=== PATIENT | male | born 1950 | race Caucasian/White ===

== ENCOUNTER → 2020-03-12 14:53 | Outpatient (BNVA) | payer OTHER, MEDICARE, SELFPAY | PROVIDERS: PCP Internal Medicine; Visit Provider Hospitalist ==

== ENCOUNTER → 2020-09-09 15:52 | Outpatient (BNVA) | payer MEDICARE, SELFPAY | PROVIDERS: PCP Internal Medicine; Visit Provider Hospitalist | DX: G47.33 Obstructive sleep apnea (adult) (pediatric) (principal); J41.0 Simple chronic bronchitis; R07.9 Chest pain, unspecified; Z99.89 Dependence on other enabling machines and devices | CPT/HCPCS: 99212 ==

== ENCOUNTER 2021-03-08 14:58 | Outpatient (REF) | payer MEDICARE, SELFPAY ==
--- NOTE | ~2021-03-08 | XR_ITS ---
EXAMINATION: XR CHEST CLINICAL INFORMATION: Chest pain COMPARISON: Chest radiograph from 02/24/2019 TECHNIQUE: 2 views of the chest were obtained. FINDINGS: No focal consolidation. No pneumothorax. Trachea is midline. Cardiomediastinal silhouette is not enlarged. Aorta demonstrates atherosclerotic calcifications. No large pleural effusion. Stable elevation the right hemidiaphragm. Degenerative changes of the thoracolumbar spine. Soft tissues are unremarkable. XR/XR chest 2V IMPRESSION: No acute cardiopulmonary process.
== END 2021-03-08 14:59 | disposition home or self-care (01) ==
LOC: HO.XRAY 14:58
PROVIDERS: PCP Internal Medicine; Visit Provider Hospitalist
DX: R07.9 Chest pain, unspecified (principal); J41.0 Simple chronic bronchitis; Z99.89 Dependence on other enabling machines and devices
CPT/HCPCS: 71046

== ENCOUNTER → 2021-07-08 15:03 | Outpatient (BNVA) | payer MEDICARE, SELFPAY | PROVIDERS: PCP Internal Medicine; Visit Provider Hospitalist | DX: J41.0 Simple chronic bronchitis (principal); G47.33 Obstructive sleep apnea (adult) (pediatric); R09.89 Other specified symptoms and signs involving the circulatory and respiratory systems; Z99.89 Dependence on other enabling machines and devices | CPT/HCPCS: 99212 ==

== ENCOUNTER 2022-04-11 09:04 | Day surgery (SDC) | payer MEDICARE, SELFPAY ==
--- NOTE | 2022-04-10 13:15 | P.CONAN_ITS ---
Documented by User: Natali Santana NP 04/10/22 13:16 HPI - Anesthesia Eval Consult details Narrative: 72yo M for Colonoscopy PMFSH Active Problems Active Problems: All Active Problems (Updated 04/10/22 @ 12:51 by Jennifer Weir RN) Chest crackles (Acute) COPD (chronic obstructive pulmonary disease) (Acute) Asthma (Acute) ISMA on CPAP (Acute) Chest pain (Acute) Past Medical History Medical History (Updated 04/10/22 @ 12:51 by Jennifer Weir RN) Anxiety Asthma Basal cell carcinoma Chest crackles Chest pain COPD (chronic obstructive pulmonary disease) Eczema External hemorrhoid GERD (gastroesophageal reflux disease) HTN (hypertension) Hypercholesteremia Neuropathy ISMA on CPAP Seizure Unsteady gait Vertigo Surgical History Surgical History (Updated 04/10/22 @ 12:51 by Jennifer Weir RN) H/O lymph node excision History of carpal tunnel release History of cataract surgery Social History Social History (Updated 03/08/21 @ 15:23 by JIMMY Cortez) Patient Tobacco Use Status: Former Tobacco user Tobacco use type: Cigarette Years Smoked: 30+ years Are you DNR?: No Advance Directives: No Advance Directives Information Provided: Yes Nutrition Risks: No Nutritional Risk Meds Allergies Allergy/AdvReac Type Severity Reaction Status Date / Time Seasonal Allergies Allergy Unknown Verified 04/10/22 12:46 Home Medications Medication Instructions Recorded Confirmed Last Taken Type albuterol sulfate 90 mcg/actuation 2 puff inhalation Q4-6H PRN 03/12/20 03/12/20 04/10/22 History aerosol inhaler Wheezing budesonide-formoterol HFA 160 2 puff inhalation BID 03/12/20 03/12/20 04/10/22 History mcg-4.5 mcg/actuation aerosol inhaler (Symbicort) fexofenadine 180 mg tablet 180 mg PO DAILY 03/12/20 03/12/20 04/10/22 History (Zoya Allergy) fluticasone propionate 50 1 spray intranasal BID 03/12/20 03/12/20 04/10/22 History mcg/actuation nasal spray,suspension lorazepam 0.5 mg tablet 0.5 mg PO DAILY PRN Anxiety 03/12/20 03/12/20 02/07/22 History multivitamin (Daily Multi-Vitamin 1 tab PO DAILY 03/12/20 03/12/20 04/10/22 History tablet) omeprazole 20 mg capsule,delayed 20 mg PO BID 03/12/20 03/12/20 04/10/22 History release phenytoin sodium extended 200 mg 200 mg PO BID 03/12/20 03/12/20 04/11/22 History capsule pyridoxine (vitamin B6) 50 mg 50 mg PO DAILY 03/12/20 03/12/20 04/10/22 History tablet simvastatin 40 mg tablet 40 mg PO DAILY 03/12/20 03/12/20 04/10/22 History tamsulosin 0.4 mg capsule (Flomax) 0.4 mg PO DAILY 03/12/20 03/12/20 04/10/22 History vitamin B complex 1 cap PO DAILY 03/12/20 03/12/20 04/10/22 History zonisamide 50 mg capsule 50 mg PO BID 03/12/20 03/12/20 04/11/22 History gabapentin 600 mg tablet 1,200 mg PO BID 03/08/21 04/10/22 History metoprolol succinate 25 mg 1 tab PO DAILY 04/11/22 04/11/22 04/11/22 History tablet,extended release 24 hr Exam Exam Date and Time: April 10, 2022 131 Assessment and Plan Assessment Anesthesia Assessment: Chart Reviewed Documented by User: Joan Jiménez MD 04/11/22 10:07 [facility] Past Medical History Medical History (Updated 04/10/22 @ 12:51 by Jennifer Weir RN) Anxiety Asthma Basal cell carcinoma Chest crackles Chest pain COPD (chronic obstructive pulmonary disease) Eczema External hemorrhoid GERD (gastroesophageal reflux disease) HTN (hypertension) Hypercholesteremia Neuropathy ISMA on CPAP Seizure Unsteady gait Vertigo Family History Family history of problems with anesthesia: No Surgical History Surgical History (Updated 04/10/22 @ 12:51 by Jennifer Weir RN) H/O lymph node excision History of carpal tunnel release History of cataract surgery History of Problems with Anesthesia: No Social History Social History (Updated 03/08/21 @ 15:23 by JIMMY Cortez) Patient Tobacco Use Status: Former Tobacco user Tobacco use type: Cigarette Years Smoked: 30+ years Are you DNR?: No Advance Directives: No Advance Directives Information Provided: Yes Nutrition Risks: No Nutritional Risk Meds Allergies Allergy/AdvReac Type Severity Reaction Status Date / Time Seasonal Allergies Allergy Unknown Verified 04/10/22 12:46 Home Medications Medication Instructions Recorded Confirmed Last Taken Type albuterol sulfate 90 mcg/actuation 2 puff inhalation Q4-6H PRN 03/12/20 03/12/20 04/10/22 History aerosol inhaler Wheezing budesonide-formoterol HFA 160 2 puff inhalation BID 03/12/20 03/12/20 04/10/22 History mcg-4.5 mcg/actuation aerosol inhaler (Symbicort) fexofenadine 180 mg tablet 180 mg PO DAILY 03/12/20 03/12/20 04/10/22 History (Zoya Allergy) fluticasone propionate 50 1 spray intranasal BID 03/12/20 03/12/20 04/10/22 History mcg/actuation nasal spray,suspension lorazepam 0.5 mg tablet 0.5 mg PO DAILY PRN Anxiety 03/12/20 03/12/20 02/07/22 History multivitamin (Daily Multi-Vitamin 1 tab PO DAILY 03/12/20 03/12/20 04/10/22 History tablet) omeprazole 20 mg capsule,delayed 20 mg PO BID 03/12/20 03/12/20 04/10/22 History release phenytoin sodium extended 200 mg 200 mg PO BID 03/12/20 03/12/20 04/11/22 Hist ory capsule pyridoxine (vitamin B6) 50 mg 50 mg PO DAILY 03/12/20 03/12/20 04/10/22 History tablet simvastatin 40 mg tablet 40 mg PO DAILY 03/12/20 03/12/20 04/10/22 History tamsulosin 0.4 mg capsule (Flomax) 0.4 mg PO DAILY 03/12/20 03/12/20 04/10/22 History vitamin B complex 1 cap PO DAILY 03/12/20 03/12/20 04/10/22 History zonisamide 50 mg capsule 50 mg PO BID 03/12/20 03/12/20 04/11/22 History gabapentin 600 mg tablet 1,200 mg PO BID 03/08/21 04/10/22 History metoprolol succinate 25 mg 1 tab PO DAILY 04/11/22 04/11/22 04/11/22 History tablet,extended release 24 hr Exam Airway Mallampati Class: II TM Dist: >3cm Neck ROM: Full Denture: Upper and Lower Heart: rrr Lungs: cta Assessment and Plan Assessment Anesthesia Assessment: Anesthesia Plan Discussed Final Anesthetic Review Family History of Problems with Anesthesia: No History of Problems with Anesthesia: No NPO: Yes ASA Class: III Final Preanesthetic Review: No Changes in Pt Med Stat, Meds/Allgs Chart Reviewed, Consent Obtained/Reviewed and Anes Risks/Benef Reviewed Patient Risk: Intermediate Procedure Risk: Low Anesthetic Plan Anesthetic Plan: MAC: Disposition: Standard PACU
[2022-04-11 06:23] VITALS: BMI 28.1
[2022-04-11 09:07] VITALS: BP 130/78; PULSE 76; RESP 18; TEMP 36.6; O2SAT 98
[2022-04-11] MEDS: Lactated Ringers 1,000 ML 100 ML IVCONT (09:53)
--- NOTE | 2022-04-11 10:31 | MHC.SHP ---
Pre-Procedural Eval Section A Date of Service: 04/11/22 Section B Chief Complaint: screening Details of Present Illness: see H&P no changes Relevant Family History (Specify if Yes): No Relevant Social History: None Present Medications: see Short Stay Collaborative assessment Medical History: No relevant PMH History of Previous Operations: No relevant previous surgery Allergies: Allergies Allergy/AdvReac Type Severity Reaction Status Date / Time Seasonal Allergies Allergy Unknown Verified 04/10/22 12:46 Review of Systems Sugical H&P ROS: Negative: Constitution, Cardiovascular, Respiratory, Neurological, Psychiatric, Hem-Onc, Allergic/Immunologic, Gastrointestinal, Genitourinary, Musculoskeletal, Integumentary, Endocrine and Eyes/Ears/Nose/Throat Exam Surgical H&P Exam: Normal: HEENT, Normal: Heart, Normal: Lungs, Normal: Extremities, Normal: Abdomen, Normal: Skin and Normal: Neurological Plan Diagnosis/Plan: Unchanged I have reviewed the history and physical and performed a pertinent physical examination on my patient. No changes have occurred unless specified. Time Spent With Patient Time: Total time managing care of this patient today ____ minutes.
--- NOTE | 2022-04-11 11:04 | PM.OP ---
Brief Operative Note Date of Service: 04/11/22 Pre-op diagnosis: screening Post-op diagnosis: same Surgeon: Lopez Fletcher Anesthesia: MAC Was an Rescue Boat Operator used for this Procedure?: No Estimated blood loss (mL): 2 Pathology: other Condition: stable Disposition: PACU
[2022-04-11 11:10] VITALS: BP 103/61; PULSE 57; RESP 18; TEMP 36.8; O2SAT 94
[2022-04-11 11:25] VITALS: BP 122/61; PULSE 51; RESP 18; TEMP 36.8; O2SAT 98
[2022-04-11 11:40] VITALS: BP 142/70; PULSE 48; RESP 18; TEMP 36.8; O2SAT 98
--- NOTE | 2022-04-11 11:40 | OP_ITS ---
SURGEON: Lopez Fletcher MD INDICATIONS: Colon cancer screening and prior history of adenomatous colon polyps. PREOPERATIVE DIAGNOSIS: POSTOPERATIVE DIAGNOSIS: PROCEDURE PERFORMED: Colonoscopy to the terminal ileum with biopsy and snare polypectomy. ESTIMATED BLOOD LOSS: COMPLICATIONS: ANESTHESIA: Monitored anesthesia care. ASSISTANTS: SPECIMENS: DESCRIPTION OF PROCEDURE: The procedure was performed on 04/11/2022. A history and physical were performed. The risks and benefits of the procedure were explained to the patient. Informed consent was obtained. The patient was placed in the left lateral decubitus position. A digital rectal exam was performed and was found to be normal. The Olympus pediatric video colonoscope was introduced into the rectum and advanced to the cecum without difficulty. The cecum was identified by transillumination, palpation, and identification of ileocecal valve examination was performed. The scope was removed. He tolerated the procedure well and was returned to the recovery area in stable condition. FINDINGS: The terminal ileum was normal. The visualized colonic mucosa was normal. There was some liquid stool limiting the sensitivity examination for detection of small polyps in the right colon and transverse colon. This was washed and suctioned. There were multiple colonic polyps removed with a combination of snare polypectomy and biopsy forceps. All were less than 10 mm. A polyp in the right colon was removed with the cold snare but not recovered due to technical reasons. Other polyps at 70 cm, 65 cm, 50 cm, and 45 cm were all removed, recovered. There was mild sigmoid diverticulosis. Retroflexed examination showed small internal hemorrhoids. IMPRESSION: Colon polyps. RECOMMENDATION: Follow up the biopsy results. MD JEFF Clark/JOHNATHAN / [id number] MTDD
== END 2022-04-11 12:30 | disposition home or self-care (01) ==
PROVIDERS: PCP Family Medicine; Visit Provider Internal Medicine Gastroenterology
PROC: 0DJD8ZZ Inspection of Lower Intestinal Tract, Via Natural or Artificial Opening Endoscopic (ICD-10-PCS; CPT 45378; principal; 2022-04-11 10:30)
DX: Z12.11 Encounter for screening for malignant neoplasm of colon (principal); Z86.010 Personal history of colon polyps; D12.4 Benign neoplasm of descending colon; D12.5 Benign neoplasm of sigmoid colon; K57.30 Diverticulosis of large intestine without perforation or abscess without bleeding; K64.8 Other hemorrhoids; K64.4 Residual hemorrhoidal skin tags; K21.9 Gastro-esophageal reflux disease without esophagitis; I10 Essential (primary) hypertension; E78.00 Pure hypercholesterolemia, unspecified; J45.909 Unspecified asthma, uncomplicated; G47.33 Obstructive sleep apnea (adult) (pediatric); G62.9 Polyneuropathy, unspecified; R56.9 Unspecified convulsions; R26.81 Unsteadiness on feet; Z79.51 Long term (current) use of inhaled steroids; Z79.899 Other long term (current) drug therapy
CPT/HCPCS: 45385; 45380; 88305; J3010

== ENCOUNTER → 2022-08-08 13:46 | Outpatient (BNVA) | payer MEDICARE, SELFPAY | PROVIDERS: PCP Family Medicine; Visit Provider Hospitalist | DX: G47.33 Obstructive sleep apnea (adult) (pediatric) (principal); J41.0 Simple chronic bronchitis; R09.89 Other specified symptoms and signs involving the circulatory and respiratory systems; Z99.89 Dependence on other enabling machines and devices; Z23 Encounter for immunization | CPT/HCPCS: 90471; 90677; 99212 ==

== ENCOUNTER → 2022-12-14 14:41 | Outpatient (REF) | payer MEDICARE, SELFPAY ==
--- NOTE | 2022-12-14 14:43 | CA_ITS ---
Transthoracic Echocardiogram Patient (Last, First, Middle): Jamie Gaston, Gender: Male Date of : 1950 Age: 72 Procedure Date: 12/14/2022 Procedure Type: Transthoracic Echocardiogram Location: OP Height: 167.64 cm Weight: 78.93 kg BSA: 1.89 m2 Heart Rate: 50 bpm BP: 152 / 70 mmHg Stamping Die Try Out Worker: SELENA/SHEMAR Referring MD: Fabiana Tripathi MD Tilting Head Band Sawyer: Royer Negro MD Symptoms: I31.39 PERICARDIAL EFFUSION NON INFLAMMATORY Study Quality: Adequate ECG Rhythm: Sinus bradycardia Conclusions: - 1. Normal LV ejection fraction 60 65% with normal diastolic filling pattern 2. Normal cardiac valvular Doppler 3. Mildly dilated ascending aorta 3.8 cm 4. Small circumferential pericardial effusion without clear evidence of tamponade Findings Left Ventricle Normal left ventricular size, thickness, and systolic function. The visually estimated ejection fraction is between 60-65%. Spectral Doppler is indicative of a normal filling pattern. Right Ventricle Normal right ventricular cavity size and systolic function. Atria The left atrium is normal in size. There is lipomatous hypertrophy of the interatrial septum. There is no evidence of interatrial shunt. The right atrium is normal in size. Aortic Valve The aortic valve structure and function is likely normal. There is no aortic valve stenosis. There is no aortic valve regurgitation. Mitral Valve Normal mitral valve structure and function. There is trace mitral valve regurgitation. There is no mitral valve stenosis. Pulmonic Valve The pulmonic valve is likely normal. Tricuspid Valve Normal tricuspid valve structure. Tricuspid regurgitation envelope is inadequate for calculation of right ventricular systolic pressure. Normal right atrial pressure. Great Vessels The pulmonary artery was not well visualized. There is mild dilatation of the ascending aorta measuring 3.80 cm. Venous The inferior vena cava is normal in size and collapses greater than 50% with inspiration. Pericardium/Pleural There is a small circumferential pericardial effusion. There are no definitive echocardiographic findings of tamponade physiology. Prior Study Comparison No prior study available for comparison. Measurements 2D Linear Measurements IVSd: 0.97 0.6-0.9/0.6-1.0 cm LVIDd: 5.46 3.9-5.3/4.2-5.9 cm LVIDd Index: 2.89 2.4-3.2/2.2-3.1 cm/m2 LVIDs: 3.18 2.0-3.6 cm LVPWd: 0.77 0.7-1.1 cm LA Diam: 4.80 2.7-3.8/3.0-4.0 cm LAIDs Index: 2.54 1.5-2.3 cm/m2 LV Mass: 217.76 67-162/88-224 g LV Mass Index: 115.22 43-95/49-115 g/m2 LVOT Diam: 2.10 3.0+(-)1.3 cm 2D Systolic Function EF 4C: 66.70 >55% EF 2C: 56.00 >55% EF BiP: 63.10 >55% Mitral Valve MV Pk E: 1.18 MV PK A: 0.81 MV Decel Time: 197.00 E/A: 1.50 E'Lateral: 5.44 E'Medial: 5.55 E/E' Med: 21.30 E/E' Lat: 21.70 PHT: 58.00 MVA PHT: 3.79 Decel [place]: 5.98 Aortic Valve AoV Pk Gagandeep: 1.27 AoV Mn Gagandeep: 0.93 AoV VTI: 0.31 AoV Pk Grad: 6.00 Aov Mn Grad: 4.00 RAQUEL Cont.VTI: 2.82 AI Pk Gagandeep: 4.73 AI [place]: 1.98 LVOT LVOT Pk Gagandeep: 1.05 LVOT Mn Gagandeep: 0.69 LVOT VTI: 0.25 LVOT Pk Grad: 4.00 LVOT Mn Grad: 2.00 LVOT Diam: 2.10 LVOT Area: 3.46 Diastolic Function MV Pk E: 1.18 MV Pk A: 0.81 E/A: 1.50 E'Medial: 5.55 E/E' Med: 21.30 E' Laterial: 5.44 E/E' Lat: 21.70 Right Ventricle TAPSE (mm): 23.90 TVS' Gagandeep: 13.90 Tricuspid Valve RA Press: 3.00 Great Vessels Aorta Sinus of Valsalva: 3.40 2.0-3.5 cm Ao Asc: 3.80 2.1-3.4 cm Pulmonary Veins Pulm Vein S/D 1.30 Pulmonary Valve PV Pk Gagandeep: 1.09 Peak PV Grad: 5.00 Updated in Other Vendor System with Status of Final Royer Negro MD electronically signed on 12/14/2022 4:19:10 PM with status of Final
== END ==
LOC: HO.CARD 14:41
PROVIDERS: PCP Family Medicine; Visit Provider Family Medicine
DX: I31.9 Disease of pericardium, unspecified (principal)
CPT/HCPCS: 93306

== ENCOUNTER → 2022-12-14 14:43 | Outpatient (BNV) | payer MEDICARE, SELFPAY | PROVIDERS: PCP Family Medicine; Visit Provider Internal Medicine Cardiovascular Disease | DX: I31.39 Other pericardial effusion (noninflammatory) (principal) | CPT/HCPCS: 93306 ==

== ENCOUNTER 2023-06-07 13:54 | Outpatient (AMB) | payer MEDICARE, SELFPAY ==
[2023-06-07 14:01] VITALS: PULSE 58; O2SAT 98; BMI 27.9
--- NOTE | 2023-06-07 14:01 | A.OFFVIS_ITS ---
Vital Signs 06/07/23 14:01 Height 5 ft 6 in Weight 173 lb BMI 27.9 Pulse 58 Pulse Source Pulse Oximeter Pulse Oximetry (%) 98 Oxygen Delivery Method Room Air Intake Visit Reasons: isma Rac Specialist Required: No Allergies Seasonal Allergies Allergy (Verified 06/07/23 14:03) Unknown HPI Comments Details: The patient is a 73-year-old? gentleman with a known history of COPD in addition obstructive sleep apnea. He? has been tolerating his CPAP. The CPAP therapy has been affecting beneficial.? However the mask can does follow often does have some leakage issues. His AHI? upon download in the machine demonstrated that was elevated at 7.5. The average? pressure was around 12.5 cm of mercury. I did adjust the machine up to 8 cm to? 16 cm. A ramp will be at 6 cm. Patient also complains of back pain. Sometimes is? right-sided chest pain along with the period he did have a complete cardiac? evaluation last year. At this point will request a chest x-ray. He continues use? respiratory therapy. He is also complaining of difficulty sleeping. He was given? Ativan to see if that will help him relax. However, the patient will avoid? taking the Ativan if possible to try to minimize dependence. 07/08/2021 the patient is here for a pulmonary follow-up visit. Overall the patient has been doing well. He continues use the CPAP. Although recently did undergo skin cancer surgery and he could not use his mask because of the surgical site. Therefore, he was sleeping elevated and did very well in a did not have any significant snoring or daytime drowsiness. However, once he lays down flat or on his side he does have significant sleep apnea. He is wondering about other devices such as the hypoglossal nerve stimulator. I advised against this because of his invasive nature. Also is not as effective as the goal standard. The patient is agreeable to continue CPAP at this time. The surgical site appears to have healed and therefore he will go ahead and restart using his CPAP from a respiratory status is doing well he has not required any rescue inhalers. 08/08/2022 the patient is here for pulmonary follow-up visit. Overall the patient is doing well. He is having some difficulties tolerating the CPAP pressures. She feels like her to high sometimes. He does have some air leakage. His AHI is slightly elevated at 4.9 events per hour. It appears that he has high AHI is when he has more air leakage. I did tweak the pressure is somewhat decreasing the maximum pressure from 18-16 in increasing the minimum pressure from 10-11 cm. The patient also also has a ramp. He also continues uses respiratory therapy with good effect. Still has some crackles on examination but minimal. Will have a chest x-ray prior to the next visit sometime in the spring. 06/07/2023 the patient is here for a pulmonary follow-up visit. Overall he is doing very well. He is using Wixela regularly. Has not had to use his rescue inhaler. Denies any recent sickness. His last chest x-ray was back in 2021 demonstrating no acute disease although he does have an elevated right hemidiaphragm. In addition to that he had an echocardiogram because of some chest discomfort. Found to have a small trivial pericardial effusion and a slightly dilated ascending aorta. He will continue to be monitor for that. From a sleep apnea standpoint he has been using the CPAP every night. He does use it every night more than 4 hours a night. He does use it fullface mask, F 30 that fits him well. Get supplies from his [employer] company, [employer]. Will go ahead and resend a script so he can continue getting supplies this time. In addition he is noticed some lower extremity edema. Left is typically more than the right side. Will try some compression stockings to see if this is helpful decreasing some of his symptoms. [facility] Medical History (Updated 06/07/23 @ 14:16 by Ayush Draper MD) Leg swelling Basal cell carcinoma Unsteady gait External hemorrhoid Vertigo Eczema Anxiety Neuropathy Seizure GERD (gastroesophageal reflux disease) HTN (hypertension) Hypercholesteremia Chest crackles COPD (chronic obstructive pulmonary disease) Asthma ISMA on CPAP Chest pain Surgical History (Updated 04/10/22 @ 12:51 by Jennifer Weir RN) History of cataract surgery H/O lymph node excision History of carpal tunnel release Social History (Updated 03/08/21 @ 15:23 by JIMMY Cortez) Patient Tobacco Use Status: Former Tobacco user Tobacco use type: Cigarette Years Smoked: 30+ years Review of Systems Const Denies night sweats Eyes Reports dry eyes ENT Denies change in voice, Denies lip swelling, Denies mouth pain, Reports nasal congestion, Reports nasal discharge and Denies tongue swelling Card Denies chest pain Resp Reports cough GI Denies abdominal pain Musc Denies no additional complaints Neuro Denies Neuro-related abnormal movements Psych Denies no additional complaints Timothy/Lymph Denies easy bleeding and Denies lymphadenopathy Aller/Immun Denies lip swelling and Denies tongue swelling Physical Exam Vital Signs: Last Vital Signs Pulse 58 06/07/23 14:01 Pulse Ox 98 06/07/23 14:01 Oxygen Delivery Method Room Air 06/07/23 14:01 BMI result Body Mass Index 27.9 Const General: alert Eyes Pupils: Equal, round and reactive pupils present Neck Neck: Yes normal visual inspection, Yes full ROM and Yes no lymphadenopathy Chest Chest palpation & inspection: normal inspection of the chest Resp Auscultation: diminished lung sounds Cardio Rate: regular rate Rhythm: regular rhythm Heart sounds: S1 normal heart sound present and S2 normal heart sound present GI Palpation (GI): Soft to palpation and nontender Auscultation: normal bowel sounds Neuro Cranial nerves: Yes Equal, round and reactive pupils present Assessment & Plan Assessment & Plan (1) COPD (chronic obstructive pulmonary disease): Code(s): J44.9 - Chronic obstructive pulmonary disease, unspecified Category: Medical Qualifiers: COPD type: chronic bronchitis Chronic bronchitis type: simple Qualified Code(s): J41.0 - Simple chronic bronchitis (2) ISMA on CPAP: Code(s): G47.33 - Obstructive sleep apnea (adult) (pediatric); Z99.89 - Dependence on other enabling machines and devices Category: Medical (3) Chest crackles: Comment: secondary to right sided elevated diaphram Code(s): R09.89 - Other specified symptoms and signs involving the circulatory and respiratory systems Category: Medical (4) Leg swelling: Code(s): M79.89 - Other specified soft tissue disorders Category: Medical Plan Continue APAP ,mask, F 30, Adjusted APAP 11-1 Ramp 6 Continue respiratory therapy including short-acting beta agonist, Wixela continue allergy therapy as needed compression stockings follow-up in 12 months Medications: New compress.stocking,knee,reg,lrg 15-20cm 2 ea 0RF M79.89 - Other specified soft tissue disorders Coding Level of Care Code Est Pt Level 4 (63614) Diagnoses Simple chronic bronchitis J41.0 COPD type: chronic bronchitis Chronic bronchitis type: simple ISMA on CPAP G47.33; Z99.89 Chest crackles R09.89 Leg swelling M79.89 Time Spent (min) 16
== END 2023-06-07 14:21 | disposition home or self-care (01) ==
PROVIDERS: PCP Family Medicine; Visit Provider Hospitalist
DX: J41.0 Simple chronic bronchitis (principal); G47.33 Obstructive sleep apnea (adult) (pediatric); Z99.89 Dependence on other enabling machines and devices; R09.89 Other specified symptoms and signs involving the circulatory and respiratory systems; M79.89 Other specified soft tissue disorders
CPT/HCPCS: 99214

== ENCOUNTER → 2023-06-07 13:54 | Outpatient (BNVA) | payer MEDICARE, SELFPAY | PROVIDERS: PCP Family Medicine; Visit Provider Hospitalist | DX: J41.0 Simple chronic bronchitis (principal); G47.33 Obstructive sleep apnea (adult) (pediatric); R09.89 Other specified symptoms and signs involving the circulatory and respiratory systems; M79.89 Other specified soft tissue disorders; Z99.89 Dependence on other enabling machines and devices | CPT/HCPCS: 99212 ==

== ENCOUNTER 2024-09-10 10:30 | Outpatient (AMB) | payer MEDICARE, SELFPAY ==
--- OUTSIDE RECORDS SUMMARY | 2024-07-17 11:00 | XMS_ITS ---
Author Name [facility] [place] Organization [facility] [place] Address [address] [place] [id number] Care Team Providers Care Rivet Hole Machine Operator Name Role Phone SUSIE KOWALSKI Primary Care Provider Unavail able Insurance Providers: All historical and current Section Date Range: From patient's date of to the date document was created. This section includes the names of all active insurance providers for the patient. Insurance Provider Type of Coverage Plan Name Start of Policy Coverage End of Policy Coverage Group Number Member ID Insurance Provider's Telephone Number Policy Harvey's Name Patient's Relationship to Policy Harvey [facility] [employer] [place] Feb 13, 2012 [id number] [phone] KATIE SHOOK [facility] [employer] N ACQUI STI HDHP Feb 13, 2012 [id number] [phone] KATIE SHOOK [facility] ([facility]) MEDICARE ADVANTAGE [facility] ([facility]) Feb 12, 2021 [id number] RADHA SHOOK PATIENT MEDICARE (WNR) MEDICARE (M) PART B Nov 12, 2004 PART B [id number] RADHA SHOOK PATIENT MEDICARE (WN) MEDICARE (M) PART A Apr 12, 2004 PART A [id number] RADHA SHOOK PATIENT [facility] (WNR) MEDICARE ADVANTAGE [facility] (R) Mar 15, 2020 [id number] RADHA SHOOK PATIENT Selected Encounter This section includes the information on record at [place] for the Encounter. Date/Time Encounter Type Encounter Description Reason Provider Source Jul 17, 2024 03:00 PM [facility] AUDIOLOGY ICD-10-CM Z46.1 Encounter for fitting and adjustment of hearing aid CHAVO FLORES Encounter Template Text not used by [place] Assessments - Encounter Diagnoses This section includes the primary and secondary diagnoses documented for the Encounter. Date/Time Primary/Secondary Diagnosis Diagnosis Name Provider Source Jul 17, 2024 03:38 PM PRIMARY Encounter for fitting and adjustment of hearing aid ROCIO FLORES [facility] Jul 17, 2024 03:38 PM SECONDARY Sensorineural hearing loss, bilateral ROCIO FLORES [facility] Plan of Treatment: Future Appointments (+ 6 months) and Future Tests (+/- 45 days) The Plan of Treatment section includes future care activities for the patient from all [place] treatmentfacilities. This section includes future appointments and future orders which are active, pending or scheduled. Future Appointments This section includes appointments that were scheduled to occur 6 months from the date of the Encounter, up to a maximum of 20 appointments. The data comes from all [place] treatment facilities. Appointment Date/Time Appointment Type Appointme nt Facility Name Sep 02, 2024 03:00 PM [facility] Social History: Smoking Status (Most current) and Tobacco Use (All prior to encounter date) This section includes the most current, and the historical, smoking and tobacco- related health factors from the [place] facility where the Encounter took place. Current Smoking Status This section includes the most current smoking, or tobacco-related health factor, from the [place] facility where the Encounter took place. Date/Time Current Smoking Status Comment Facil aydeey Sep 04, 2023 03:00 PM AR-TOBACCO QUIT 15 YRS OR MORE [facility] Tobacco Use History This section includes a history of the smoking, or tobacco-related health factors, that were collected on or before the date of the Encounter. The data comes from the AR facility where the Encounter took place. Date/Time Smoking Status/Tobacco Use Comment F acility Sep 04, 2023 03:00 PM VA-TOBACCO QUIT 15 YRS OR MORE [facility] [place] [facility] Sep 05, 2022 02:00 PM VA-TOBACCO FORMER USER [facility] [place] [facility] Sep 05, 2022 02:00 PM VA-TOBACCO QUIT 15 YRS OR MORE [facility] [place] [facility] Sep 05, 2021 02:00 PM VA-TOBACCO FORMER USER [facility] [place] [facility] Sep 05, 2021 02:00 PM VA-TOBACCO QUIT 15 YRS OR MORE [facility] [place] [facility] Aug 31, 2020 01:30 PM VA-TOBACCO FORMER USER [facility] [place] [facility] Aug 31, 2020 01:30 PM VA-TOBACCO QUIT 15 YRS OR MORE [facility] [place] [facility] Aug 25, 2019 10:21 AM VA-TOBACCO FORMER USER [facility] [place] [facility] Aug 25, 2019 10:21 AM VA-TOBACCO QUIT 15 YRS OR MORE [facility] [place] [facility] Aug 27, 2017 03:22 PM VA-TOBACCO NEVER USED [facility] [place] [facility] Aug 27, 2017 02:57 PM QUIT TOBACCO USE > 7 YEARS AGO [facility] [place] [facility] June 30, 2016 01:39 PM QUIT TOBACCO USE > 7 YEARS AGO [facility] [place] [facility] Sep 09, 2013 03:03 PM LIFETIME NON-TOBACCO USER [facility] [place] [facility] Encounter Notes: All associated encounter notes This section contains the clinical notes associated to the Encounter. Date/Time Encounter Note(s) Provider Source Jul 17, 2024 07:45 AM AUDIOLOGY E & M NOTE: LOCAL TITLE: AUDIOLOGY CLINIC STANDARD TITLE: AUDIOLOGY E & M NOTE DATE OF NOTE: JUL 17, 2024@07:45 ENTRY DATE: JUL 17, 2024@07:45:52 AUTHOR: CHAVO FLORES COSIGNER: URGENCY: STATUS: COMPLETED Dx CODE: Z46.1- Encounter for Fitting/Programming Hearing Aid(s); H90.3- Sensorineural Hearing Loss, Bilateral APPOINTMENT TYPE: Hearing Aid Fitting SUBJECTIVE (S): The patient was seen for hearing aid fitting and issuance. He had previously been evaluated and found to exhibit significant hearing loss for which amplification was recommended. He is a previous user of hearing aids, and was fit with Natalie Nakul Edge AI RICs. These devices were sent out for repair due to excessive battery drain and will be mailed directly to from [facility]. How does the patient best learn? Verbal instruction, demonstration Does the patient have any cultural and sabianism beliefs, emotional barriers, physical or cognitive limitations, and communication barriers which may impact his ability to learn? No Desire and motivation to learn? Good OBJECTIVE (O): Physical fit of earmolds/receivers and hearing aids was good. Patient verified comfort. Verification of an appropriate acoustic response was obtained using Real Ear measurements (speech mapping) and NAL- NL2 targets. The patient reported good subjective benefit as well. Feedback dairy bar manager was run. Hearing aids were found to be meeting targets adequately and MPO was not exceeding estimated UCL. Settings stored in ROMAN. ASSESSMENT (A): The following devices were issued: Make: Natalie Model: Tanesha AI ELLI Right Serial Number: [id number] Left Serial Number: [id number] Battery size: 312 Warranty ends: 07/25/27 Trial Period ends: 12/22/24 Wax prevent: Extended bung remover tube Object Oriented Developer size/power: size 3 P Earmold Information: AP canal lock Program(s): Automatic Button(s): Short press= unlinked VC via rocker switch Long press= Accessory start/stop Fitting Formula: NAL-NL2 Counseling was completed throughout todays appointment using a standardized curriculum that includes but is not limited to; realistic expectations with amplification in adverse listening environments, acclimatization to own voice and environmental sounds (following real-ear measurements), the importance of consistent use of amplification, proper insertion/removal, care and maintenance (including wax guards/domes if applicable), signal and alerts of devices, and charging/batteries. The was provided the opportunity to practice in office and reports confidence/understanding in all items reviewed. Time Spent= 20 minutes The patient was informed of and signed/agreed to [place] policy on hearing aid issuance: Yes Users are responsible for the maintenance and security of their devices. Determination of need to replace a hearing aid is made by the AR summer sessions director. Hearing aids will not be replaced in cases of neglect, abuse, or excessive loss. Items issued are for personal use only. Prognosis for successful hearing aid use is good. PLAN (P): 1. Follow-up for programming/adjustments as needed. 2. The International Outcome Inventory-Hearing Aids (IOI-TELLES) will be mailed to the in four weeks. He was asked to complete and mail back to clinic after completion. Patient Education Education provided on the following topics: Hearing aid use, care, maintenance Education provided to: P Response to Education: KIRIT DONG, PI Atkinson Patient P Family F Significant Other SO Verbalizes Understanding VU Returns Demonstration RD Performs Independently PI Lacks Comprehension LC Refused Education RE Not Applicable NA /anthony/ CHAVO FLORES STAFF GREEN END MAN Signed: 07/17/2024 15:38 CHAVO FLORES [facility]
[2024-09-10 10:32] VITALS: BP 120/58; PULSE 68; O2SAT 96; BMI 27.6
--- NOTE | 2024-09-10 10:32 | MHC.OFFVIS ---
Vital Signs 09/10/24 10:32 Height 5 ft 6 in Weight 170 lb 13.732 oz BMI 27.6 BP 120/58 L Blood Pressure Location Lt brachial Position Sitting Pulse 68 Pulse Source Pulse Oximeter Pulse Oximetry (%) 96 Oxygen Delivery Method Room Air Intake Visit Reasons: Obstructive sleep apnea Log Yard Derrick Operator Required: No Allergies Seasonal Allergies Allergy (Verified 09/10/24 10:37) Unknown HPI Comments Details: The patient is a 74 year-old? gentleman with a known history of COPD in addition obstructive sleep apnea. He? has been tolerating his CPAP. The CPAP therapy has been affecting beneficial.? However the mask can does follow often does have some leakage issues. His AHI? upon download in the machine demonstrated that was elevated at 7.5. The average? pressure was around 12.5 cm of mercury. I did adjust the machine up to 8 cm to? 16 cm. A ramp will be at 6 cm. Patient also complains of back pain. Sometimes is? right-sided chest pain along with the period he did have a complete cardiac? evaluation last year. At this point will request a chest x-ray. He continues use? respiratory therapy. He is also complaining of difficulty sleeping. He was given? Ativan to see if that will help him relax. However, the patient will avoid? taking the Ativan if possible to try to minimize dependence. 07/08/2021 the patient is here for a pulmonary follow-up visit. Overall the patient has been doing well. He continues use the CPAP. Although recently did undergo skin cancer surgery and he could not use his mask because of the surgical site. Therefore, he was sleeping elevated and did very well in a did not have any significant snoring or daytime drowsiness. However, once he lays down flat or on his side he does have significant sleep apnea. He is wondering about other devices such as the hypoglossal nerve stimulator. I advised against this because of his invasive nature. Also is not as effective as the goal standard. The patient is agreeable to continue CPAP at this time. The surgical site appears to have healed and therefore he will go ahead and restart using his CPAP from a respiratory status is doing well he has not required any rescue inhalers. 08/08/2022 the patient is here for pulmonary follow-up visit. Overall the patient is doing well. He is having some difficulties tolerating the CPAP pressures. She feels like her to high sometimes. He does have some air leakage. His AHI is slightly elevated at 4.9 events per hour. It appears that he has high AHI is when he has more air leakage. I did tweak the pressure is somewhat decreasing the maximum pressure from 18-16 in increasing the minimum pressure from 10-11 cm. The patient also also has a ramp. He also continues uses respiratory therapy with good effect. Still has some crackles on examination but minimal. Will have a chest x-ray prior to the next visit sometime in the spring. 06/07/2023 the patient is here for a pulmonary follow-up visit. Overall he is doing very well. He is using Wixela regularly. Has not had to use his rescue inhaler. Denies any recent sickness. His last chest x-ray was back in 2021 demonstrating no acute disease although he does have an elevated right hemidiaphragm. In addition to that he had an echocardiogram because of some chest discomfort. Found to have a small trivial pericardial effusion and a slightly dilated ascending aorta. He will continue to be monitor for that. From a sleep apnea standpoint he has been using the CPAP every night. He does use it every night more than 4 hours a night. He does use it fullface mask, F 30 that fits him well. Get supplies from his [employer] company, [employer]. Will go ahead and resend a script so he can continue getting supplies this time. In addition he is noticed some lower extremity edema. Left is typically more than the right side. Will try some compression stockings to see if this is helpful decreasing some of his symptoms. 09/10/2024 the patient is here for a pulmonary follow-up visit. Overall he is doing okay although he developed a worsening cough. Worse when he lays flat. Sometimes productive of sometimes he swallows it. It does affect his sleeping is also fighting when he uses the CPAP. Positive sick contacts. Appears to be more of a postnasal drip and sinusitis. His lungs are clear. In the meantime he is using the CPAP. The CPAP therapy continues to be affecting beneficial. He does use it for more than 4 hours. He is using the F30 mask. Seems to fit okay but then it loosens and leaks. His average leakage is 2076 L/min. Therefore I did provide him with a trial of a large F20 AirTouch foam mask that I do believe that will fit better for him. He is going to try it if it works well he will let me know so I can order. Will have the same pressures 11-16 [facility] Medical History (Updated 06/07/23 @ 14:16 by Ayush Draper MD) Leg swelling Basal cell carcinoma Unsteady gait External hemorrhoid Vertigo Eczema Anxiety Neuropathy Seizure GERD (gastroesophageal reflux disease) HTN (hypertension) Hypercholesteremia Chest crackles COPD (chronic obstructive pulmonary disease) Asthma ISMA on CPAP Chest pain Surgical History (Updated 04/10/22 @ 12:51 by Jennifer Weir RN) History of cataract surgery H/O lymph node excision History of carpal tunnel release Social History Patient Tobacco Use Status: Former Tobacco user Tobacco use type: Cigarette Years Smoked: 30+ years Review of Systems Const Denies night sweats Eyes Reports dry eyes ENT Denies change in voice, Denies lip swelling, Denies mouth pain, Reports nasal congestion, Reports nasal discharge, Reports post nasal drip and Denies tongue swelling Card Denies chest pain Resp Reports cough GI Denies abdominal pain Musc Denies no additional complaints Neuro Denies Neuro-related abnormal movements Psych Denies no additional complaints Timothy/Lymph Denies easy bleeding and Denies lymphadenopathy Aller/Immun Denies lip swelling and Denies tongue swelling Physical Exam Vital Signs: Last Vital Signs Pulse 68 09/10/24 10:32 BP 120/58 L 09/10/24 10:32 Pulse Ox 96 09/10/24 10:32 Oxygen Delivery Method Room Air 09/10/24 10:32 BMI result Body Mass Index 27.6 Const General: alert HEENT Throat: Yes postnasal drainage Eyes Pupils: Equal, round and reactive pupils present Neck Neck: Yes normal visual inspection, Yes full ROM and Yes no lymphadenopathy Chest Chest palpation & inspection: normal inspection of the chest Resp Auscultation: diminished lung sounds Cardio Rate: regular rate Rhythm: regular rhythm Heart sounds: S1 normal heart sound present and S2 normal heart sound present GI Palpation (GI): Soft to palpation and nontender Auscultation: normal bowel sounds Neuro Cranial nerves: Yes Equal, round and reactive pupils present Assessment & Plan Assessment & Plan (1) COPD (chronic obstructive pulmonary disease): Code(s): J44.9 - Chronic obstructive pulmonary disease, unspecified Category: Medical Qualifiers: COPD type: chronic bronchitis Chronic bronchitis type: simple Qualified Code(s): J41.0 - Simple chronic bronchitis (2) ISMA on CPAP: Code(s): G47.33 - Obstructive sleep apnea (adult) (pediatric); Z99.89 - Dependence on other enabling machines and devices Category: Medical (3) Leg swelling: Code(s): M79.89 - Other specified soft tissue disorders Category: Medical Plan Continue APAP ,mask, APAP 11-16 Ramp 6, trial F20 Foam large Continue respiratory therapy including short-acting beta agonist, Wixela continue allergy therapy as needed compression stockings OTC mucinex nasal spray start doxycycline follow-up in 12 months Medications: New doxycycline monohydrate 100 mg PO BID 20 tabs 0RF 10 days Coding Level of Care Code Est Pt Level 4 (50692) Complex EM visit Add On G2211 Diagnoses Simple chronic bronchitis J41.0 COPD type: chronic bronchitis Chronic bronchitis type: simple ISMA on CPAP G47.33; Z99.89 Leg swelling M79.89 Time Spent (min) 18
--- OUTSIDE RECORDS SUMMARY | 2024-09-10 11:26 | XMS_ITS | Patient Health Record ---
Author Organization [facility] Address [address] [place] [id number] Care Team Providers Care Varnisher Apprentice Name Role Phone CECI ESQUIVEL MD Primary Care Provider Lopez Junior Jr Unavailable Allergies Allergen (clinical drug ingredient) Drug/Non Drug Allergy documented on EMR Reaction Allergy Type Onset Date Status seasonal (uncoded) Unknown Allergy A ctive dampness (uncoded) Unknown Allergy A ctive Reason For Referral No Information Medications Medication SIG (Take, Route, Frequency, Duration) Notes Start Date End Date Status Imodium Advanced Act beltran Saline Nasal [place] 0.65 % 2 sprays in ea ch nostril as needed Nasally seasonal allergies Active Nikki (Zingiber officinalis) Active Albuterol as directed Inhalation Active LORazepam 0.5 MG as directed Orally a s needed Active Gabapentin 600mg 2 tablet Orally TWIC E A DAY Active Zonisamide 25 MG 1 capsule Orally Twi ce a day Active Daily Combo Multi Vitamins Active Flonase Active Phenytoin 100 mg 200 MG CAPS Orally 2 IN AM 2 IN PM Active Omeprazole 20mg BID Acti ve Zoya Allergy Acti ve Simvastatin 40 MG 1 tablet in the even ing Orally Once a day Active Tamsulosin HCl 0.4 MG 2 capsules Orally Once a day Active Wixela Inhub 250-50 MCG/ACT 1 puff Inhalation Twice a day Active Vitamin B Complex - Orally Active Clobetasol Propionate 0.05 % 1 application Externally as needed Active Vitamin B-6 50 MG 2 tablets Orally Onc e a day Active MiraLax (colon prep) 17 GM/SCOOP mixed with Gatorade or Crystal Light Orally begin at 5:00 p.m. the day before the procedure for 1 day 03/09/2022 Active CeraVe Acne Foaming Cream Active Fiber 625mg Active Immunizations Vaccine Route Administration Date Status Comme nts Influenza Unknown 11/08/2018 Administered Influenza Unknown 11/14/2021 Administered Problems Problem Type SNOMED Code ICD Code Onset Dates Problem Status W/U Status Risk Notes Problem 742043730 Colon cancer screening (Z12.11) Active confirmed Problem History of polyp of colon (situation) (947603038) Personal history of colonic polyps (Z86.010) Active confirmed Problem 87142299 Hemorrhoids, unspecified hemorrhoid type (K64.9) Active confirmed Problem 849902207 Long-term curren t use of high risk medication other than anticoagulant (Z79.899) Active confirmed Problem 60776137 Diarrhea, unspecified type (R19.7) Active confirmed Plan Of Treatment Future Test Test Name Order Date COLONOSCOPY 02/02/2016 COLONOSCOPY 03/09/2022 Insurance Providers Payer Name Payer Address Payer Phone Subscriber Number Group Number Insured Name Patient Relationship to Insured Coverage Start Date Coverage End Date [facility] [address] [place] [phone] [id number] RADHA SHOOK Self - patient is the insured Medical (General) History Medical History History ICD Code colonosocpy 05/05/16, tubular adenomas x3 , three-year followup. hypercholesterolemia hypertension gastroesophageal reflux disease (GERD) seizures neuropathy anxiety asthma eczema seasonal allergies vertigo External hemorrhoids with other complica tion 455.5 ISMA/CPAP and unsteady gait Surgical History Surgery Date(Month/Year) carpal tunnel release lymph node removed under arm-benign cataract-lens implants-right eye basil cell left side of cheek left ear b ehind , arm 2021 multiple basil cell 2009
== END 2024-09-10 11:07 | disposition home or self-care (01) ==
LOC: HO.HPS 10:31
PROVIDERS: PCP Family Medicine; Visit Provider Hospitalist
DX: J41.0 Simple chronic bronchitis (principal); G47.33 Obstructive sleep apnea (adult) (pediatric); Z99.89 Dependence on other enabling machines and devices; M79.89 Other specified soft tissue disorders
CPT/HCPCS: 99214; G2211

== ENCOUNTER → 2024-09-10 10:30 | Outpatient (BNVA) | payer MEDICARE, SELFPAY | PROVIDERS: PCP Family Medicine; Visit Provider Hospitalist | DX: G47.33 Obstructive sleep apnea (adult) (pediatric) (principal); J41.0 Simple chronic bronchitis; Z99.89 Dependence on other enabling machines and devices; M79.89 Other specified soft tissue disorders | CPT/HCPCS: 99212 ==

== ENCOUNTER 2024-11-05 14:05 | Outpatient (AMB) | payer MEDICARE, SELFPAY ==
--- NOTE | 2024-11-05 14:07 | HO.SPINEOV ---
Vital Signs 11/05/24 14:13 Height 5 ft 6 in Weight 170 lb BMI 27.4 Intake Visit Reasons: L1 Compression Fx. Intake Note: Mr. Gaston is here today c/o Low back pain. Pumper Hand Required: No Allergies Seasonal Allergies Allergy (Verified 11/05/24 14:13) Unknown Physical Exam Vital Signs: BMI result Body Mass Index 27.4 Assessment & Plan Assessment & Plan (1) Left leg pain: Code(s): M79.605 - Pain in left leg Category: Medical Plan Jamie is a pleasant 74 year old male who comes in today for evaluation of left leg pain. He is self-referred to our clinic today. He reports that he sustained a L1 compression fracture several months ago, which was treated via kyphoplasty at an outside facility. He had a recent MRI completed which showed some compression of the bilateral L4 nerves. Therefore he wished to come in today for evaluation. When describing his left leg pain he states that it is very low-grade in nature, and further states that he is primarily concerned with a ?heaviness? that he feels in his left leg. At rest, he has no pain, and states that he primarily experiences a low-grade pain with increased activity. He denies any shooting pains down his lower extremities. He denies any numbness/tingling associated with the pain. No burning associated with the pain. No saddle anesthesia. No bowel/bladder incontinence. He did recently complete a course of physical therapy back in May. He has not attempted cortisone injections in an effort to treat this. He has been taking Tylenol and gabapentin at home to try and mitigate some of his symptoms. PMH: No incoming medical records as the patient was self-referred. He attempted to provide history with the assistance of his . They state that he has a history of high blood pressure, seizures, high cholesterol, eczema, GERD, neuropathy. 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 Social hx: The patient does not smoke, reports no substance use. Medications: See SCHEDit list. Allergies: Doxycycline Physical exam: The patient has about 4/5 strength with left-sided iliopsoas testing. The rest of his upper and lower extremity strength is 5/5. He ambulates slightly hunched over with the assistance of a cane. He is able to rise from a seated position with the assistance of a chair, and climbs up onto the examination table with some difficulty but is able to do so independently. His reflexes are 2+ intact diffusely. He has no significant sensational deficits reported on examination to light touch. (-) bilateral straight leg raise. (-) Javed's. (-) clonus. Imaging review: MRI of the lumbar spine completed at [facility] on 09/27/2024 shows evidence of L1 compression fracture with kyphoplasty performed. 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 Impression: Jamie is a pleasant 74-year-old male who comes in today for evaluation of primarily left lower extremity leg pain. He does have notable nerve compression at L4-5, however in the absence of significant central canal stenosis I do not believe that the low-grade pain that he experiences while ambulating can be correlated to the nerve compression seen at L4-5. We did discuss the possibility of having him sent for injections at L4-5 to see if he obtains any meaningful relief his leg pain as a result of this, however he declined as he feels his pain is not bad enough to warrant injections. He attempted asked several questions regarding his kyphoplasty, all of which I was largely unable to answers we did not perform this procedure for him. I encouraged him to follow up with his practitioner that completed the kyphoplasty. Thank you for allowing us to care for your patient. The total time spent with this visit with this patient was 45 minutes reviewing history, physical exam, MRI imaging review, and implementation of treatment plan or further diagnostic testing Aime Ferguson MD,PhD [facility] Coding Level of Care Code New Pt Level 4 (90823) Diagnoses Left leg pain M79.605
[2024-11-05 14:13] VITALS: BMI 27.4
--- OUTSIDE RECORDS SUMMARY | 2024-11-05 16:39 | XMS_ITS | Encounter Summary ---
Author Organization [facility] Address [address] [place] [address] [place] [address] Phone Care Team Providers Care Program Management Intern Name Role Phone Ayush Draper MD Unavailable [phone] Beto Maravilla MD Unavailable [phone] Jamie Rai DO Unavailable [phone] Guzman Nicolas MD Unavailable [phone] Carlos A Enamorado MD Unavailable Kvng Joya MD, PhD Unavailable [phone] Hector Albrecht MD Unavailable [phone] Fabiana Tripathi MD Primary Care Provider + Fabiana Tripathi MD Primary Care Provider + Reason for Referral * - Closed Specialty Diagnoses / Procedures Referred By Sara desai Referred To Contact Diagnoses Palpitations Procedures MCT (Mobile Cardiac Telemetry) Fabiana Tripathi MD [facility] [place], [address] [place] [address] Phone: tel: fax: mailto:[email or web address] Referral ID Status Reason Start Date Expiration Date Visits Re quested Visits Authorized [id number] Closed 10/11/2021 10/11/2022 1 1 Encounter Details Date Type Department Care Team (Late st Contact Info) Description 10/11/2021 Ancillary Orders [facility] Medicine [address] [place] [address] Fabiana Tripathi MD [address] [facility], [address] [place] [address] angel [email or web address] Palpitations Social History Tobacco Use Types Packs/Day Years Used Date Smoking Tobacco: Former Cigarettes 0.3 3 1 965 - 8347 Smokeless Tobacco: Never Alcohol Use Standard Drinks/Week Comments Never 0 (1 standard drink = 0.6 oz pur e alcohol) Child or Family Care Answer Date Record ed Do you have problems with on e of the following making it difficult for you to work, study, or receive health care? No 07/27/2020 Food Answer Date Recorded Worried food would run out Not on file 07/27 Within the past 6 months the food we bought just didn't last and we didn't have enough money to get more. Never True 07/13 Residential Stability Answer Date Recor ded Family situation today data Not on file 07/13 How many times have you move d in the past 12 months? Zero (I did not move) 07/27/2020 Not on file 07/27/2020 Paying Utility Bills Answer Date Record ed Do you have trouble paying your heating or elect ricity bill? No 07/27/2020 Transportation Answer Date Recorded Has the lack of transportati on kept you from medical appointments or from getting medications? No 07/27/2020 Unemployment Answer Date Recorded Are you currently unemployed or working on a part-time or temporary basis, and looking for work? No 07/27/2020 Sex and Gender Information Value Date Recorded Sex Assigned at Male 04/06/2021 6:27 PM EST Legal Sex Male 10:04 PM EDT Gender Identity Male 04/06/2021 6:27 PM EST Sexual Orientation Straight 10/26/2022 6: 52 PM EDT documented as of this encounter Plan of Treatment Upcoming Encounters Date Type Department Care Team (Late st Contact Info) Description 07/02/2024 Procedure Pass [facility], [facility] [address] [place] [address] 01/21/2025 1:15 PM EST Office Visit [address] [address] Fabiana Tripathi MD [address] [facility], [address] [place] [address] angel [email or web address] 02/02/2025 2:30 PM EST Appointment [facility] [address] [place] [address] Fabiana Tripathi MD [address] [facility], [facility] [address] [place] [address] angel 04/16/2025 2:30 PM EST Office Visit [facility] Neurology [address] [place] [address] Daniel Bustillo MD 22 [facility], 2nd [place] [address] [email or web address] Scheduled Orders Name Type Priority Associated Diagnoses Orde r Schedule MCT (Mobile Cardiac Telemetry) Cardiac Monitors Routine Palpitations Expected: 09/09/2021, Expires: 02/09/2022 documented as of this encounter Visit Diagnoses Diagnosis Palpitations documented in this encounter Additional Health Concerns Infection Onset Date Last Indicated Resolved Time CoV-Presumed 01/01/2022 01/01/2022 01/22/2022 1:21 AM EST CoV-Risk 06/15/2023 06/15/2023 06/26/2023 1:22 AM EDT CDiff-Risk 09/24/2024 09/24/2024 09/24/2024 8:48 PM EDT Assessment Noted Time PHQ-2 Depression Total Score: 0 08/08/19 10:24 AM EDT documented as of this encounter Care Teams Program Management Intern Relationship Specialty Start Date End Date Fabiana Tripathi MD [address] [place] [address], [address] [place] [address] [email or web address] PCP - General Family Medicine 07/27/21 08/07/22 Fabiana Tripathi MD [address] [place] [address], [address] [place] [address] angel PCP - General Family Medicine 08/08/22 Ayush Draper MD [address] [place] [address] [place] [address] Registered Nurse Pulmonary Disease 01/26/20 Beto Maravilla MD [address] [address] Psychiatry 01/26/20 Jamie Rai DO [address] [address] [email or web address] Cardiology 01/26/20 Guzman Nicolas MD [address] [place] [address] Ophthalmology 01/26/20 Carlos A Enamorado MD [address] [place] [address], [address] [address] [email or web address] Urology 01/26/20 Kvng Joya MD, PhD [address] [place] [address], [address] [address] Dermatology 01/26/20 Hector Albrecht MD [address] [place] [address], [address] [address] (work) [email or web address] Otolaryngology 01/26/20 documented as of this encounter Additional Source Comments The information contained in this document represents components of the legal health record. It is not the complete legal health record.[facility]
--- OUTSIDE RECORDS SUMMARY | 2024-11-05 16:39 | XMS_ITS | Encounter Summary ---
Author Organization [facility] Address [address] [facility] [address] [place] [address] Phone Care Team Providers Care Loss Prevention Guard Name Role Phone Lucian Zendejas MD Primary Care Provider [phone] Lucian Zendejas MD Unavailable [phone] Ayush Draper MD Unavailable [phone] Beto Maravilla MD Unavailable [phone] Jaime Rai DO Unavailable [phone] Guzman Nicolas MD Unavailable Carlos A Enamorado MD Unavailable Kvng Joya MD, PhD Unavailable [phone] Hector Albrecht MD Unavailable [phone] Fabiana Tripathi MD Primary Care Provider + Fabiana Tripathi MD Primary Care Provider + Encounter Details Date Type Department Care Team (Latest Contact Info) Description 04/12/2019 Transcribe Orders [facility] Laboratory [address] [place], [place] [id number] Beto Maravilla MD [address] [place] [address] 7 [place] [address] Dizziness and giddiness (Primary Dx); Special sensory attacks Social History Tobacco Use Types Packs/Day Years Used Date Smoking Tobacco: Former Cigarettes Q uit: 1969 Smokeless Tobacco: Never Sex and Gender Information Value Date Recorded Sex Assigned at Male 04/06/2021 6:27 PM EST Legal Sex Male 10:04 PM EDT Gender Identity Male 04/06/2021 6:27 PM EST Sexual Orientation Straight 10/26/2022 6: 52 PM EDT documented as of this encounter Plan of Treatment Upcoming Encounters Date Type Department Care Team (Late st Contact Info) Description 07/02/2024 Procedure Pass [address] [address] 01/21/2025 1:15 PM EST Office Visit [address] [address] Fabiana Tripathi MD [address] [place] [address] [place] 02/02/2025 2:30 PM EST Appointment [address] [address] Fabiana Tripathi MD [address] [place] [address] [place] 04/16/2025 2:30 PM EST Office Visit [facility] Neurology [address] [place] [address] Daniel Bustillo MD [address] [place] [address], [address] [place] [address] documented as of this encounter Results * Dilantin level (04/12/2019 10:10 AM EST) DILANTIN 16.8 10 - 20 ug/mL [facility] Blood 04/12/2019 10:1 0 AM EST 04/12/2019 10:12 AM EST Beto Maravilla MD LAB BLOOD ORDERABLE S Final Result [facility] [address] [place] [address] documented in this encounter Visit Diagnoses Diagnosis Dizziness and giddiness- Primary Special sensory attacks Other convulsions documented in this encounter Additional Health Concerns Infection Onset Date Last Indicated Resolved Time CoV-Exposed Comment:Recent close contact 02/05/2020 02/05/2020 02/19/2020 1:23 AM EST CoV-Exposed Comment:Recent close contact documented in the COVID-19 PCR/PRO order 12/31/2020 01/05/2021 01/15/2021 1:[address] CoV-Presumed 01/01/2022 01/01/2022 01/22/2022 1:21 AM EST CoV-Risk 06/15/2023 06/15/2023 06/26/2023 1:22 AM EDT CDiff-Risk 09/24/2024 09/24/2024 09/24/2024 8:48 PM EDT Assessment Noted Time PHQ-2 Depression Total Score: 1 11/13/19 19 2:14 PM EDT documented as of this encounter Care Teams Loss Prevention Guard Relationship Specialty Start Date End Date Lucian Zendejas MD [address] [place] [address] [email or web address] PCP - General Internal Medicine 01/02/17 07/26/21 Fabiana Tripathi MD [address] [place] [address], [address] [address] [place] PCP - General Family Medicine 07/27/21 08/07/22 Fabiana Tripathi MD [address] [place] [address], [address] [place] [address] angel PCP - General Family Medicine 08/08/22 Lucian Zendejas MD [address] [address] [email or web address] Insurance Assigned Provider 06/15/18 10/23/20 Ayush Draper MD [address] [place] [address] [place] [address] Registered Nurse Pulmonary Disease 01/26/20 Beto Maravilla MD 46 [facility] 7 [place] [address] Psychiatry 01/26/20 Jamie Rai DO 46 [facility] 7 [place] [address] [email or web address] Cardiology 01/26/20 Guzman Nicolas MD [address] [place] [address] Ophthalmology 01/26/20 Carlos A Enamorado MD [address] [place] [address], [address] [address] [email or web address] Urology 01/26/20 Kvng Joya MD, PhD [address] [place] [address], [address] [address] Dermatology 01/26/20 Hector Albrecht MD [address] [place] [address], [address] [address] [email or web address] Otolaryngology 01/26/20 documented as of this encounter Additional Source Comments The information contained in this document represents components of the legal health record. It is not the complete legal health record.[facility]
--- OUTSIDE RECORDS SUMMARY | 2024-11-05 16:39 | XMS_ITS | Encounter Summary ---
Author Organization [facility] Address [address] [place] [address] [place] [address] Phone Care Team Providers Care Stock Worker Name Role Phone Lucian Zendejas MD Primary Care Provider + [phone] Lucian Zendejas MD Unavailable [phone] Ayush Draper MD Unavailable Beto Maravilla MD Unavailable [phone] Jamie Rai DO Unavailable [phone] Guzman Nicolas MD Unavailable Carlos A Enamorado MD Unavailable Kvng Joya MD, PhD Unavailable Hector Albrecht MD Unavailable [phone] Fabiana Tripathi MD Primary Care Provider + aFbiana Tripathi MD Primary Care Provider + Reason for Referral * Physical Therapy (Routine) - Closed Specialty Diagnoses / Procedures Referred By Sara desai Referred To Contact Physical Therapy Diagnoses Dizzy Nel Concepcion PA-C Phone: tel: fax: mailto:[email or web address] [address] [address] Phone: tel: Referral ID Status Reason Start Date Expiration Date Visits Re quested Visits Authorized [id number] Closed 12/03/2018 07/13/2019 37 37 Encounter Details Date Type Department Care Team (Latest Contact Info) Description 12/03/2018 Transcribe Orders [facility] Services [address] [place] [address] Nel Concepcion PA-C [address] [place] [address] [email or web address] Kwasi (Primary Dx) Social History Tobacco Use Types Packs/Day Years [...] st Contact Info) Description 07/02/2024 Procedure Pass [address] [address] 01/21/2025 1:15 PM EST Office Visit [facility] [address] [address] Fabiana Tripathi MD [address] [place] [address] [place] 02/02/2025 2:30 PM EST Appointment [address] [address] Fabiana Tripathi MD [address] [place] [address] [place] 04/16/2025 2:30 PM EST Office Visit [facility] Neurology [address] [place] [address] Daniel Bustillo MD 22 [facility], 2nd [place] [address] [email or web address] Scheduled Referrals Name Type Priority Associated Diagnoses Order Schedule Ambulatory referral to [facility] Physical Therapy Outpatient Referral Routine Dizzy Ordered: 12/03/2018 documented as of this encounter Visit Diagnoses Diagnosis Dizzy- Primary Dizziness and giddiness documented in this encounter Additional Health Concerns [...] Time PHQ-2 Depression Total Score: 1 11/13/19 2:14 PM EDT documented as of this encounter Care Teams Stock Worker Relationship Specialty Start Date End Date Lucian Zendejas MD [address] [place] [address] [email or web address] PCP - General Internal Medicine 01/02/17 07/26/21 Fabiana Tripathi MD [address] [place] [address], [address] [address] angel [email or web address] PCP - General Family Medicine 07/27/21 08/07/22 Fabiana Tripathi MD [address] [place] [address] 7 [place] [address] angel [email or web address] PCP - General Family Medicine 08/08/22 Lucian Zendejas MD [address] [place] [address] [email or web address] Insurance Assigned Provider 06/15/18 10/23/20 Ayush Draper MD [address] [place] [address] [place] [address] Registered Nurse Pulmonary Disease 01/26/20 Beto Maravilla MD [address] [address] Psychiatry 01/26/20 Jamie Rai DO [address] [address] [email or web address] Cardiology 01/26/20 Guzman Nicolas MD [address] [place] [address] Ophthalmology 01/26/20 Carlos A Enamorado MD [address] [place] [address], [address] [address] [email or web address] 01/26/20 Kvng Joya MD, PhD [address] [place] [address], [address] [address] Dermatology 01/26/20 Hector Albrecht MD [address] [place] [address], [address] [address] [email or web address] Otolaryngology 01/26/20 documented as of this encounter Additional Source Comments The information contained in this document represents components of the legal health record. It is not the complete legal health record.[facility]
--- OUTSIDE RECORDS SUMMARY | 2024-11-05 16:39 | XMS_ITS | Clinical Summary ---
Author Organization [facility] Address [address] [place] [address] Care Team Providers Care Market Editor Name Role Phone Unknown, Provider MD Primary Care Provider Unava ilable Social History Tobacco Use Types Packs/Day Years Used Date Smoking Tobacco: Never Assessed Sex and Gender Information Value Date Recorded Sex Assigned at Not on file Legal Sex Male 18:55 EST Gender Identity Not on file Sexual Orientation Not on file Plan of Treatment Health Maintenance Due Date Last Done Comments Hepatitis C Screen 1950 Fall Risk Screening 2014 COVID-19 Vaccine ( season) 2023 RSV Immunization ( o r 60+ Years) (1 - 1-dose 75+ series) 01/07/2024 Care Teams Market Editor Relationship Specialty Start Date End Date Unknown, Provider, PCP - General 05/23/11
--- OUTSIDE RECORDS SUMMARY | 2024-11-05 16:40 | XMS_ITS | Encounter Summary ---
Author Organization [facility] Address [address] [facility] [address] [place] [address] Phone Care Team Providers Care Manager Personnel Selection Name Role Phone Lucian Zendejas MD Primary Care Provider [phone] Ayush Draper MD Unavailable Beto Maravilla MD Unavailable [phone] Jamie Rai DO Unavailable [phone] Guzman Nicolas MD Unavailable [phone] Carlos A Enamorado MD Unavailable Kvng Joya MD, PhD Unavailable [phone] Hector Albrecht MD Unavailable [phone] Fabiana Tripathi MD Primary Care Provider + Fabiana Tripathi MD Primary Care Provider + Encounter Details Date Type Department Care Team (Late st Contact Info) Description 04/06/2021 Procedure Pass [facility], Ct Scan - [address] [phone] Social History Tobacco Use Types Packs/Day Years Used Date Smoking Tobacco: Former Cigarettes 0.3 3 1 965 - 1968 Smokeless Tobacco: Never Alcohol Use Standard Drinks/Week [...] PM EDT documented as of this encounter Functional Status * Calculated C-SSRS Risk Score (Lifetime/Recent) Answer Date of Assessment Author No Risk Indicated 04/06/2021 6:26 PM Susannah Martinez, RN * [place] Suicide Severity Rating Scale (Screener/Recent Self-Report) Question Answer Date of Assessment Author 1. Wish to be (Past 1 Month) No 022 6:26 PM Susannah Martinez, RN 2. Non-Specific Active Suici samantha Thoughts (Past 1 Month) No 04/06/2021 6:26 PM Susannah Martinez , RN 6. Suicidal Behavior (Lifetime) No 6:26 PM Susannah Martinez, RN documented as of this encounter Plan of Treatment Upcoming Encounters Date Type Department Care Team (Late st Contact Info) Description 07/02/2024 Procedure Pass [facility], Ct Scan - [address] [address] 01/21/2025 1:15 PM EST Office Visit [facility] Medicine [address] [place] [address] Fabiana Tripathi MD [address] [facility], [address] [place] [address] [email or web address] 02/02/2025 2:30 PM EST Appointment [facility], Ct Scan - [address] [address] Fabiana Tripathi MD [address] [facility], [address] [place] [address] [email or web address] 04/16/2025 2:30 PM EST Office Visit [facility] Neurology [address] [place] [address] Daniel Bustillo MD [address] [place] [address], [address] [place] [address] [email or web address] documented as of this encounter Visit Diagnoses Not on filedocumented in this encounter Additional Health Concerns Infection Onset Date Last Indicated Resolved Time CoV-Presumed 01/01/2022 01/01/2022 01/22/2022 1:21 AM EST CoV-Risk 06/15/2023 06/15/2023 06/26/2023 1:22 AM EDT CDiff-Risk 09/24/2024 09/24/2024 09/24/2024 8:48 PM EDT Assessment Noted Time PHQ-2 Depression Total Score: 0 02/25/19 3:30 PM EST documented as of this encounter Care Teams Manager Personnel Selection Relationship Specialty Start Date End Date Lucian Zendejas MD [address] [place] [address] [email or web address] PCP - General Internal Medicine 01/02/17 Fabiana Tripathi MD [address] [place] [address], [address] [place] [address] [email or web address] PCP - General Family Medicine 07/27/21 08/07/22 Fabiana Tripathi MD [address] [place] [address], [address] [place] [address] [email or web address] PCP - General Family Medicine 08/08/22 Ayush Draper MD [address] [place] [address] [place] [address] Registered Nurse Pulmonary Disease 01/26/20 Beto Maravilla MD [address] [address] Psychiatry 01/26/20 Jamie Rai DO [address] [place] [address] [email or web address] Cardiology 01/26/20 Guzman Nicolas MD [address] [place] [address] Ophthalmology 01/26/20 Carlos A Enamorado MD [address] [place] [address], [address] [place] [address] Urology 01/26/20 Kvng Joya MD, PhD [address] [place] [address], [address] [address] Dermatology 01/26/20 Hector Albrecht MD [address] [place] [address], [address] [address] [email or web address] Otolaryngology 01/26/20 documented as of this encounter Additional Source Comments The information contained in this document represents components of the legal health record. It is not the complete legal health record.[facility]
--- OUTSIDE RECORDS SUMMARY | 2024-11-05 16:40 | XMS_ITS | Encounter Summary ---
Author Organization [facility] Address [address] [place] [address] [place] [address] Phone Care Team Providers Care Radiographic Technologist Name Role Phone Lucian Zendejas MD Primary Care Provider [phone] Lucian Zendejas MD Unavailable [phone] Ayush Draper MD Unavailable Beto Maravilla MD Unavailable [phone] Jamie Rai DO Unavailable [phone] Guzman Nicolas MD Unavailable [phone] Carlos A Enamorado MD Unavailable [facility] gutier[facility] MD, PhD Unavailable Hector Albrecht MD Unavailable [phone] Fabiana Tripathi MD Primary Care Provider + Fabiana Tripathi MD Primary Care Provider + Encounter Details Date Type Department Care Team (Latest Contact Info) Description 01/15/2018 Transcribe Orders [address] [address] Carlos A Enamorado MD [address] [facility], [address] [place], [place] [id number] [email or web address] Enlarged prostate with urinary obstruction (Primary Dx) Social History Tobacco Use Types [...] st Contact Info) Description 07/02/2024 Procedure Pass [address] [address] 01/21/2025 1:15 PM EST Office Visit [address] [address] Fabiana Tripathi MD [address] [place] [address] angel 02/02/2025 2:30 PM EST Appointment [address] [address] Fabiana Tripathi MD [address] [place] [address] angel 04/16/2025 2:30 PM EST Office Visit [facility] Neurology [address] [place] [address] Daniel Bustillo MD [address] [place] [address], [address] [place] [address] documented as of this encounter Results * PSA (screening) (01/15/2018 11:55 AM EST) PSA 2.19 0 - 4.00 ng/mL Blood 01/15/2018 11:5 5 AM EST 01/15/2018 11:59 AM EST Carlos A Enamorado MD LAB BLOOD ORDERABLES Final Resul t 30 [place] [address] documented in this encounter Visit Diagnoses Diagnosis Enlarged prostate with urinary obstruction- Primary 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 (LUTS) documented in this encounter Additional Health Concerns [...] Noted Time PHQ-2 Depression Total Score: 0 08/25/19 18 4:35 PM EDT documented as of this encounter Care Teams Radiographic Technologist Relationship Specialty Start Date End Date Lucian Zendejas MD [address] [place] [address] [email or web address] PCP - General Internal Medicine 01/02/17 07/26/21 Fabiana Tripathi MD [address] [place] [address], [address] [place] [address] angel PCP - General Family Medicine 07/27/21 08/07/22 Fabiana Tripathi MD [address] [place] [address], [address] [place] [address] angel [email or web address] PCP - General Family Medicine 08/08/22 Lucian Zendejas MD [address] [place] [address] [email or web address] Insurance Assigned Provider 06/15/18 10/23/20 Ayush Draper MD [address] [place] [address] [place] [address] Registered Nurse Pulmonary Disease 01/26/20 Beto Maravilla MD [address] [address] Psychiatry 01/26/20 Jamie Rai DO [address] [address] [email or web address] Cardiology 01/26/20 Guzman Nicolas MD [address] [place] [address] Ophthalmology 01/26/20 Carlos A Enamorado MD [address] [place] [address], [address] [address] [email or web address] Urology 01/26/20 Kvng Joya MD, PhD [address] [place] [address], [address] [place] [address] Dermatology 01/26/20 Hector Albrecht MD [address] [place] [address], [address] [address] [email or web address] Otolaryngology 01/26/20 documented as of this encounter Additional Source Comments The information contained in this document represents components of the legal health record. It is not the complete legal health record.[facility]
--- OUTSIDE RECORDS SUMMARY | 2024-11-05 16:40 | XMS_ITS | Encounter Summary ---
Author Organization [facility] Address [address] [facility] [address] [place] [address] Phone Care Team Providers Care Patient Support Representative Name Role Phone Lucian Zendejas MD Primary Care Provider [phone]- [phone] Ayush Draper MD Unavailable Beto Maravilla MD Unavailable [phone] Jamie Rai DO Unavailable [phone] Guzman Nicolas MD Unavailable Carlos A Enamorado MD Unavailable Kvng Joya MD, PhD Unavailable Hector Albrecht MD Unavailable [phone] Fabiana Tripathi MD Primary Care Provider + Fabiana Tripathi MD Primary Care Provider + Encounter Details Date Type Department Care Team (Late st Contact Info) Description 04/06/2021 Procedure Pass [facility], Ct Scan - [address] [phone] Social History Tobacco Use Types Packs/Day Years [...] 04/06/2021 6:26 PM Susannah Martinez, RN * [place] Suicide Severity Rating Scale (Screener/Recent Self-Report) Question [...] st Contact Info) Description 07/02/2024 Procedure Pass [facility], Ct Scan - [address] [address] 01/21/2025 1:15 PM EST Office Visit [facility] Medicine [address] [place] [address] Fabiana Tripathi MD [address] [facility], [address] [place] [address] [email or web address] 02/02/2025 2:30 PM EST Appointment [facility], Ct Scan - [address] [address] Fabiana Tripathi MD [address] [facility], [address] [place] [address] [email or web address] 04/16/2025 2:30 PM EST Office Visit [facility] Neurology [address] [place] [address] Daniel Bustillo MD [address] [place] [address], [address] [place] [address] [email or web address] documented as of this encounter Visit Diagnoses Not on filedocumented in this encounter Additional Health Concerns Infection Onset Date Last Indicated Resolved Time CoV-Presumed 01/01/2022 01/01/2022 01/22/2022 1:21 AM EST CoV-Risk 06/15/2023 06/15/2023 06/26/2023 1:22 AM EDT CDiff-Risk 09/24/2024 09/24/2024 09/24/2024 8:48 PM EDT Assessment Noted Time PHQ-2 Depression Total Score: 0 02/25/19 3:30 PM EST documented as of this encounter Care Teams Patient Support Representative Relationship Specialty Start Date End Date Lucian Zendejas MD [address] [place] [address] [email or web address] PCP - General Internal Medicine 01/02/17 Fabiana Tripathi MD [address] [place] [address], [address] [place] [address] [email or web address] PCP - General Family Medicine 07/27/21 08/07/22 Fabiana Tripathi MD [address] [place] [address], [address] [place] [address] [email or web address] PCP - General Family Medicine 08/08/22 Ayush Draper MD [address] [place] [address] [place] [address] Registered Nurse Pulmonary Disease 01/26/20 Beto Maravilla MD [address] [address] Psychiatry 01/26/20 Jamie Rai DO [address] [place] [address] [email or web address] Cardiology 01/26/20 Guzman Nicolas MD [address] [place] [address] Ophthalmology 01/26/20 Carlos A Enamorado MD [address] [place] [address], [address] [place] [address] [email or web address] Urology 01/26/20 Kvng Joya MD, PhD [address] [place] [address], [address] [address] Dermatology 01/26/20 Hector Albrecht MD [address] [place] [address], [address] [address] [email or web address] Otolaryngology 01/26/20 documented as of this encounter Additional Source Comments The information contained in this document represents components of the legal health record. It is not the complete legal health record.[facility]
--- OUTSIDE RECORDS SUMMARY | 2024-11-05 16:40 | XMS_ITS | Encounter Summary ---
Author Organization [facility] Address [address] [facility] [address] [place] [address] Phone Care Team Providers Care Data Collection Associate Name Role Phone Lucian Zendejas MD Primary Care Provider [phone] Ayush Draper MD Unavailable Beto Maravilla MD Unavailable [phone] Jamie Rai DO Unavailable [phone] Guzman Nicolas MD Unavailable Carlos A Enamorado MD Unavailable Kvng Joya MD, PhD Unavailable Hector Albrecht MD Unavailable [phone] Fabiana Tripathi MD Primary Care Provider + Fabiana Tripathi MD Primary Care Provider + Encounter Details Date Type Department Care Team (Late st Contact Info) Description 04/06/2021 Procedure Pass [facility], Ct Scan - [address] [phone] Social History Tobacco Use Types Packs/Day Years [...] 04/06/2021 6:26 PM Susannah Martinez, RN * [place] Suicide Severity Rating Scale (Screener/Recent Self-Report) Question [...] st Contact Info) Description 07/02/2024 Procedure Pass [facility], Ct Scan - [address] [address] 01/21/2025 1:15 PM EST Office Visit [facility] Medicine [address] [place] [address] Fabiana Tripathi MD [address] [facility], [address] [place] [address] [email or web address] 02/02/2025 2:30 PM EST Appointment [facility], Ct Scan - [address] [address] Fabiana Tripathi MD [address] [facility], [address] [place] [address] [email or web address] 04/16/2025 2:30 PM EST Office Visit [facility] Neurology [address] [place] [address] Daniel Bustillo MD [address] [place] [address], [address] [place] [address] [email or web address] documented as of this encounter Visit Diagnoses Not on filedocumented in this encounter Additional Health Concerns Infection Onset Date Last Indicated Resolved Time CoV-Presumed 01/01/2022 01/01/2022 01/22/2022 1:21 AM EST CoV-Risk 06/15/2023 06/15/2023 06/26/2023 1:22 AM EDT CDiff-Risk 09/24/2024 09/24/2024 09/24/2024 8:48 PM EDT Assessment Noted Time PHQ-2 Depression Total Score: 0 02/25/19 3:30 PM EST documented as of this encounter Care Teams Data Collection Associate Relationship Specialty Start Date End Date Lucian Zendejas MD [address] [place] [address] [email or web address] PCP - General Internal Medicine 01/02/17 Fabiana Tripathi MD [address] [place] [address], [address] [place] [address] [email or web address] PCP - General Family Medicine 07/27/21 08/07/22 Fabiana Tripathi MD [address] [place] [address], [address] [place] [address] [email or web address] PCP - General Family Medicine 08/08/22 Ayush Draper MD [address] [place] [address] [place] [address] Registered Nurse Pulmonary Disease 01/26/20 Beto Maravilla MD [address] [address] Psychiatry 01/26/20 Jamie Rai DO [address] [place] [address] [email or web address] Cardiology 01/26/20 Guzman Nicolas MD [address] [place] [address] Ophthalmology 01/26/20 Carlos A Enamorado MD [address] [place] [address], [address] [place] [address] Urology 01/26/20 Kvng Joya MD, PhD [address] [place] [address], [address] [address] Dermatology 01/26/20 Hector Albrecht MD [address] [place] [address], [address] [address] [email or web address] Otolaryngology 01/26/20 documented as of this encounter Additional Source Comments The information contained in this document represents components of the legal health record. It is not the complete legal health record.[facility]
--- OUTSIDE RECORDS SUMMARY | 2024-11-05 16:40 | XMS_ITS | Encounter Summary ---
Author Organization [facility] Address [address] [facility] [address] [place] [address] Phone Care Team Providers Care Director Quality Assurance Name Role Phone Ayush Draper MD Unavailable Beto Maravilla MD Unavailable [phone] Jamie Rai DO Unavailable [phone] Guzman Nicolas MD Unavailable [phone] Carlos A Enamorado MD Unavailable Kvng Joya MD, PhD Unavailable Hector Albrecht MD Unavailable +[phone] Fabiana Tripathi MD Primary Care Provider + Encounter Details Date Type Department Care Team (Late st Contact Info) Description 09/27/2024 Procedure Pass [facility], Ct Scan - [address] [address] Social History Tobacco Use Types Packs/Day Years [...] study, or receive health care? No 07/27/2020 Education Answer Date Recorded Are you interested in more education? Not on renaldo e 06/08/2022 Are you concerned about learning? Not on file 06/08/2022 No 06/08/2022 No 06/08/2022 Food Answer Date Recorded Within the past 6 months we worried whether our food would run out before we got money to buy more. Never True 09/27/2024 Within the past 6 months the food we bought just didn't last and we didn't have enough money to get more. Never True Residential Stability Answer Date Recor ded What is your housing situation today? I have ana sing 09/27/2024 How many times have you move d in the past 12 months? Zero (I did not move) 09/27/2024 Paying for Meds Answer Date Recorded Do you have trouble paying for medicines? No 09/27/2024 Paying Utility Bills Answer Date Record ed Do you have trouble paying your heating or elect ricity bill? No 09/27/2024 Transportation Answer Date Recorded Has the lack of transportati on kept you from medical appointments or from getting medications? No 09/27/2024 Unemployment Answer Date Recorded Are you currently unemployed or working on a part-time or temporary basis, and looking for work? No 07/27/2020 Digital Access Answer Date Recorded No 09/27/2024 Yes 09/27/2024 Do you have reliable internet access at home? Ye s 09/27/2024 Do you have a device (e.g., phone, tablet, computer) with a working camera? Yes 09/27/2024 Intimate Partner Violence Answer Date R ecorded Are you denied basic needs s uch as food, clothing, or medical care? No 09/27/2024 In the past 12 months have y ou been in a relationship with a person who hurts, threatens, or tries to control you? No 09/27/2024 Are you denied basic needs s uch as food, clothing, or medical care? No 09/27/2024 In the past 12 months have y ou been in a relationship with a person who hurts, threatens, or tries to control you? No 09/27/2024 Sex and Gender Information Value Date Recorded Sex Assigned at Male 04/06/2021 6:27 PM EST Legal Sex Male 10:04 PM EDT Gender Identity Male 04/06/2021 6:27 PM EST Sexual Orientation Straight 10/26/2022 6: 52 PM EDT documented as of this encounter Functional Status * Calculated C-SSRS Risk Score (Lifetime/Recent) Answer Date of Assessment Author No Risk Indicated 09/27/2024 4:29 AM EDT Jennifer Gutierres RN * [place] Suicide Severity Rating Scale (Screener/Recent Self-Report) Question Answer Date of Assessment Author 1. Wish to be (Past 1 Month) No 09/27/2024 4:29 AM EDT Devora Rooney RN 2. Non-Specific Active Suicidal Thoughts (Past 1 Month) No 09/27/2024 4:29 AM EDT Devora Rooney RN 6. Suicidal Behavior (Lifetime) No 09/27/2024 4:29 AM EDT Devora Rooney RN documented as of this encounter Plan of Treatment Upcoming Encounters Date Type Department Care Team (Late st Contact Info) Description 07/02/2024 Procedure Pass [address] [address] 01/21/2025 1:15 PM EST Office Visit [address] [address] Fabiana Tripathi MD [address] [place] [address] angel 02/02/2025 2:30 PM EST Appointment [address] [address] Fabiana Tripathi MD [address] [place] [address] 7 [place] [address] angel 04/16/2025 2:30 PM EST Office Visit [facility] Neurology [address] [place] [address] Daniel Bustillo MD [address] [place] [address], [address] [place] [address] [email or web address] documented as of this encounter Visit Diagnoses Not on filedocumented in this encounter Additional Health Concerns Assessment Noted Time PHQ-2 Depression Total Score: 0 01/21/20 24 3:11 PM EST documented as of this encounter Care Teams Director Quality Assurance Relationship Specialty Start Date End Date Fabiana Tripathi MD [address] [place] [address], [address] [place] [address] [email or web address] PCP - General Family Medicine 08/08/22 Ayush Draper MD [address] [place] [address] [place] [address] Registered Nurse Pulmonary Disease 01/26/20 Beto Maravilla MD [address] [address] Psychiatry 01/26/20 Jamie Rai DO [address] [address] [email or web address] Cardiology 01/26/20 Guzman Nicolas MD [address] [place] [address] Ophthalmology 01/26/20 Carlos A Enamorado MD [address] [place] [address], [address] [address] [email or web address] Urology 01/26/20 Kvng Joya MD, PhD [address] [place] [address], [address] [address] Dermatology 01/26/20 Hector Albrecht MD [address] [place] [address], [address] [address] [email or web address] Otolaryngology 01/26/20 documented as of this encounter Additional Source Comments The information contained in this document represents components of the legal health record. It is not the complete legal health record.[facility]
--- OUTSIDE RECORDS SUMMARY | 2024-11-05 16:40 | XMS_ITS | Encounter Summary ---
Author Organization [facility] Address [address] [facility] [address] [place] [address] Phone Care Team Providers Care Aerospace Project Engineer Name Role Phone Ayush Draper MD Unavailable Beto Maravilla MD Unavailable [phone] Jamie Rai DO Unavailable [phone] Guzman Nicolas MD Unavailable [phone] Carlos A Enamorado MD Unavailable Kvng Joya MD, PhD Unavailable Hector Albrecht MD Unavailable [phone] Fabiana Tripathi MD Primary Care Provider + Encounter Details Date Type Department Care Team (Late st Contact Info) Description 03/06/2024 Procedure Pass [facility], [address] [address] Social History Tobacco Use Types Packs/Day Years [...] 06/08/2022 No 06/08/2022 Food Answer Date Recorded Worried food would [...] 07/27/2020 Digital Access Answer Date Recorded No 07/10/2022 No 07/10/2022 Reliable internet access at home? Not on file 07/10/2022 Device with a working camera? Not on file Intimate Partner Violence Answer Date R ecorded Are you denied basic needs s uch as food, clothing, or medical care? No 02/17/2024 In the past 12 months have y ou been in a relationship with a person who hurts, threatens, or tries to control you? No 02/17/2024 Are you denied basic needs s uch as food, clothing, or medical care? No 02/17/2024 In the past 12 months have y ou been in a relationship with a person who hurts, threatens, or tries to control you? No 02/17/2024 Sex and Gender Information Value Date Recorded Sex Assigned at Male 04/06/2021 6:27 PM EST Legal Sex Male 10:04 PM EDT Gender Identity Male 04/06/2021 6:27 PM EST Sexual Orientation Straight 10/26/2022 6: 52 PM EDT documented as of this encounter Plan of Treatment Upcoming Encounters Date Type Department Care Team (Late st Contact Info) Description 07/02/2024 Procedure Pass [facility], [facility] [address] [place] [address] 01/21/2025 1:15 PM EST Office Visit [address] [address] Fabiana Tripathi MD [address] [facility], [facility] 7 [place] [address] angel 02/02/2025 2:30 PM EST Appointment [facility] [address] [place] [address] Fabiana Tripathi MD [address] [place] [address] 7 [place] [address] angel 04/16/2025 2:30 PM EST Office Visit [facility] Neurology [address] [place] [address] Daniel Bustillo MD [address] [facility], 2nd [place] [address] [email or web address] documented as of this encounter Visit Diagnoses Not on filedocumented in this encounter Additional Health Concerns Infection Onset Date Last Indicated Resolved Time CDiff-Risk 09/24/2024 09/24/2024 09/24/2024 8:48 PM EDT Assessment Noted Time PHQ-2 Depression Total Score: 0 01/21/20 24 3:11 PM EST documented as of this encounter Care Teams Aerospace Project Engineer Relationship Specialty Start Date End Date Fabiana Tripathi MD [address] [facility], [facility] 7 [place] [address] angel PCP - General Family Medicine 08/08/22 Ayush Draper MD [address] [place] [address] [place] [address] Registered Nurse Pulmonary Disease 01/26/20 Beto Maravilla MD [address] [address] Psychiatry 01/26/20 Jamie Rai DO [address] [address] [email or web address] Cardiology 01/26/20 Guzman Nicolas MD [address] [place] [address] Ophthalmology 01/26/20 Carlos A Enamorado MD [address] [place] [address], [address] [address] [email or web address] Urology 01/26/20 Kvng Joya MD, PhD [address] [place] [address], [address] [address] Dermatology 01/26/20 Hector Albrecht MD [address] [place] [address], [address] [address] [email or web address] Otolaryngology 01/26/20 documented as of this encounter Additional Source Comments The information contained in this document represents components of the legal health record. It is not the complete legal health record.[facility]
--- OUTSIDE RECORDS SUMMARY | 2024-11-05 16:40 | XMS_ITS | Encounter Summary ---
Author Organization [facility] Address [address] [facility] [address] [place] [address] Phone Care Team Providers Care County Library Director Name Role Phone Ayush Draper MD Unavailable [phone] Beto Mraavilla MD Unavailable [phone] Jamie Rai DO Unavailable [phone] Guzman Nicolas MD Unavailable [phone] Carlos A Enamorado MD Unavailable Kvng Joya MD, PhD Unavailable [phone] Hector Albrecht MD Unavailable [phone] Fabiana Tripathi MD Primary Care Provider + Encounter Details Date Type Department Care Team (Late st Contact Info) Description 03/06/2024 Procedure Pass [facility], [address] [address] Social History Tobacco Use Types Packs/Day Years [...] st Contact Info) Description 07/02/2024 Procedure Pass [facility], [facility] 30 [place] [address] 01/21/2025 1:15 PM EST Office Visit [address] [address] Fabiana Tripathi MD 234 [facility], [facility] 7 [place] [address] angel 02/02/2025 2:30 PM EST Appointment [facility] 30 [place] [address] Fabiana Tripathi MD [address] [place] [address] 7 [place] [address] angel 04/16/2025 2:30 PM EST Office Visit [facility] Neurology [address] [place] [address] Daniel Bustillo MD 22 [facility], 2nd [place] [address] [email or web address] documented as of this encounter Visit Diagnoses Not on filedocumented in this encounter Additional Health Concerns Infection Onset Date Last Indicated Resolved Time CDiff-Risk 09/24/2024 09/24/2024 09/24/2024 8:48 PM EDT Assessment Noted Time PHQ-2 Depression Total Score: 0 01/21/20 24 3:11 PM EST documented as of this encounter Care Teams County Library Director Relationship Specialty Start Date End Date Fabiana Tripathi MD 234 [facility], [facility] 7 [place] [address] angel PCP - General Family Medicine 08/08/22 Ayush Draper MD [address] [place] [address] [place] [address] Registered Nurse Pulmonary Disease 01/26/20 Beto Maravilla MD [address] [address] Psychiatry 01/26/20 Jamie Rai DO [address] [address] [email or web address] Cardiology 01/26/20 Guzman Nicolas MD [address] [place] [address] Ophthalmology 01/26/20 Carlos A Enamorado MD [address] [place] [address], [address] [address] [email or web address] Urology 01/26/20 Kvng Joya MD, PhD [address] [place] [address], [address] [address] Dermatology 01/26/20 Hector Albrecht MD [address] [place] [address], [address] [address] [email or web address] Otolaryngology 01/26/20 documented as of this encounter Additional Source Comments The information contained in this document represents components of the legal health record. It is not the complete legal health record.[facility]
--- OUTSIDE RECORDS SUMMARY | 2024-11-05 16:40 | XMS_ITS | Encounter Summary ---
Author Organization [facility] Address [address] [facility] [address] [place] [address] Phone Care Team Providers Care Rn Cardiovascular Icu Name Role Phone Ayush Draper MD Unavailable Beto Maravilla MD Unavailable [phone] Jamie Rai DO Unavailable [phone] Guzman Nicolas MD Unavailable [phone] Carlos A Enamorado MD Unavailable Kvng Joya MD, PhD Unavailable Hector Albrecht MD Unavailable [phone] Fabiana Tripathi MD Primary Care Provider + Encounter Details Date Type Department Care Team (Late st Contact Info) Description 03/11/2024 Transcribe Orders Virtual Department 30 [place] [address] Denia Paige PA 6 [place] [address] [email or web address] Social History Tobacco Use Types Packs/Day Years [...] st Contact Info) Description 07/02/2024 Procedure Pass [address] [address] 01/21/2025 1:15 PM EST Office Visit [facility] Medicine [address] [place] [address] Fabiana Tripathi MD [address] [place] [address] 7 [place] [address] angel 02/02/2025 2:30 PM EST Appointment [address] [address] Fabiana Tripathi MD [address] [place] [address] angel 04/16/2025 2:30 PM EST Office Visit [facility] Neurology [address] [place] [address] Daniel Bustillo MD [address] [place] [address], [address] [place] [address] documented as of this encounter Visit Diagnoses Not on filedocumented in this encounter Additional Health Concerns Infection Onset Date Last Indicated Resolved Time CDiff-Risk 09/24/2024 09/24/2024 09/24/2024 8:48 PM EDT Assessment Noted Time PHQ-2 Depression Total Score: 0 01/21/20 24 3:11 PM EST documented as of this encounter Care Teams Rn Cardiovascular Icu Relationship Specialty Start Date End Date Fabiana Tripathi MD [address] [place] [address] 7 [place] [address] angel PCP - General Family Medicine 08/08/22 Ayush Draper MD [address] [place] [address] [place] [address] Registered Nurse Pulmonary Disease 01/26/20 Beto Maravilla MD [address] [address] Psychiatry 01/26/20 Jamie Rai DO [address] [address] [email or web address] Cardiology 01/26/20 Guzman Nicolas MD [address] [place] [address] Ophthalmology 01/26/20 Carlos A Enamorado MD [address] [place] [address] [email or web address] Urology 01/26/20 Kvng Joya MD, PhD [address] [place] [address] Dermatology 01/26/20 Hector Alrbecht MD [address] [place] [address] [email or web address] Otolaryngology 01/26/20 documented as of this encounter Additional Source Comments The information contained in this document represents components of the legal health record. It is not the complete legal health record.[facility]
--- OUTSIDE RECORDS SUMMARY | 2024-11-05 16:40 | XMS_ITS | Encounter Summary ---
Author Organization [facility] Address [address] [place] [address] [place] [address] Phone Care Team Providers Care Puncher And Fastener Name Role Phone Ayush Draper MD Unavailable Beto Maravilla MD Unavailable [phone] Jamie Rai DO Unavailable [phone] Guzman Nicolas MD Unavailable [phone] Carlos A Enamorado MD Unavailable Kvng Joya MD, PhD Unavailable Hector Albrecht MD Unavailable [phone] Fabiana Tripathi MD Primary Care Provider + Reason for Referral * MRI/CAT Scan - Closed Specialty Diagnoses / Procedures Referred By Sara desai Referred To Contact Radiology Diagnoses Closed wedge fracture of thoracic vertebra, unspecified thoracic vertebral level, initial encounter Procedures MRI Thoracic Spine CHG MRI, DORSAL SPINE Denia Paige PA [address] [place] [address] Phone: tel: fax: mailto:[email or web address] Referral ID Status Reason Start Date Expiration Date Visits Re quested Visits Authorized [id number] Closed 03/10/2024 05/09/2024 1 1 * MRI/CAT Scan - Closed Specialty Diagnoses / Procedures Referred By Contac t Referred To Contact Radiology Diagnoses Closed wedge fracture of lumbar vertebra, unspecified lumbar vertebral level, initial encounter Procedures MRI Lumbar Spine CHG MRI, LUMBAR SPINE Denia Paige PA [address] [place] [address] Phone: tel: fax: [email or web address] Referral ID Status Reason Start Date Expiration Date Visits Re quested Visits Authorized [id number] Closed 03/10/2024 05/09/2024 1 1 Encounter Details Date Type Department Care Team (Latest Contact Info) Description 03/06/2024 Transcribe Orders Virtual Department [address] [place] [address] Denia Paige PA [address] [place] [phone] [email or web address] Closed wedge fracture of lumbar vertebra, unspecified lumbar vertebral level, initial encounter (Primary Dx); Closed wedge fracture of thoracic vertebra, unspecified thoracic vertebral level, initial encounter Social History Tobacco Use Types Packs/Day Years Used Date Smoking Tobacco: Former Cigarettes 0.3 3 1 965 - 1967 Smokeless Tobacco: Never Alcohol Use Standard Drinks/Week [...] st Contact Info) Description 07/02/2024 Procedure Pass [facility], Ct Scan - [facility] [address] [place] [address] 01/21/2025 1:15 PM EST Office Visit [facility] [address] [place] [address] Fabiana Tripathi MD [address] [facility], [address] [place] [address] [email or web address] 02/02/2025 2:30 PM EST Appointment [facility], Ct Scan - [facility] [address] [place] [address] Fabiana Tripathi MD [address] [place] [address], [address] [place] [address] [email or web address] 04/16/2025 2:30 PM EST Office Visit [facility] Neurology [address] [place] [address] Daniel Bustillo MD 22 [facility], 2nd [place] [address] [email or web address] documented as of this encounter Results * MRI LUMBAR SPINE (NEURO) WITHOUT CONTRAST (03/24/2024 10:26 PM EST) Anatomical Region Laterality Modality L-spine Magnetic Resonan ce 03/25/2024 2:06 PM EST Impressions 03/25/2024 2:17 PM EST 1. Acute to subacute compression fracture at L1, with 25-50% loss of anterior vertebral body height and mild retropulsion. 2. Moderate multilevel lumbar spondylosis, notable for moderate bilateral foraminal narrowing at L4-5 and L5-S1. Narrative 03/25/2024 2:17 PM EST MRI THORACIC SPINE (NEURO) WITHOUT CONTRAST, MRI LUMBAR SPINE (NEURO) WITHOUT CONTRAST Referring clinician's provided indication for this examination in Epic: Outside Radiology Order; Wedge compression fracture of unsp thoracic vertebrae,init TECHNIQUE: MRI THORACIC SPINE (NEURO) WITHOUT CONTRAST, MRI LUMBAR SPINE (NEURO) WITHOUT CONTRAST Multi-sequence, multi-planar MRI of the thoracic spine was performed without intravenous contrast. Multi-sequence, multi-planar MRI of the lumbar spine was performed without intravenous contrast. COMPARISON: None. FINDINGS: THORACIC SPINE: Alignment and Vertebrae: Normal alignment. No compression fracture. Marrow: No bone marrow replacing lesion. Discs and Endplates: Multilevel mild disc height loss, with endplate osteophytosis. There is no high-grade spinal canal or foraminal narrowing. Spinal Cord: Normal. No spinal cord compression or signal abnormality. Soft Tissue: Multinodular right thyroid gland, seen on prior studies. Other Findings: None. LUMBAR SPINE: Alignment and Vertebrae: There is anterior compression deformity at L1, with a fracture plane through the superior endplate and 25-50% loss of anterior vertebral body height loss. There is mild retropulsion. There is increased STIR signal and increased T1 signal throughout the vertebral body. Marrow: No bone marrow replacing lesion. Discs and Endplates: Normal intervertebral disc heights and signal. Conus: Normal. Soft Tissues: Normal. No prevertebral edema. Other Findings: None. Findings by level: T12-L1: No significant spinal canal or foraminal narrowing. L1-L2: Mild diffuse disc bulge and mild bilateral facet arthropathy, without significant canal or foraminal narrowing. L2-L3: Mild bilateral facet arthropathy, without significant canal or foraminal narrowing. L3-L4: Mild diffuse disc bulge and mild bilateral facet arthropathy, resulting in mild bilateral foraminal narrowing. There is also mild encroachment of the left subarticular zone without evidence of left L4 nerve root impingement. L4-L5: Diffuse disc bulge and moderate bilateral facet arthropathy and ligamentum flavum flavum. There is encroachment of bilateral subarticular zones with possible impingement of the left L5 nerve root. There is moderate bilateral foraminal narrowing. L5-S1: Diffuse disc bulge with severe bilateral facet arthropathy and ligamentum flavum infolding. There is moderate bilateral foraminal narrowing. Procedure Note Jan Leong MD - 03/25/2024 MRI THORACIC SPINE (NEURO) WITHOUT CONTRAST, MRI LUMBAR SPINE (NEURO)WITHOUT CONTRAST Referring clinician's provided indication for this examination in Epic:Outside Radiology Order; Wedge compression fracture of unsp thoracicvertebrae,init TECHNIQUE: MRI THORACIC SPINE (NEURO) WITHOUT CONTRAST, MRI LUMBAR SPINE(NEURO) WITHOUT CONTRAST Multi-sequence, multi-planar MRI of the thoracic spine was performedwithout intravenous contrast. Multi-sequence, multi-planar MRI of the lumbar spine was performed withoutintravenous contrast. COMPARISON: None. FINDINGS: THORACIC SPINE: Alignment and Vertebrae: Normal alignment. No compression fracture. Marrow: No bone marrow replacing lesion. Discs and Endplates: Multilevel mild disc height loss, with endplateosteophytosis. There is no high-grade spinal canal or foraminalnarrowing. Spinal Cord: Normal. No spinal cord compression or signal abnormality. Soft Tissue: Multinodular right thyroid gland, seen on prior studies. Other Findings: None. LUMBAR SPINE: Alignment and Vertebrae: There is anterior compression deformity at L1,with a fracture plane through the superior endplate and 25-50% loss ofanterior vertebral body height loss. There is mild retropulsion. There isincreased STIR signal and increased T1 signal throughout the vertebralbody. Marrow: No bone marrow replacing lesion. Discs and Endplates: Normal intervertebral disc heights and signal. Conus: Normal. Soft Tissues: Normal. No prevertebral edema. Other Findings: None. Findings by level: T12-L1: No significant spinal canal or foraminal narrowing. L1-L2: Mild diffuse disc bulge and mild bilateral facet arthropathy,without significant canal or foraminal narrowing. L2-L3: Mild bilateral facet arthropathy, without significant canal orforaminal narrowing. L3-L4: Mild diffuse disc bulge and mild bilateral facet arthropathy,resulting in mild bilateral foraminal narrowing. There is also mildencroachment of the left subarticular zone without evidence of left A4cgzwq root impingement. L4-L5: Diffuse disc bulge and moderate bilateral facet arthropathy andligamentum flavum flavum. There is encroachment of bilateral subarticularzones with possible impingement of the left L5 nerve root. There ismoderate bilateral foraminal narrowing. L5-S1: Diffuse disc bulge with severe bilateral facet arthropathy andligamentum flavum infolding. There is moderate bilateral foraminalnarrowing. IMPRESSION: 1. Acute to subacute compression fracture at L1, with 25-50% loss ofanterior vertebral body height and mild retropulsion. 2. Moderate multilevel lumbar spondylosis, notable for moderate bilateralforaminal narrowing at L4-5 and L5-S1. Denia HALE IMG MR XSPECIALTY Final Resul t * MRI THORACIC SPINE (NEURO) WITHOUT CONTRAST (03/24/2024 10:03 PM EST) Anatomical Region Laterality Modality T-spine Magnetic Resonan ce 03/25/2024 2:06 PM EST Impressions 03/25/2024 2:17 PM EST 1. Acute to subacute compression fracture at L1, with 25-50% loss of anterior vertebral body height and mild retropulsion. 2. Moderate multilevel lumbar spondylosis, notable for moderate bilateral foraminal narrowing at L4-5 and L5-S1. Narrative 03/25/2024 2:17 PM EST MRI THORACIC SPINE (NEURO) WITHOUT CONTRAST, MRI LUMBAR SPINE (NEURO) WITHOUT CONTRAST Referring clinician's provided indication for this examination in Epic: Outside Radiology Order; Wedge compression fracture of unsp thoracic vertebrae,init TECHNIQUE: MRI THORACIC SPINE (NEURO) WITHOUT CONTRAST, MRI LUMBAR SPINE (NEURO) WITHOUT CONTRAST Multi-sequence, multi-planar MRI of the thoracic spine was performed without intravenous contrast. Multi-sequence, multi-planar MRI of the lumbar spine was performed without intravenous contrast. COMPARISON: None. FINDINGS: THORACIC SPINE: Alignment and Vertebrae: Normal alignment. No compression fracture. Marrow: No bone marrow replacing lesion. Discs and Endplates: Multilevel mild disc height loss, with endplate osteophytosis. There is no high-grade spinal canal or foraminal narrowing. Spinal Cord: Normal. No spinal cord compression or signal abnormality. Soft Tissue: Multinodular right thyroid gland, seen on prior studies. Other Findings: None. LUMBAR SPINE: Alignment and Vertebrae: There is anterior compression deformity at L1, with a fracture plane through the superior endplate and 25-50% loss of anterior vertebral body height loss. There is mild retropulsion. There is increased STIR signal and increased T1 signal throughout the vertebral body. Marrow: No bone marrow replacing lesion. Discs and Endplates: Normal intervertebral disc heights and signal. Conus: Normal. Soft Tissues: Normal. No prevertebral edema. Other Findings: None. Findings by level: T12-L1: No significant spinal canal or foraminal narrowing. L1-L2: Mild diffuse disc bulge and mild bilateral facet arthropathy, without significant canal or foraminal narrowing. L2-L3: Mild bilateral facet arthropathy, without significant canal or foraminal narrowing. L3-L4: Mild diffuse disc bulge and mild bilateral facet arthropathy, resulting in mild bilateral foraminal narrowing. There is also mild encroachment of the left subarticular zone without evidence of left L4 nerve root impingement. L4-L5: Diffuse disc bulge and moderate bilateral facet arthropathy and ligamentum flavum flavum. There is encroachment of bilateral subarticular zones with possible impingement of the left L5 nerve root. There is moderate bilateral foraminal narrowing. L5-S1: Diffuse disc bulge with severe bilateral facet arthropathy and ligamentum flavum infolding. There is moderate bilateral foraminal narrowing. Procedure Note Jan Leong MD - 03/25/2024 MRI THORACIC SPINE (NEURO) WITHOUT CONTRAST, MRI LUMBAR SPINE (NEURO)WITHOUT CONTRAST Referring clinician's provided indication for this examination in Epic:Outside Radiology Order; Wedge compression fracture of unsp thoracicvertebrae,init TECHNIQUE: MRI THORACIC SPINE (NEURO) WITHOUT CONTRAST, MRI LUMBAR SPINE(NEURO) WITHOUT CONTRAST Multi-sequence, multi-planar MRI of the thoracic spine was performedwithout intravenous contrast. Multi-sequence, multi-planar MRI of the lumbar spine was performed withoutintravenous contrast. COMPARISON: None. FINDINGS: THORACIC SPINE: Alignment and Vertebrae: Normal alignment. No compression fracture. Marrow: No bone marrow replacing lesion. Discs and Endplates: Multilevel mild disc height loss, with endplateosteophytosis. There is no high-grade spinal canal or foraminalnarrowing. Spinal Cord: Normal. No spinal cord compression or signal abnormality. Soft Tissue: Multinodular right thyroid gland, seen on prior studies. Other Findings: None. LUMBAR SPINE: Alignment and Vertebrae: There is anterior compression deformity at L1,with a fracture plane through the superior endplate and 25-50% loss ofanterior vertebral body height loss. There is mild retropulsion. There isincreased STIR signal and increased T1 signal throughout the vertebralbody. Marrow: No bone marrow replacing lesion. Discs and Endplates: Normal intervertebral disc heights and signal. Conus: Normal. Soft Tissues: Normal. No prevertebral edema. Other Findings: None. Findings by level: T12-L1: No significant spinal canal or foraminal narrowing. L1-L2: Mild diffuse disc bulge and mild bilateral facet arthropathy,without significant canal or foraminal narrowing. L2-L3: Mild bilateral facet arthropathy, without significant canal orforaminal narrowing. L3-L4: Mild diffuse disc bulge and mild bilateral facet arthropathy,resulting in mild bilateral foraminal narrowing. There is also mildencroachment of the left subarticular zone without evidence of left V2zzrxq root impingement. L4-L5: Diffuse disc bulge and moderate bilateral facet arthropathy andligamentum flavum flavum. There is encroachment of bilateral subarticularzones with possible impingement of the left L5 nerve root. There ismoderate bilateral foraminal narrowing. L5-S1: Diffuse disc bulge with severe bilateral facet arthropathy andligamentum flavum infolding. There is moderate bilateral foraminalnarrowing. IMPRESSION: 1. Acute to subacute compression fracture at L1, with 25-50% loss ofanterior vertebral body height and mild retropulsion. 2. Moderate multilevel lumbar spondylosis, notable for moderate bilateralforaminal narrowing at L4-5 and L5-S1. Denia HALE IMG MR XSPECIALTY Final Resul t documented in this encounter Visit Diagnoses Diagnosis Closed wedge fracture of lumbar vertebra, unspecified lumbar vertebral level, initial encounter- Primary Closed wedge fracture of thoracic vertebra, unspecified thoracic vertebral level, initial encounter Closed wedge fracture of lumbar vertebra, unspecified lumbar vertebral level, initial encounter Closed wedge fracture of thoracic vertebra, unspecified thoracic vertebral level, initial encounter documented in this encounter Additional Health Concerns Infection Onset Date Last Indicated Resolved Time CDiff-Risk 09/24/2024 09/24/2024 09/24/2024 8:48 PM EDT Assessment Noted Time PHQ-2 Depression Total Score: 0 01/21/20 24 3:11 PM EST documented as of this encounter Care Teams Puncher And Fastener Relationship Specialty Start Date End Date Fabiana Tripathi MD [address] [place] [address], [address] [place] [address] PCP - General Family Medicine 08/08/22 Ayush Draper MD [address] [place] [address] [place] [address] Registered Nurse Pulmonary Disease 01/26/20 Beto Maravilla MD [address] [address] Psychiatry 01/26/20 Jamie Rai DO [address] [address] [email or web address] Cardiology 01/26/20 Guzman Nicolas MD [address] [place] [address] Ophthalmology 01/26/20 Carlos A Enamorado MD [address] [place] [address], [address] [place] [address] [email or web address] Urology 01/26/20 Kvng Joya MD, PhD [address] [place] [address], [address] [place] [address] Dermatology 01/26/20 Hector Albrecht MD [address] [place] [address], [address] [place] [address] [email or web address] Otolaryngology 01/26/20 documented as of this encounter Additional Source Comments The information contained in this document represents components of the legal health record. It is not the complete legal health record.[facility]
--- OUTSIDE RECORDS SUMMARY | 2024-11-05 16:40 | XMS_ITS | Encounter Summary ---
Author Organization [facility] Address [address] [place] [address] Phone Care Team Providers Care Court Interpreter Name Role Phone Ayush Draper MD Unavailable Beto Maravilla MD Unavailable [phone] Jamie Rai DO Unavailable [phone] Guzman Nicolas MD Unavailable [phone] Carlos A Enamorado MD Unavailable Kvng Joya MD, PhD Unavailable [phone] Hector Albrecht MD Unavailable [phone] Fabiana Tripathi MD Primary Care Provider + Encounter Details Date Type Department Care Team (Late st Contact Info) Description 09/27/2024 Procedure Pass [facility], [address] [address] Social History Tobacco Use Types Packs/Day Years [...] 4:29 AM EDT Jennifer Gutierres RN * [place] Suicide Severity Rating Scale (Screener/Recent Self-Report) Question [...] st Contact Info) Description 07/02/2024 Procedure Pass [address] [place] [address] [address] 01/21/2025 1:15 PM EST Office Visit [address] [address] Fabiana Tripathi MD [address] [place] [address] angel 02/02/2025 2:30 PM EST Appointment [address] [place] [address] [address] Fabiana Tripathi MD [address] [place] [address] [address] [place] [address] angel 04/16/2025 2:30 PM EST Office Visit [facility] Neurology [address] [place] [address] Daniel Bustillo MD [address] [place] [address], [address] [place] [address] [email or web address] documented as of this encounter Visit Diagnoses Not on filedocumented in this encounter Additional Health Concerns Assessment Noted Time PHQ-2 Depression Total Score: 0 01/21/20 24 3:11 PM EST documented as of this encounter Care Teams Court Interpreter Relationship Specialty Start Date End Date Fabiana Tripathi MD [address] [place] [address], [address] [place] [address] angel [email or web address] PCP - General Family Medicine 08/08/22 Ayush Draper MD [address] [place] [address] [place] [address] Registered Nurse Pulmonary Disease 01/26/20 Beto Maravilla MD [address] [address] Psychiatry 01/26/20 Jamie Rai DO [address] [place] [address] [email or web address] Cardiology 01/26/20 Guzman Nicolas MD [address] [place] [address] Ophthalmology 01/26/20 Carlos A Enamorado MD [address] [place] [address], [address] [address] [email or web address] Urology 01/26/20 Kvng Joya MD, PhD [address] [place] [address], [address] [address] Dermatology 01/26/20 Hector Albrecht MD [address] [place] [address] [email or web address] Otolaryngology 01/26/20 documented as of this encounter Additional Source Comments The information contained in this document represents components of the legal health record. It is not the complete legal health record.[facility]
--- OUTSIDE RECORDS SUMMARY | 2024-11-05 16:40 | XMS_ITS | Encounter Summary ---
Author Organization [facility] Address [address] [place] [address] [place] [address] Phone Care Team Providers Care Microbial Specialist Name Role Phone Lucian Zendejas MD Primary Care Provider [phone] Lucian Zendejas MD Unavailable [phone] Ayush Darper MD Unavailable Beto Maravilla MD Unavailable [phone] Jamie Rai DO Unavailable [phone] Guzman Nicolas MD Unavailable [phone] Carlos A Enamorado MD Unavailable [facility], PhD Unavailable [phone] Hector Albrecht MD Unavailable [phone] Fabiana Tripathi MD Primary Care Provider + Fabiana Tripathi MD Primary Care Provider + Encounter Details Date Type Department Care Team (Latest Contact Info) Description 01/03/[address] [facility] [address] [place] [address] Carlos A Enamorado MD [facility], [address] [place] [address] [email or web address] Benign prostatic hyperplasia with lower urinary tract symptoms, symptom details unspecified (Primary Dx) Social History Tobacco Use Types [...] st Contact Info) Description 07/02/2024 Procedure Pass [address] [address] 01/21/2025 1:15 PM EST Office Visit [address] [address] Fabiana Tripathi MD [address] [place] [address] angel 02/02/2025 2:30 PM EST Appointment [address] [address] Fabiana Tripathi MD [address] [place] [address] angel 04/16/2025 2:30 PM EST Office Visit [facility] Neurology [address] [place] [address] Daniel Bustillo MD [address] [place] [address], 2[address] [place] [address] documented as of this encounter Results * PSA (screening) (01/03/2017 1:36 PM EST) PSA 2.62 0 - 4.00 ng/mL [facility] Blood 01/03/2017 1:36 PM EST 01/03/2017 1:37 PM EST Carlos A Enamorado MD LAB BLOOD ORDERABLES Final Resul t [facility] [address] [place] [address] documented in this encounter Visit Diagnoses Diagnosis Benign prostatic hyperplasia with lower urinary tract symptoms, symptom details unspecified- Primary documented in this encounter Additional Health Concerns Infection Onset Date Last Indicated Resolved Time CoV-Exposed Comment:Recent close contact 02/05/2020 02/05/2020 02/19/2020 1:23 AM EST CoV-Exposed Comment:Recent close contact documented in the COVID-19 PCR/PRO order 12/31/2020 01/05/2021 01/15/2021 1:[address] CoV-Presumed 01/01/2022 01/01/2022 01/22/2022 1:21 AM EST CoV-Risk 06/15/2023 06/15/2023 06/26/2023 1:22 AM EDT CDiff-Risk 09/24/2024 09/24/2024 09/24/2024 8:48 PM EDT documented as of this encounter Care Teams Microbial Specialist Relationship Specialty Start Date End Date Lucian Zendejas MD [address] [address] [email or web address] PCP - General Internal Medicine 01/02/17 07/26/21 Fabinaa Tripathi MD [address] [place] [address], [address] [address] angel [email or web address] PCP - General Family Medicine 07/27/21 08/07/22 Fabiana Tripathi MD [address] [place] [address], [address] [place] [address] angel PCP - General Family Medicine 08/08/22 Lucian Zendejas MD [address] [address] [email or web address] Insurance Assigned Provider 06/15/18 10/23/20 Ayush Draper MD [address] [place] [address] [place] [address] Registered Nurse Pulmonary Disease 01/26/20 Beto Maravilla MD [address] [address] Psychiatry 01/26/20 Jamie Rai DO [address] [address] [email or web address] Cardiology 01/26/20 Guzman Nicolas MD [address] [place] [address] Ophthalmology 01/26/20 Carlos A Enamorado MD [address] [place] [address] [email or web address] Urology 01/26/20 Kvng Joya MD, PhD [address] [place] [address] Dermatology 01/26/20 Hector Albrecht MD [address] [place] [address] [email or web address] Otolaryngology 01/26/20 documented as of this encounter Additional Source Comments The information contained in this document represents components of the legal health record. It is not the complete legal health record.[facility]
--- OUTSIDE RECORDS SUMMARY | 2024-11-05 16:40 | XMS_ITS | Encounter Summary ---
Author Organization [facility] Address [address] [facility] [address] [place] [address] Phone Care Team Providers Care Emergency Services Director Name Role Phone Ayush Draper MD Unavailable Beto Maravilla MD Unavailable [phone] Jamie Rai DO Unavailable [phone] Guzman Nicolas MD Unavailable [phone] Carlos A Enamorado MD Unavailable Kvng Joya MD, PhD Unavailable Hector Albrecht MD Unavailable [phone] Fabiana Tripathi MD Primary Care Provider + Encounter Details Date Type Department Care Team (Late st Contact Info) Description 09/27/2024 Procedure Pass [facility], [address] [address] Social History Tobacco Use Types Packs/Day Years [...] 4:29 AM EDT Jennifer Gutierres RN * [place] Suicide Severity Rating Scale (Screener/Recent Self-Report) Question [...] Contact Info) Description 07/02/2024 Procedure Pass [address] [address] 01/21/2025 1:15 PM EST Office Visit [address] [address] Fabiana Tripathi MD [address] [place] [address] angel 02/02/2025 2:30 PM EST Appointment [address] [address] Fabiana Tripathi MD [address] [place] [address] 7 [place] [address] angel 04/16/2025 2:30 PM EST Office Visit [facility] Neurology [address] [place] [address] Daniel Bustillo MD [address] [place] [address], [address] [place] [address] [email or web address] documented as of this encounter Visit Diagnoses Not on filedocumented in this encounter Additional Health Concerns Assessment Noted Time PHQ-2 Depression Total Score: 0 01/21/20 24 3:11 PM EST documented as of this encounter Care Teams Emergency Services Director Relationship Specialty Start Date End Date Fabiana Tripathi MD [address] [place] [address], [address] [place] [address] angel [email or web address] PCP - General Family Medicine 08/08/22 Ayush Draper MD [address] [place] [address] [place] [address] Registered Nurse Pulmonary Disease 01/26/20 Beto Maravilla MD [address] [address] Psychiatry 01/26/20 Jamie Rai DO [address] [place] [address] [email or web address] Cardiology 01/26/20 Guzman Nicolas MD [address] [place] [address] Ophthalmology 01/26/20 Carlos A Enamorado MD [address] [place] [address], [address] [address] [email or web address] Urology 01/26/20 Kvng Joya MD, PhD [address] [place] [address], [address] [address] Dermatology 01/26/20 Hector Albrecht MD [address] [place] [address] [email or web address] Otolaryngology 01/26/20 documented as of this encounter Additional Source Comments The information contained in this document represents components of the legal health record. It is not the complete legal health record.[facility]
--- OUTSIDE RECORDS SUMMARY | 2024-11-05 16:40 | XMS_ITS | Encounter Summary ---
Author Organization [facility] Address [address] [facility] [address] [place] [address] Phone Care Team Providers Care Manager Of Community Relations Name Role Phone Ayush Draper MD Unavailable Beto Maravilla MD Unavailable [phone] Jamie Rai DO Unavailable [phone] Guzman Nicolas MD Unavailable [phone] Carlos A Enamorado MD Unavailable Kvng Joya MD, PhD Unavailable Hector Albrecht MD Unavailable [phone] Fabiana Tripathi MD Primary Care Provider + Encounter Details Date Type Department Care Team (Late st Contact Info) Description 01/23/2024 Procedure Pass [facility], Ct Scan - [address] [address] Social History Tobacco Use Types Packs/Day Years [...] as food, clothing, or medical care? No 01/21/2024 In the past 12 months have y ou been in a relationship with a person who hurts, threatens, or tries to control you? No 01/21/2024 Are you denied basic needs s uch as food, clothing, or medical care? No 01/21/2024 In the past 12 months have y ou been in a relationship with a person who hurts, threatens, or tries to control you? No 01/21/2024 Sex and Gender Information Value Date Recorded Sex Assigned at Male 04/06/2021 6:27 PM EST Legal Sex Male 10:04 PM EDT Gender Identity Male 04/06/2021 6:27 PM EST Sexual Orientation Straight 10/26/2022 6: 52 PM EDT documented as of this encounter Plan of Treatment Upcoming Encounters Date Type Department Care Team (Late st Contact Info) Description 07/02/2024 Procedure Pass [facility] 30 [place] [address] 01/21/2025 1:15 PM EST Office Visit [address] [address] Fabiana Tripathi MD [address] [place] [address] 7 [place] [address] angel 02/02/2025 2:30 PM EST Appointment [facility] [address] [place] [address] Fabiana Tripathi MD [address] [place] [address] angel 04/16/2025 2:30 PM EST Office Visit [facility] Neurology [address] [place] [address] Daniel Bustillo MD [address] [facility], 2nd [place] [address] [email or web address] documented as of this encounter Visit Diagnoses Not on filedocumented in this encounter Additional Health Concerns Infection Onset Date Last Indicated Resolved Time CDiff-Risk 09/24/2024 09/24/2024 09/24/2024 8:48 PM EDT Assessment Noted Time PHQ-2 Depression Total Score: 0 01/21/20 24 3:11 PM EST documented as of this encounter Care Teams Manager Of Community Relations Relationship Specialty Start Date End Date Fabiana Tripathi MD [address] [facility] 7 [place] [address] angel PCP - General Family Medicine 08/08/22 Ayush Draper MD [address] [place] [address] [place] [address] Registered Nurse Pulmonary Disease 01/26/20 Beto Maravilla MD [address] [address] Psychiatry 01/26/20 Jamie Rai DO [address] [address] [email or web address] Cardiology 01/26/20 Guzman Nicolas MD [address] [place] [address] Ophthalmology 01/26/20 Carlos A Enamorado MD [address] [place] [address], [address] [place] [address] [email or web address] Urology 01/26/20 Kvng Joya MD, PhD [address] [place] [address], [address] [address] Dermatology 01/26/20 Hector Albrecht MD [address] [place] [address], [address] [address] [email or web address] Otolaryngology 01/26/20 documented as of this encounter Additional Source Comments The information contained in this document represents components of the legal health record. It is not the complete legal health record.[facility]
--- OUTSIDE RECORDS SUMMARY | 2024-11-05 16:40 | XMS_ITS | Encounter Summary ---
Author Organization [facility] Address [address] [facility] [address] [place] [address] Phone Care Team Providers Care Air Conditioning Coil Assembler Name Role Phone Ayush Draper MD Unavailable Beto Maravilla MD Unavailable [phone] Jamie Rai DO Unavailable [phone] Guzman Nicolas MD Unavailable [phone] Carlos A Enamorado MD Unavailable Kvng Joya MD, PhD Unavailable [phone] Hector Ablrecht MD Unavailable [phone] Fabiana Tripathi MD Primary Care Provider + Encounter Details Date Type Department Care Team (Late st Contact Info) Description 09/27/2024 Procedure Pass [facility], Ct Scan - [address] [address] Social History Tobacco Use Types Packs/Day Years [...] 4:29 AM EDT Jennifer Gutierres RN * [place] Suicide Severity Rating Scale (Screener/Recent Self-Report) Question [...] st Contact Info) Description 07/02/2024 Procedure Pass [address] [address] 01/21/2025 1:15 PM EST Office Visit [address] [address] Fabiana Tripathi MD [address] [place] [address] angel 02/02/2025 2:30 PM EST Appointment [address] [address] Fabiana Tripathi MD [address] [place] [address] 7 [place] [address] angel 04/16/2025 2:30 PM EST Office Visit [facility] Neurology [address] [place] [address] Daniel Bustillo MD [address] [place] [address], 2[address] [place] [address] [email or web address] documented as of this encounter Visit Diagnoses Not on filedocumented in this encounter Additional Health Concerns Assessment Noted Time PHQ-2 Depression Total Score: 0 01/21/20 24 3:11 PM EST documented as of this encounter Care Teams Air Conditioning Coil Assembler Relationship Specialty Start Date End Date Fabiana Tripathi MD [address] [place] [address], [address] [place] [address] angel [email or web address] PCP - General Family Medicine 08/08/22 Ayush Draper MD [address] [place] [address] [place] [address] Registered Nurse Pulmonary Disease 01/26/20 Beto Maravilla MD [address] [address] Psychiatry 01/26/20 Jamie Rai DO [address] [address] [email or web address] Cardiology 01/26/20 Guzman Nicolas MD [address] [place] [address] Ophthalmology 01/26/20 Carlos A Enamorado MD [address] [place] [address], [address] [address] [email or web address] Urology 01/26/20 Kvng Joya MD, PhD [address] [place] [address], [address] [address] Dermatology 01/26/20 Hector Albrecht MD [address] [place] [address], [address] [address] [email or web address] Otolaryngology 01/26/20 documented as of this encounter Additional Source Comments The information contained in this document represents components of the legal health record. It is not the complete legal health record.[facility]
--- OUTSIDE RECORDS SUMMARY | 2024-11-05 16:40 | XMS_ITS | Encounter Summary ---
Author Organization [facility] Address [address] [facility] [address] [place] [address] Phone Care Team Providers Care Customer Operations Representative Name Role Phone Ayush Draper MD Unavailable [phone] Beto Maravilla MD Unavailable [phone] Jamie Rai DO Unavailable [phone] Guzman Nicolas MD Unavailable [phone] Carlos A Enamorado MD Unavailable Kvng Joya MD, PhD Unavailable [phone] Hector Albrecht MD Unavailable [phone] Fabiana Tripathi MD Primary Care Provider + Encounter Details Date Type Department Care Team (Late st Contact Info) Description 09/27/2024 Procedure Pass [facility], Ct Scan - [address] [address] Social History Tobacco Use Types Packs/Day Years [...] 4:29 AM EDT Jennifer Gutierres RN * [place] Suicide Severity Rating Scale (Screener/Recent Self-Report) Question [...] st Contact Info) Description 07/02/2024 Procedure Pass [address] [address] 01/21/2025 1:15 PM EST Office Visit [address] [address] Fabiana Tripathi MD [address] [place] [address] angel 02/02/2025 2:30 PM EST Appointment [address] [address] Fabiana Tripathi MD [address] [place] [address] 7 [place] [address] angel 04/16/2025 2:30 PM EST Office Visit [facility] Neurology [address] [place] [address] Daniel Bustillo MD [address] [place] [address], [address] [place] [address] [email or web address] documented as of this encounter Visit Diagnoses Not on filedocumented in this encounter Additional Health Concerns Assessment Noted Time PHQ-2 Depression Total Score: 0 01/21/20 24 3:11 PM EST documented as of this encounter Care Teams Customer Operations Representative Relationship Specialty Start Date End Date Fabiana Tripathi MD [address] [place] [address], [address] [place] [address] angel [email or web address] PCP - General Family Medicine 08/08/22 Ayush Draper MD [address] [place] [address] [place] [address] Registered Nurse Pulmonary Disease 01/26/20 Beto Maravilla MD [address] [address] Psychiatry 01/26/20 Jamie Rai DO [address] [address] [email or web address] Cardiology 01/26/20 Guzman Nicolas MD [address] [place] [address] Ophthalmology 01/26/20 Carlos A Enamorado MD [address] [place] [address], [address] [address] [email or web address] Urology 01/26/20 Kvng Joya MD, PhD [address] [place] [address], [address] [address] Dermatology 01/26/20 Hector Albrecht MD [address] [place] [address], [address] [address] [email or web address] Otolaryngology 01/26/20 documented as of this encounter Additional Source Comments The information contained in this document represents components of the legal health record. It is not the complete legal health record.[facility]
--- OUTSIDE RECORDS SUMMARY | 2024-11-05 16:41 | XMS_ITS | Clinical Summary ---
Author Organization Formerly [facility] Address [address] [place] [address] [place] [address] Phone Care Team Providers Care Senior Quality Assurance Specialist Name Role Phone Ayush Draper MD Unavailable Beto Maravilla MD Unavailable [phone] Jamie Rai DO Unavailable Guzman Nicolas MD Unavailable Carlos A Enamorado MD Unavailable Kvng Joya MD, PhD Unavailable Hector Albrecht MD Unavailable Fabiana Tripathi MD Primary Care Provider + Allergies Active Allergy Reactions Criticality Noted Date Comments Doxycycline GI Upset 09/25/2024 House Dust 07/27/2020 Cough Other 03/09/2022 Dampness Other Reaction(s): Unknown Pollen Extracts Unknown 02/10/2019 Medications ALBUTEROL INHL 2 puffs qid prn Active tamsulosin (FLOMAX) 0.4 mg Cap two capsules at bedtime Active MULTIVIT-MINERALS/MARTIN US FUM (MULTI VITAMIN ORAL) Active b complex vitamins (VITAMINS B COMPLEX) tablet Take 1 tablet by mouth daily. Active sodium chloride (OCEAN) 0.65 % nasal spray 1 spray by Nasal route as needed. Active polycarbophil (FIBERCON) 625 mg tablet 1 tablet as needed Active PEG 400-propylene glycol, PF, (SYSTANE ULTRA) 0.4-0.3 % Dpet Place 1 drop into each eye as needed. Active clobetasol (TEMOVATE) 0.05 % cream Apply 1 application topically daily as needed. Active pyridoxine, vitamin B6, (B-6) 50 MG tablet Take 50 mg by mouth daily. Active loperamide (IMODIUM A-D) 2 mg tablet Take 2 mg by mouth 4 (four) times a day as needed for diarrhea. Active YARA ROOT, BULK, MISC 1 capsule by Miscellaneous route as needed. Active fexofenadine (BREE) 180 MG tablet Take 1 tablet (180 mg total) by mouth daily. 019 Active fluticasone propion-salmeteroL (WIXELA INHUB) 250-50 mcg/dose DISKUS Inhale 250 mcg/actuation of fluticasone into the lungs. Take 1 puff in the am and 1 puff in the pm Active diazePAM (VALIUM) 2 MG tabletIndications:PIYUSH (generalized anxiety disorder) 0.5-1 tab PO BID prn severe anxiety 10 tablet 024 Active metoprolol succinate (TOPROL-XL) 25 MG 24 hr tabletIndications:Palpi tations Take 1 tablet (25 mg total) by mouth daily. 90 tablet 3 025 Active atorvastatin (LIPITOR) 20 MG tabletIndications:Pure hypercholesterolemia TAKE 1 TABLET(20 MG) BY MOUTH DAILY 90 tablet 3 025 Active sertraline (ZOLOFT) 25 MG tabletIndications:PIYUSH (generalized anxiety disorder) Take 1 tablet (25 mg total) by mouth daily. 90 tablet 3 025 Active zonisamide (ZONEGRAN) 50 MG capsuleIndications:Part ial symptomatic epilepsy with complex partial seizures, not intractable, without status epilepticus,On antiepileptic therapy TAKE 1 CAPSULE BY MOUTH TWICE DAILY. TAKE 1 CAPSULE IN AM AND 1 CAPSULE IN PM 180 capsule 3 025 Active omeprazole (PRILOSEC) 20 MG capsuleIndications:Andrew roesophageal reflux disease TAKE 1 CAPSULE(20 MG) BY MOUTH TWICE DAILY 180 capsule 3 025 Active phenytoin (DILANTIN) 100 MG ER capsuleIndications:Part ial symptomatic epilepsy with complex partial seizures, not intractable, without status epilepticus,On antiepileptic therapy Take 1 tab am and 2 tab pm (100mg in the AM, 200mg in the PM) 270 capsule 3 025 Active famotidine (PEPCID) 20 MG tabletIndications:Abdom inal pain, epigastric Take 1 tablet (20 mg total) by mouth daily. 90 tablet 3 025 Active fluticasone propionate (FLONASE) 50 mcg/actuation nasal spray 1 spray by Nasal route daily. Active gabapentin (NEURONTIN) 600 MG tablet TAKE 2 TABLETS(1200 MG) BY MOUTH TWICE DAILY 360 tablet 3 025 Active Bacillus coagulans-inulin 1 billion-250 cell-mg Cap Take 250 mg by mouth daily. Active Active Problems Problem Noted Date Diagnosed Date Leg weakness 09/27/2024 Assessment & Plan (09/27/2024 2:34 PM EDT): - Unclear etiology at this time, given the symptoms ongoing for the last few years with frequent episodes of leg giving out on the patient, with acute worsening last night and increased pain. -Has had prior history of osteoarthritis, has had significant compression fracture in the lumbar spine requiring kyphoplasty was performed earlier in April, states that the pain did not radiate to his left lower extremity, did have localized pain which has since improved. No new increasing pain in the lower spine. 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 - Given acute weakness and change, neurology was consulted recommended MRI brain and MRI lumbar spine for better evaluation. Less likely to be CVA. Plan: No indication for ASA at this time, continue home Lipitor dose MRI of the brain ordered and pending MRI of the lumbar spine ordered and pending Continue antiepileptic medications Neurochecks every 4 hours, stroke pathway ordered per neurorecommendations Check lipid panel, A1c, TSH PT/OT consulted rec speciated Obtain x-ray of the left lower extremity including hip and knee. Fever 06/15/2023 Assessment & Plan (06/15/2023 2:19 PM EDT): Upper Respiratory Infection: Fever, cough, postnasal drip, and headache for 5 days. No shortness of breath. Lungs with ronchi. Concern for pneumonia given symptoms and lung exam. -Order labs and COVID test. -Order chest x-ray to rule out pneumonia. -Prescribe Tessalon for cough, up to three times a day. -Continue to monitor ear pain and headaches. If persistent or worsening, consider further evaluation. -Continue to monitor fever. -Continue Tylenol and Advil as needed. -He has had covid previously and was not a candidate for Paxlovid, outside the window for flu treatment. Aneurysm of ascending aorta without rupture 05/2022 Overview (12/16/2022): Incidental on echo 12/2022. CT due 12/2023 Assessment & Plan (01/24/2024 2:37 AM EST): Due for repeat imaging, order placed Orders: CT Angio Chest; Future History of basal cell carcinoma 08/22/2022 Palpitations 08/10/2021 Assessment & Plan (08/11/2021 12:16 AM EDT): Concerning episodes of palpitations x mos lasting up to 30 minutes with HR to 130's per pt Very concerning for possible afib w/ RVR EKG w/o arrhythmia today Event monitor Pt thinks due to dehydration- certainly reasonable to stay well hydrated and if no further occurrences no need for further eval Long-term current use of proton pump inhibitor t herapy 02/25/2021 Anxiety 11/12/2018 Assessment & Plan (08/11/2021 12:20 AM EDT): Very rare prn ativan, several doses/year. Very reasonable sparing use. OK to continue PRN. IF increasing frequency (>1x/mo) need to re-evaluate mgmt Assessment & Plan (03/24/2019 1:38 PM EST): He has anxiety but this is under good control as well Postprandial hypoglycemia 11/12/2018 Intermittent diarrhea 08/06/2018 Assessment & Plan (09/27/2024 2:34 PM EDT): -Suspect secondary to antibiotic use, doxycycline for URI the patient is no longer on at this time -Was seen in the ED a couple days prior, C. difficile testing was negative Plan: Probiotics Avoid dairy products at this time Continue clinical monitoring. Allergic rhinitis 04/26/2018 Asthma 12/28/2017 Overview (12/28/2017): PFTs 05/21/17: no obstructdive nor restrictive defects; evidence of small airways disease with significant bronchodilator response; minimal air trapping; mild diiffusion impairment Peripheral artery vasospasm 12/28/2017 Assessment & Plan (03/24/2019 1:37 PM EST): Also as mentioned this patient is not having a big issue with this problem this year as the winter is not been that cold. Assessment & Plan (08/06/2018 10:29 AM EDT): As mentioned this patient needs to be very careful with cold exposure which she is fully aware of I will see him again in 6 months Assessment & Plan (02/04/2018 10:41 AM EST): This is clearly related to cold exposure the mainstay of therapy will be to just have warm fingers and toes which she is doing with excellent response if for some reason this is ineffective we can try a dihydropyridine calcium channel cheryl to see if this helps but will not do this upfront. I will follow-up with him in July or June or sooner if necessary Adenomatous polyp of colon 08/24/2017 Overview (08/24/2017): Last colonoscopy 05-05-2016 revealed moderate sigmoid diverticulosis; five polyps, three of which were tubular adenomatous, one mildly hyperplastic, one simply colonic mucosa with a lymphoid follicle Hypertension Assessment & Plan (03/12/2024 11:54 PM EST): Well controlled in office B/l UE bp symmetrical, pt reassured- home cuff may not be reading correctly on 1 side, review instructions advised Assessment & Plan (01/24/2024 2:37 AM EST): Well controlled, no changes Orders: Comprehensive metabolic panel; Future CBC and differential; Future Assessment & Plan (08/11/2021 12:05 AM EDT): Well controlled Continue lisinopril Assessment & Plan (03/24/2019 1:37 PM EST): Well-controlled at the present time Assessment & Plan (08/06/2018 10:29 AM EDT): Well-controlled to the guidelines Assessment & Plan (02/04/2018 10:41 AM EST): Controlled goal should be less than 130 mm of mercury Seizure disorder Assessment & Plan (09/27/2024 2:34 PM EDT): Continue phenytoin, gabapentin and zonisamide as prescribed Assessment & Plan (01/24/2024 2:37 AM EST): Dilantin level due Orders: Dilantin (free) level; Future Comprehensive metabolic panel; Future CBC and differential; Future Assessment & Plan (06/15/2023 2:17 PM EDT): Seizure Disorder: On Phenytoin. No recent seizures. -Continue current management. Monitor for fever as it can lower seizure threshold. Assessment & Plan (08/11/2021 12:19 AM EDT): Followed by neurology, stable on dilantin. No sz in years Sleep apnea Assessment & Plan (09/27/2024 2:34 PM EDT): Can use home CPAP per preference Polyneuropathy Overview (05/18/2017): idiopathic, normal glycohemoglobin 10/1009 Assessment & Plan (01/24/2024 2:37 AM EST): Stable with gabapentin Balance still lackluster but doing well w/ cane No falls Assessment & Plan (08/11/2021 12:18 AM EDT): Idiopathic Well controlled w/ gabapentin Subclinical hypothyroidism Overview (05/18/2017): Dr. Rivero 12/05/10 likely benign multinodular goiter; FNA negative for malignancy; Annual TSH advised Assessment & Plan (01/24/2024 2:37 AM EST): Labs due after new year Orders: TSH with reflex; Future Prediabetes Assessment & Plan (01/24/2024 2:37 AM EST): Labs due after new year Orders: Hemoglobin A1c; Future Assessment & Plan (08/11/2021 12:17 AM EDT): FPG 97 02/2021 Annual monitoring Assessment & Plan (08/06/2018 10:30 AM EDT): LDL ideally should be less than 70 and hemoglobin A1c less than 7 I did encourage diet and exercise Hyperlipidemia Assessment & Plan (01/24/2024 2:37 AM EST): Labs pending No change to statin Orders: Lipid panel; Future Lipid panel; Future Assessment & Plan (08/11/2021 12:17 AM EDT): Cont simvastatin Assessment & Plan (02/04/2018 10:41 AM EST): LDL for his wrist should be less than 70 as he is prediabetic Benign prostatic hyperplasia with urinary obstru ction Overview (08/24/2017): Dr. Enamorado Assessment & Plan (08/11/2021 12:19 AM EDT): fmax dose flomax effective Osteoarthritis of left knee Gastroesophageal reflux disease Overview (01/26/2020): Upper endoscopy 06/27/[address] Fletcher revealed gastritis and hiatal hernia. Resolved Problems Problem Noted Date Diagnosed Date Resolved Date Perforated eardrum, left 04/26/2018 Tension headache 08/24/2017 08/10/2021 Class 1 obesity 05/18/2017 08/22/2022 Encounters Date Type Department Care Team Description 10/23/2024 3:15 PM EDT - 10/23/2024 11:59 PM EDT Hospital Encounter [facility] [address] [place] [address] Fabiana Tripathi MD Discharge Disposition: Home or Self Care 10/16/2024 2:30 PM EDT Office Visit [facility] [address] [place] [address] Daniel Bustillo MD Partial symptomatic epilepsy with complex partial seizures, not intractable, without status epilepticus (Primary Dx); On antiepileptic therapy; Memory changes 10/14/2024 4:45 PM EDT Office Visit [facility] [address] [place] [address] Fabiana Tripathi MD Foraminal stenosis of lumbar region (Primary Dx); Hospital discharge follow-up; Diarrhea, unspecified type; Cat bite of right hand, initial encounter 10/03/[address] [address] Fabiana Tripathi MD Medication Refill 09/30/2024 Home Care Visit [facility] [address] [place] [phone] Ling Wilson, PT CASE COMMUNICATION 09/29/2024 1:30 PM EDT Home Care Visit [facility] [address] [place] [phone] Ling Wilson, PT NON ADMIT HOME HEALTH VISIT 09/29/[address] [address] Fabiana Tripathi MD call back (Pt needs a surgical consult, pt is having a lot of fall, believes its coming from his spine) 09/28/2024 Orders Only [facility] [address] [place] [phone] Homehealth, Christal Nation MD 09/27/2024 5:27 AM EDT - 09/28/2024 3:30 PM EDT Hospital Encounter [facility] [address] [place] [address] Andre Loo MD Grachev, Maksim, DO Barbosa-Mita, Debora Chun DO, MPH Discharge Disposition: Home-Health Care Sv 09/27/2024 Procedure Pass [address] [address] 09/27/2024 Procedure Pass [address] [address] 09/27/2024 Procedure Pass [facility] Ct Scan [address] [address] 09/27/2024 Procedure Pass [address] [address] 09/27/2024 Procedure Pass [address] [address] 09/24/2024 5:33 PM EDT - 09/24/2024 9:07 PM EDT Emergency [facility] [address] [place] [address] Discharge Disposition: Home or Self Care 09/23/2024 Telephone [facility] [address] [address] Fabiana Tripathi MD Triage (Red + abdominal pain/cramping + diarrhea + 12 days) 09/08/2024 2:30 PM EDT Office Visit [address] [address] Marga Restrepo, Odessa Oconnor, PT Acute bilateral low back pain with left-sided sciatica (Primary Dx) 09/01/2024 1:45 PM EDT Office Visit [address] [address] Marga Restrepo, [employer] FIN[employer] Odessa Tadeo, PT Acute bilateral low back pain with left-sided sciatica (Primary Dx) 08/27/2024 2:30 PM EDT Office Visit [address] [address] Marga Restrepo, [employer]BLE FINISHER Odessa Tadeo, PT Acute bilateral low back pain with left-sided sciatica (Primary Dx) 08/20/2024 2:30 PM EDT Office Visit [address] [address] Marga Restrepo, [employer] FINISH[employer] Odessa Tadeo, PT Acute bilateral low back pain with left-sided sciatica (Primary Dx) 08/13/2024 2:30 PM EDT Office Visit [address] [address] Marga Restrepo, [employer] FINISH[employer] Odessa Tadeo, PT Acute bilateral low back pain with left-sided sciatica (Primary Dx) 08/13/[address] [address] Fabiana Tripathi MD Medication Refill 08/06/2024 2:30 PM EDT Office Visit [address] [address] Marga Restrepo, Odessa Oconnor, PT Acute bilateral low back pain with left-sided sciatica (Primary Dx) from Last 3 Months Immunizations Immunization Administration Dates Next Due COVID-19 (Pre-12/04) Pfizer Vaccine, mRNA, PF 11/25/2020,05/14/2020,04/23/2020 INFLUENZA, SPLIT VIRUS, TRIV ALENT W/ PRESERVATIVE IM 11/12/2018,11/12/2017 Influenza High-Dose Quadriva lent Preservative Free IM 11/14/2021,11/05/2020,10/16/2019 Influenza High-Dose Trivalen t Preservative Free IM 10/22/2023,11/08/2018,12/07/2017,01/03 Influenza, Unspecified Formulation 12/29,10/14/2019,12/21/2015,12/13 Pneumococcal conjugate PCV13 12/21/2015 Pneumococcal conjugate PCV20 08/08/2022 Pneumococcal polysaccharide PPSV23 08/27/2017, RSV Vaccine (monovalent, adjuvanted) 11/22/2022 Td, unspecified formulation 05/12/2016 Tdap 05/12/2016 Zoster live 02/12/2011,01/19/2011 Zoster recombinant 12/16/2019,10/16/2019 Family History Medical History Relation Comments Coronary artery disease Brother CABG x 2 2022 Lupus Daughter 1 Migraines Daughter 2 Multiple sclerosis Daughter 2 Diabetes type II Father Hypertension Father COPD Mother Heart failure Mother former smoker Hypertension Mother Alzheimer's disease Paternal Aunt 2 out of 3 p aternal aunts had Alzheimer's disease Stomach cancer Paternal Grandfather smoker Celiac disease Sister Dementia Sister Colon cancer Neg Hx Thyroid disease Neg Hx Relation Status Comments Brother Daughter 1 Daughter 2 Father (Age 70) Mother (Age 87) Paternal Aunt Paternal Grandfather (Age 70's) Sister Social History Tobacco Use Types Packs/Day Years Used Date Smoking Tobacco: Former Cigarettes 0.3 3 1 965 - 1968 Smokeless Tobacco: Never Tobacco Cessation:Counseling Given: Not Answered Alcohol Use Standard Drinks/Week Comments Never 0 [...] your housing situation today? I have ana jeffers 09/27/2024 How many times have you move [...] Orientation Straight 10/26/2022 6: 52 PM EDT Last Filed Vital Signs Vital Sign Reading Time Taken Comments Blood Pressure 130/62 10/14/2024 4:47 PM EDT Pulse 52 10/14/2024 4:47 PM EDT Temperature 36.7 C (98.1 F) 10/14/2024 4:47 PM EDT Respiratory Rate 19 09/28/2024 12:40 PM EDT Oxygen Saturation 96% 10/14/2024 4:47 PM EDT Inhaled Oxygen Concentration - - Weight 74.4 kg (164 lb) 10/14/2024 4:47 PM EDT Height 167.6 cm (5' 5.98 ) 10/14/2024 4:47 PM ED T Body Mass Index 26.48 10/14/2024 4:47 PM EDT Plan of Treatment Upcoming Encounters Date Type Department Care Team (Late st Contact Info) Description 07/02/2024 Procedure Pass [facility], [address] [address] 01/21/2025 1:15 PM EST Office Visit [address] [address] Fabiana Triapthi MD [address] [place] [address] [address] [place] [address] angel 02/02/2025 2:30 PM EST Appointment [address] [address] Fabiana Tripathi MD [address] [place] [address] [address] [place] [address] angel 04/16/2025 2:30 PM EST Office Visit [facility] Neurology [address] [place] [address] Daniel Bustillo MD [address] [place] [address], [address] [place] [address] Health Maintenance Due Date Last Done Comments COLOGUARD 1994 FIT TEST 1994 FOBT 1994 SIGMOIDOSCOPY 1994 VIRTUAL COLONOSCOPY 1994 INFLUENZA VACCINE (#1) 2024 , 12/29/2022, 11/14/2021, Additional history exists COVID-19 VACCINE ( season) 2024 10/22/2023, 11/02/2022, 11/14/2021, Additional history exists DEPRESSION SCREENING 01/20/2025 01/21/2024 PHENYTOIN (DILANTIN) LEVEL 03/19/202503/19, 10/26/2022, 06/27/2022, Additional history exists BLOOD PRESSURE 04/13/2025 10/14/2024 LIPID PANEL 09/28/2025 09/28/2024, 01/12, 05/29/2023, Additional history exists Adult Td,Tdap Booster 05/12/2026 05/12/2016, 017 COLONOSCOPY 04/11/2027 04/11/2022, 04/04/2019 COLORECTAL CANCER SCREENING 04/11/2027 FOLLOW UP BONE DENSITY TESTING 06/24/2028 06/25/2023 HEPATITIS C SCREENING Completed 04/28/2016 ZOSTER VACCINES Completed 12/16/2019, 04/2019, 02/12/2011, Additional history exists PNEUMOCOCCAL VACCINES (50+ years) Completed 08/08/2022, 08/27/2017, 12/21/2015, Additional history exists RSV VACCINE Completed 11/22/2022 SMOKING STATUS SCREENING (Once After 26 Yrs) Completed 10/14/2024 HEPATITIS A VACCINES Aged Out No long er eligible based on patient's age to complete this topic HIB VACCINES Aged Out No longer eligi ble based on patient's age to complete this topic MENINGOCOCCAL VACCINES (ACWY) Aged Out No longer eligible based on patient's age to complete this topic MENINGOCOCCAL VACCINES (B) Aged Out N o longer eligible based on patient's age to complete this topic Medical Devices Not on file Procedures Procedure Name Priority Date/Time Associated Diagnosis Comments LIPID PANEL Routine 09/28/2024 6:10 AM EDT HEMOGLOBIN A1C Routine 09/28/2024 6:10 AM EDT SEDIMENTATION RATE (ESR) Routine 09/28/2024 6:10 AM EDT C-REACTIVE PROTEIN, HIGH SENSITIVITY Routine 09/28/2024 6:10 AM EDT TSH Routine 09/28/2024 6:10 AM EDT PTT Routine 09/28/2024 6:10 AM EDT PT-INR Routine 09/28/2024 6:10 AM EDT COMPREHENSIVE METABOLIC PANEL Routine 09/28/2024 6:10 AM EDT CBC AND DIFFERENTIAL Routine 09/28/2024 6:10 AM EDT PHOSPHORUS Routine 09/28/2024 6:10 AM EDT MAGNESIUM Routine 09/28/2024 6:10 AM EDT MRI LUMBAR SPINE (NEURO) WITHOUT CONTRAST Required for discharge 09/27/2024 3:40 PM EDT MRI BRAIN WITHOUT CONTRAST Required for discharge 09/27/2024 3:40 PM EDT XR KNEE 4 OR MORE VIEWS (LEFT) Routine 09/27/2024 2:25 PM EDT XR HIP 2 VW LEFT PLUS PELVIS Routine 09/27/2024 2:[address] LUMBAR SPINE WITH CONTRAST Routine 09/27/2024 8:[address] THORACIC SPINE WITHOUT CONTRAST Routine 09/27/2024 8:[address] ANGIO HEAD WITH AND WITHOUT CONTRAST, CT ANGIO NECK WITH CONTRAST Routine 09/27/2024 8:56 AM EDT URINALYSIS W/REFLEX URINE CULTURE STAT 09/27/2024 7:02 AM EDT ECG 12-LEAD STAT 09/27/2024 6:56 AM EDT MAGNESIUM STAT 09/27/2024 4:56 AM EDT LIPASE STAT 09/27/2024 4:56 AM EDT LFTS (HEPATIC PANEL) STAT 09/27/2024 4:56 AM EDT BASIC METABOLIC PANEL STAT 09/27/2024 4:56 AM EDT CBC AND DIFFERENTIAL STAT 09/27/2024 4:56 AM EDT URINALYSIS W/REFLEX URINE CULTURE STAT 09/24/2024 7:09 PM EDT STOOL CULTURE STAT 09/24/2024 7:09 PM EDT C. DIFFICILE PCR STAT 09/24/2024 7:09 PM EDT MAGNESIUM STAT 09/24/2024 4:55 PM EDT LIPASE STAT 09/24/2024 4:55 PM EDT LFTS (HEPATIC PANEL) STAT 09/24/2024 4:55 PM EDT BASIC METABOLIC PANEL STAT 09/24/2024 4:55 PM EDT CBC AND DIFFERENTIAL STAT 09/24/2024 4:55 PM EDT DILANTIN (FREE) LEVEL Routine 03/19/2024 10:46 AM EST Seizure disorder BD DXA AXIAL (SPINE) WITH HIP Routine 06/25/2023 3:43 PM EDT Long-term use of high-risk medication HM COLONOSCOPY FOR RESULT ENTRY ONLY Routine 04/11/2022 OUTSIDE HEPATITIS C VIRUS SCREENING Routine 04/28/2016 from Last 3 Months or Most Recently Relevant to Health Maintenance Results * (ABNORMAL) C-reactive protein, high sensitivity (09/28/2024 6:10 AM EDT) CRP, HIGH SENSITIVITY 80.8(H) 0.0 - 5.0 mg/L [facility] Comment: Interpretation: hsCRP level (mg/L) Relative Risk <1.0 Low 1.0 - 3.0 Average >3.0 High Neonates (0-3 weeks): 0.1 - 4.1 mg/L Children (2 months - 15 years): 0.1 - 2.8 mg/L Blood 09/28/2024 6:10 AM EDT 09/28/2024 6:16 AM EDT us Adrian Balderrama DO LAB BLOOD ORDERABLES Final Res ult [address] [address] * (ABNORMAL) Comprehensive metabolic panel (09/28/2024 6:10 AM EDT) [facility] SODIUM 142 133 - 146 mmol/L [facility] POTASSIUM 3.6 3.3 - 5.1 mmol/L [facility] CHLORIDE 110(H) 96 - 108 mmol/L [facility] CO2 22 21 - 35 mmol/L [facility] BUN 8 6 - 19 mg/dL [facility] CREATININE 0.80 0.5 - 1.5 mg/dL [facility] GLUCOSE 87 70 - 99 mg/dL [facility] ALBUMIN 3.0(L) 3.9 - 4.8 g/dL [facility] TOTAL PROTEIN 5.2(L) 6.5 - 8.0 g/dL [facility] CALCIUM 8.3(L) 8.4 - 10.3 mg/dL [facility] ALKALINE PHOSPHATASE 109 39 - 117 U/L [facility] TOTAL BILIRUBIN 0.4 0.0 - 1.2 mg/dL [facility] AST 17 0 - 37 U/L [facility] ALT 14 0 - 40 U/L [facility] GLOBULIN 2.2 1 - 4.8 g/dL [facility] EGFR 92 >59 mL/min/1.7 3m2 [facility] Comment:Estimated glomerular filtration rate calculated using the CKD-EPI refit equation. ANION GAP 14 10 - 20 mmol/L [facility] Blood 09/28/2024 6:10 AM EDT 09/28/2024 6:16 AM EDT Adrian Balderrama DO LAB BLOOD ORDERABLES Final Res ult Performing Organization Address City/[facility] Co de Phone Number [address] [address] * PTT (09/28/2024 6:10 AM EDT) APTT 29.8 25.1 - 36.5 sec [facility] Comment:APTT response to unf ractionated heparin concentrations between 0.3 and 0.7 IU/mL is typically 54.0-94.0 seconds in uncomplicated cases. The Anti-Xa assay is the preferred method. Blood 09/28/2024 6:10 AM EDT 09/28/2024 6:16 AM EDT Adrian DominiqueYCD [employer] DO LAB BLOOD ORDERABLES Final Res ult Performing Organization Address [facility] Co de Phone Number [address] [address] * Sedimentation rate (ESR) (09/28/2024 6:10 AM EDT) ESR 6 0 - 20 mm/h [facility] Blood 09/28/2024 6:10 AM EDT 09/28/2024 6:16 AM EDT Adrian DominiqueYCD [employer] DO LAB BLOOD ORDERABLES Final Res ult Performing Organization Address [facility]/ZIP Co de Phone Number [address] [address] * PT-INR (09/28/2024 6:10 AM EDT) PT 12.2 10.2 - 12.9 sec [facility] INR 1.0 0.9 - 1.1 [facility] Comment:Therapeutic range fo r oral Vitamin K antagonists: 2.0-3.5 Blood 09/28/2024 6:10 AM EDT 09/28/2024 6:16 AM EDT us Adrian Balderrama DO LAB BLOOD ORDERABLES Final Res ult [address] [address] * (ABNORMAL) CBC and differential (09/28/2024 6:10 AM EDT) Only the most recent of3 resultswithin the time period is included. WBC 6.70 4.00 - 11.00 K/uL [facility] RBC 3.24(L) 4.50 - 5.90 M/uL [facility] HGB 11.6(L) 13.5 - 17.5 g/dL [facility] HCT 33.1(L) 41.0 - 53.0 % [facility] PLT 143(L) 150 - 450 K/uL [facility] MCV 102.2(H) 80.0 - 100.0 fL [facility] MCH 35.8(H) 27.0 - 31.0 pg [facility] MCHC 35.0 32.0 - 36.0 g/dL [facility] RDW 13.3 11.5 - 14.5 % [facility] MPV 10.2 8.4 - 12.0 fL [facility] NRBC 0.00 0.00 /100 WBCs [facility] ABSOLUTE NRBC 0.00 0.00 K/uL [facility] DIFF METHOD Auto [facility] NEUTS 69.2 48.0 - 76.0 % [facility] LYMPHS 11.5(L) 18.0 - 41.0 % [facility] MONOS 10.0 4.0 - 11.0 % [facility] EOS 8.8(H) 0.0 - 5.0 % [facility] BASOS 0.1 0.0 - 1.5 % [facility] Granulocytes, immature (%) 0.4 0.0 - 0.9 % [facility] ABSOLUTE NEUTS 4.63 1.92 - 7.60 K/uL [facility] ABSOLUTE LYMPHS 0.77 0.72 - 4.10 K/uL [facility] ABSOLUTE MONOS 0.67 0.16 - 1.10 K/uL [facility] ABSOLUTE EOS 0.59(H) 0.00 - 0.50 K/uL [facility] ABSOLUTE BASOS 0.01 0.00 - 0.15 K/uL [facility] Granulocytes, immature 0.03 0.00 - 0.09 K/uL [facility] Blood 09/28/2024 6:10 AM EDT 09/28/2024 6:16 AM EDT us Adrian Grachev DO LAB BLOOD ORDERABLES Final Res ult Performing Organization Address [facility] Co de Phone Number [address] [phone] * TSH (09/28/2024 6:10 AM EDT) TSH 2.83 0.27 - 4.20 uIU/mL [facility] Blood 09/28/2024 6:10 AM EDT 09/28/2024 6:16 AM EDT us Adrian Grachev DO LAB BLOOD ORDERABLES Final Res ult Performing Organization Address [facility]/ZIP Co de Phone Number [address] [phone] * (ABNORMAL) Phosphorus (09/28/2024 6:10 AM EDT) PHOSPHORUS 2.5(L) 2.7 - 4.5 mg/dL [facility] Blood 09/28/2024 6:10 AM EDT 09/28/2024 6:16 AM EDT us Adrian Grachev DO LAB BLOOD ORDERABLES Final Res ult Performing Organization Address City/[facility]/ZIP Co de Phone Number [address] [address] * Magnesium (09/28/2024 6:10 AM EDT) Only the most recent of3 resultswithin the time period is included. MAGNESIUM 1.7 1.6 - 2.6 mg/dL [facility] Blood 09/28/2024 6:10 AM EDT 09/28/2024 6:16 AM EDT us Adrian Grachev DO LAB BLOOD ORDERABLES Final Res ult [address] [phone] * Hemoglobin A1c (09/28/2024 6:10 AM EDT) Pathologist [facility] [place] HEMOGLOBIN A1C 5.2 4.3 - 5.8 % [facility] Blood 09/28/2024 6:10 AM EDT 09/28/2024 6:17 AM EDT us [facility] DO LAB BLOOD ORDERABLES Final Res ult [address] [address] * (ABNORMAL) Lipid panel (09/28/2024 6:10 AM EDT) Pathologist [facility] [place] HDL 40 mg/dL [facility] Comment: Interpretation <40 mg/dL: Low HDL cholesterol (major risk factor for CHD) Greater than or equal to 60 mg/dL: High HDL cholesterol ( negative risk factor for CHD) HDL - cholesterol is affected by a number of factors, e.g. smoking, excerise, hormones, sex and age. CHOLESTEROL 96 0 - 240 mg/dL [facility] TRIGLYCERIDES 66 30 - 160 mg/dL [facility] LDL 43(L) 50 - 129 mg/dL [facility] Comment: LDL levels in terms of risk for coronary heart disease: <100 mg/dL: Optimal 100-129 mg/dL: Near or above optimal 130-159 mg/dL: Borderline high 160-189 mg/dL: High >190 mg/dL: Very High CARDIAC RISK RATIO 2.4(L) 3.4 - 5.0 [facility] Blood 09/28/2024 6:10 AM EDT 09/28/2024 6:17 AM EDT us Adrian Jameskevinemily DO LAB BLOOD ORDERABLES Final Res ult [address] [address] * MRI LUMBAR SPINE (NEURO) WITHOUT CONTRAST (09/27/2024 3:40 PM EDT) Anatomical Region Laterality Modality L-spine Magnetic Resonan ce 09/27/2024 5:17 PM EDT Impressions 09/27/2024 5:31 PM EDT 1. Status post cement augmentation of the L1 compression fracture. 2. No acute compression fracture. 3. Severe lumbar spondylosis at L4-5 and L5-S1 is similar compared with the prior MRI, contributing to severe bilateral foraminal stenosis at L4-5 and moderate bilateral foraminal stenosis at L5-S1. Narrative 09/27/2024 5:31 PM EDT MRI LUMBAR SPINE (NEURO) WITHOUT CONTRAST Referring clinician's provided indication for this examination in Epic: * Low back pain, > 6 wks; * Low back pain, prior surgery, new symptoms TECHNIQUE: MRI LUMBAR SPINE (NEURO) WITHOUT CONTRAST Multi-sequence, multi-planar MRI of the lumbar spine was performed without intravenous contrast. COMPARISON: MRI LUMBAR SPINE (NEURO) WITHOUT CONTRAST FINDINGS: LUMBAR SPINE: Alignment and Vertebrae: Status post cement augmentation of the L1 compression fracture. There is residual mild marrow edema within the vertebral body, significantly decreased compared with the prior MRI. Mild retropulsion of L1 is unchanged. No acute compression fracture. Unchanged grade 1 degenerative anterolisthesis at L5-S1. Marrow: No bone marrow replacing lesion. Discs and Endplates: Disc desiccation and mild disc height loss at T11-12 and T12-L1 and at L3-4 through L5-S1. Mild endplate edema posteriorly at L4-5, similar compared with the prior MRI. Conus: Conus is normal in signal and terminates at the upper L2 level. Soft Tissues: No paraspinal mass or fluid collection. Minimal edema in the left paravertebral soft tissues at L3-4, slightly increased compared to prior MRI, likely reactive to degenerative disc disease. Other Findings: None. Findings by level: T12-L1: Mild retropulsion contributes to mild spinal canal stenosis. No foraminal stenosis. L1-L2: No spinal canal or foraminal stenosis. L2-L3: No spinal canal or foraminal stenosis. L3-L4: Disc bulging and moderate facet arthropathy. Mild spinal canal stenosis. Mild bilateral foraminal stenosis. L4-L5: Disc bulging with central annular fissure, severe facet arthropathy, ligamentum flavum thickening. Mild spinal canal stenosis with effacement of the bilateral subarticular zones. Severe bilateral foraminal stenosis. Findings are similar compared with the prior MRI. L5-S1: Grade 1 anterolisthesis, disc bulging, and extensive bilateral facet arthropathy. No significant spinal canal stenosis. Mild bilateral subarticular recess stenosis. Moderate bilateral foraminal stenosis. Procedure Note Samy Leon MD - 09/27/2024 MRI LUMBAR SPINE (NEURO) WITHOUT CONTRAST Referring clinician's provided indication for this examination in Epic: *Low back pain, > 6 wks; * Low back pain, prior surgery, new symptoms TECHNIQUE: MRI LUMBAR SPINE (NEURO) WITHOUT CONTRAST Multi-sequence, multi-planar MRI of the lumbar spine was performed withoutintravenous contrast. COMPARISON: MRI LUMBAR SPINE (NEURO) WITHOUT CONTRAST FINDINGS: LUMBAR SPINE: Alignment and Vertebrae: Status post cement augmentation of the [id number] fracture. There is residual mild marrow edema within thevertebral body, significantly decreased compared with the prior MRI. Mildretropulsion of L1 is unchanged. No acute compression fracture. Unchangedgrade 1 degenerative anterolisthesis at L5-S1. Marrow: No bone marrow replacing lesion. Discs and Endplates: Disc desiccation and mild disc height loss at [id number] T12-L1 and at L3-4 through L5-S1. Mild endplate edema posteriorly atL4-5, similar compared with the prior MRI. Conus: Conus is normal in signal and terminates at the upper L2 level. Soft Tissues: No paraspinal mass or fluid collection. Minimal edema in theleft paravertebral soft tissues at L3-4, slightly increased compared toprior MRI, likely reactive to degenerative disc disease. Other Findings: None. Findings by level: T12-L1: Mild retropulsion contributes to mild spinal canal stenosis. Noforaminal stenosis. L1-L2: No spinal canal or foraminal stenosis. L2-L3: No spinal canal or foraminal stenosis. L3-L4: Disc bulging and moderate facet arthropathy. Mild spinal canalstenosis. Mild bilateral foraminal stenosis. L4-L5: Disc bulging with central annular fissure, severe facetarthropathy, ligamentum flavum thickening. Mild spinal canal stenosis witheffacement of the bilateral subarticular zones. Severe bilateral foraminalstenosis. Findings are similar compared with the prior MRI. L5-S1: Grade 1 anterolisthesis, disc bulging, and extensive bilateralfacet arthropathy. No significant spinal canal stenosis. Mild bilateralsubarticular recess stenosis. Moderate bilateral foraminal stenosis. IMPRESSION: 1. Status post cement augmentation of the L1 compression fracture. 2. No acute compression fracture. 3. Severe lumbar spondylosis at L4-5 and L5-S1 is similar compared withthe prior MRI, contributing to severe bilateral foraminal stenosis at L4-5and moderate bilateral foraminal stenosis at L5-S1. Adrian Balderrama DO [facility] MR XSPECIALTY Final Result * MRI BRAIN WITHOUT CONTRAST (09/27/2024 3:40 PM EDT) Anatomical Region Laterality Modality Head Magnetic Resonan ce 09/27/2024 4:46 PM EDT Impressions 09/28/2024 12:10 AM EDT 1. No acute infarct, intracranial hemorrhage or mass effect. 2. Background of moderate to severe white matter signal abnormalities, likely in the setting of chronic small vessel disease Narrative 09/28/2024 12:10 AM EDT MRI BRAIN WITHOUT CONTRAST Referring clinician's provided indication for this examination in [facility]: * Transient ischemic attack (TIA), left lower extremity heaviness TECHNIQUE: MRI BRAIN WITHOUT CONTRAST COMPARISON: Brain MRI dated 03/09/2022. FINDINGS: Brain Parenchyma: No evidence of acute infarct, mass or hemorrhage. There are moderate to severe scattered and patchy foci of T2 hyperintensity in the periventricular and subcortical white matter, nonspecific, commonly seen with chronic small vessel disease. Ventricular System and Extra-Axial Spaces: Normal. No evidence of midline shift or hydrocephalus. Extracranial Structures: Expected arterial flow signal is observed at the skull base. A small mucosal retention cyst is noted in the right maxillary sinus. Small layering fluid is noted in the left maxillary sinus. Left ventricular placement. Procedure Note Jessica Moreland MD - 09/28/2024 MRI BRAIN WITHOUT CONTRAST Referring clinician's provided indication for this examination in [facility]: *Transient ischemic attack (TIA), left lower extremity heaviness TECHNIQUE: MRI BRAIN WITHOUT CONTRAST COMPARISON: Brain MRI dated 03/09/2022. FINDINGS: Brain Parenchyma: No evidence of acute infarct, mass or hemorrhage. Thereare moderate to severe scattered and patchy foci of T2 hyperintensity inthe periventricular and subcortical white matter, nonspecific, commonlyseen with chronic small vessel disease. Ventricular System and Extra-Axial Spaces: Normal. No evidence of midlineshift or hydrocephalus. Extracranial Structures: Expected arterial flow signal is observed at theskull base. A small mucosal retention cyst is noted in the right maxillarysinus. Small layering fluid is noted in the left maxillary sinus. Leftventricular placement. IMPRESSION: 1. No acute infarct, intracranial hemorrhage or mass effect. 2. Background of moderate to severe white matter signal abnormalities,likely in the setting of chronic small vessel disease Adrian Balderrama DO IMG MR HEAD/NECK Final Result * XR KNEE 4 OR MORE VIEWS (LEFT) (09/27/2024 2:25 PM EDT) Anatomical Region Laterality Modality Knee Left Computed Radiogr aphy 09/27/2024 2:36 PM EDT Impressions 09/27/2024 2:38 PM EDT No acute fracture or dislocation. Trace joint effusion. Narrative 09/27/2024 2:38 PM EDT XR KNEE 4 OR MORE VIEWS (LEFT) Referring clinician's provided indication for this examination in Epic: Pain COMPARISON: 03/10/2020 FINDINGS: Left Knee: No acute displaced fracture or dislocation. No significant joint space narrowing. Minimal enthesophyte formation off superior pole patella. Trace joint fluid. Procedure Note Robert Johnson MD - 09/27/2024 XR KNEE 4 OR MORE VIEWS (LEFT) Referring clinician's provided indication for this examination in Epic:Pain COMPARISON: 03/10/2020 FINDINGS: Left Knee: No acute displaced fracture or dislocation. No significantjoint space narrowing. Minimal enthesophyte formation off superior polepatella. Trace joint fluid. IMPRESSION: No acute fracture or dislocation. Trace joint effusion. us Adrian Balderrama DO IMG XR LOWER EXTREMITY Final R esult * XR HIP 2 VW LEFT PLUS PELVIS (09/27/2024 2:25 PM EDT) Anatomical Region Laterality Modality Hip, Pelvis Computed Radiogr aphy 09/27/2024 2:33 PM EDT Impressions 09/27/2024 2:36 PM EDT No acute fracture or dislocation. Mild degenerative changes. Narrative 09/27/2024 2:36 PM EDT XR HIP 2 VW LEFT PLUS PELVIS Referring clinician's provided indication for this examination in Epic: Pain COMPARISON: None FINDINGS: Pelvis: There is contrast within a distended urinary bladder from recent CT scan that partially obscures the sacrum and incompletely obscures the coccyx. Otherwise no acute fracture or dislocation identified. Mild degenerative changes of the sacroiliac joints and pubic symphysis. There are some spondylitic changes in the visualized lower lumbar spine. Probable Small bone island in the right iliac bone. Mild degenerative changes right hip Left hip: No acute displaced fracture or dislocation. There are mild degenerative changes with some joint space narrowing and mild marginal osteophyte formation off the superior lateral acetabulum. Procedure Note Robert Johnson MD - 09/27/2024 XR HIP 2 VW LEFT PLUS PELVIS Referring clinician's provided indication for this examination in [facility]:Pain COMPARISON: None FINDINGS: Pelvis: There is contrast within a distended urinary bladder from recentCT scan that partially obscures the sacrum and incompletely obscures thecoccyx. Otherwise no acute fracture or dislocation identified. Milddegenerative changes of the sacroiliac joints and pubic symphysis. Thereare some spondylitic changes in the visualized lower lumbar spine.Probable Small bone island in the right iliac bone. Mild degenerativechanges right hip Left hip: No acute displaced fracture or dislocation. There are milddegenerative changes with some joint space narrowing and mild marginalosteophyte formation off the superior lateral acetabulum. IMPRESSION: No acute fracture or dislocation. Mild degenerative changes. us Adrian Balderrama DO IMG XR PELVIS Final Result * CT ANGIO HEAD WITH AND WITHOUT CONTRAST, CT ANGIO NECK WITH CONTRAST (09/27/2024 8:56 AM EDT) Anatomical Region Laterality Modality Neck Computed Tomogra phy 09/27/2024 10:5 0 AM EDT Impressions 09/27/2024 11:08 AM EDT 1. No acute intracranial findings on noncontrast head CT. 2. No acute large vessel occlusion, aneurysm or dissection in the head or neck. 3. 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 4. Multinodular goiter. Narrative 09/27/2024 11:[address] ANGIO HEAD WITH AND WITHOUT CONTRAST, CT ANGIO NECK WITH CONTRAST Referring clinician's provided indication for this examination in [facility]: * Stroke/TIA, assess intracranial arteries; Left-sided leg weakness, known L1 compression fracture status post kyphoplasty. Differential includes CVA versus peripheral compression TECHNIQUE: * CTA of the head was performed before and after administration of intravenous contrast using tailored dose modulation techniques. Images were reconstructed in the axial, coronal, and sagittal planes, including angiographic image post-processing. 3D angiographic images with reformatting and post-processing reconstructions were performed and interpreted. * CTA of the neck was performed after administration of intravenous contrast using tailored dose modulation techniques. Images were reconstructed in the axial, coronal, and sagittal planes. 3D angiographic images with reformatting and post- processing reconstructions were performed and interpreted. COMPARISON: MRI BRAIN WITHOUT CONTRAST ; CT HEAD WITHOUT CONTRAST FINDINGS: CT HEAD: Brain Parenchyma: No midline shift, mass effect, parenchymal hemorrhage, or evidence of acute territorial infarct. Hypodensities in the cerebral periventricular and deep white matter, likely a manifestation of chronic small vessel disease. Ventricular System and Extra-Axial Spaces: No extra-axial fluid collections. Basal cisterns are patent. No hydrocephalus. Osseous and Extracranial Structures: No calvarial fracture or significant soft tissue hematoma. No significant paranasal sinus disease. Evidence of left ocular lens surgery. CTA HEAD: No aneurysm or arteriovenous malformation. Intracranial internal carotid arteries: No occlusion or high grade stenosis. Anterior cerebral arteries: No occlusion or high grade stenosis. Middle cerebral arteries: No occlusion or high grade stenosis. Vertebrobasilar system: No occlusion or high grade stenosis. Dominant right vertebral artery with markedly hypoplastic left vertebral artery primarily terminating at the posterior inferior cerebellar artery. Posterior cerebral arteries: No occlusion or high grade stenosis. Venous: No dural sinus thrombosis. CTA NECK: Aortic Arch and Branch Vessel Origins: The left vertebral artery arises directly from the aorta. No high grade stenosis. Right Carotid Artery: No occlusion, high grade stenosis or dissection. Left Carotid Artery: No occlusion, high grade stenosis or dissection. Right Vertebral Artery: No occlusion, high grade stenosis or dissection. 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 Secondary high-grade stenosis or occlusion of the hypoplastic artery between the posterior inferior cerebellar artery and basilar artery. Venous structures: The jugular veins enhance normally. NON-VASCULAR FINDINGS: Lungs and Airways: No acute abnormality. Soft tissues: Multifocal cystic nodules expanding the thyroid bilaterally primarily on the right with the dominant cystic nodular mass measuring up to 2.8 cm thick-walled cystic nodule extending into the upper mediastinum posteriorly on the right. Bones: Chronic disc degeneration at C5-6 with multilevel chronic asymmetric facet arthritis more severe on the left. Procedure Note Joseph Moser MD - 09/27/2024 CT ANGIO HEAD WITH AND WITHOUT CONTRAST, CT ANGIO NECK WITH CONTRAST Referring clinician's provided indication for this examination in Epic: *Stroke/TIA, assess intracranial arteries; Left-sided leg weakness, knownL1 compression fracture status post kyphoplasty. Differential includesCVA versus peripheral compression TECHNIQUE: * CTA of the head was performed before and after administration ofintravenous contrast using tailored dose modulation techniques. Imageswere reconstructed in the axial, coronal, and sagittal planes, includingangiographic image post- processing. 3D angiographic images withreformatting and post-processing reconstructions were performed andinterpreted. * CTA of the neck was performed after administration of intravenouscontrast using tailored dose modulation techniques. Images werereconstructed in the axial, coronal, and sagittal planes. 3D angiographicimages with reformatting and post-processing reconstructions wereperformed and interpreted. COMPARISON: MRI BRAIN WITHOUT CONTRAST ; CT HEAD WITHOUTCONTRAST FINDINGS: CT HEAD: Brain Parenchyma: No midline shift, mass effect, parenchymal hemorrhage,or evidence of acute territorial infarct. Hypodensities in the cerebral periventricular and deep white matter,likely a manifestation of chronic small vessel disease. Ventricular System and Extra-Axial Spaces: No extra-axial fluidcollections. Basal cisterns are patent. No hydrocephalus. Osseous and Extracranial Structures: No calvarial fracture or significantsoft tissue hematoma. No significant paranasal sinus disease. Evidence ofleft ocular lens surgery. CTA HEAD: No aneurysm or arteriovenous malformation. Intracranial internal carotid arteries: No occlusion or high gradestenosis. Anterior cerebral arteries: No occlusion or high grade stenosis. Middle cerebral arteries: No occlusion or high grade stenosis. Vertebrobasilar system: No occlusion or high grade stenosis. Dominantright vertebral artery with markedly hypoplastic left vertebral arteryprimarily terminating at the posterior inferior cerebellar artery. Posterior cerebral arteries: No occlusion or high grade stenosis. Venous: No dural sinus thrombosis. CTA NECK: Aortic Arch and Branch Vessel Origins: The left vertebral artery arisesdirectly from the aorta. No high grade stenosis. Right Carotid Artery: No occlusion, high grade stenosis or dissection. Left Carotid Artery: No occlusion, high grade stenosis or dissection. Right Vertebral Artery: No occlusion, high grade stenosis or dissection. Left Vertebral Artery: Marked hypoplasia with the diameter of thevertebral artery less than 1 mm. Secondary high-grade stenosis orocclusion of the hypoplastic artery between the posterior inferiorcerebellar artery and basilar artery. Venous structures: The jugular veins enhance normally. NON-VASCULAR FINDINGS: Lungs and Airways: No acute abnormality. Soft tissues: Multifocal cystic nodules expanding the thyroid bilaterallyprimarily on the right with the dominant cystic nodular mass measuring upto 2.8 cm thick- walled cystic nodule extending into the upper mediastinumposteriorly on the right. Bones: Chronic disc degeneration at C5-6 with multilevel chronicasymmetric facet arthritis more severe on the left. IMPRESSION: 1. No acute intracranial findings on noncontrast head CT. 2. No acute large vessel occlusion, aneurysm or dissection in the head orneck. 3. Hypoplastic left vertebral artery terminating at the posteriorinferior cerebellar artery. 4. Multinodular goiter. us Andre Loo MD IMG CT HEAD/NECK Final Resu lt * CT THORACIC SPINE WITHOUT CONTRAST (09/27/2024 8:56 AM EDT) Anatomical Region Laterality Modality T-spine Computed Tomogra phy 09/27/2024 11:1 2 AM EDT Impressions 09/27/2024 11:18 AM EDT 1. No acute CT abnormality within the thoracic spine in this patient who is status post recent L1 kyphoplasty. Narrative 09/27/2024 11:[address] THORACIC SPINE WITHOUT CONTRAST Referring clinician's provided indication for this examination in Epic: * Back trauma, no prior imaging (Age >= 16y); Left-sided leg weakness, known L1 compression fracture status post kyphoplasty. Differential includes CVA versus peripheral compression TECHNIQUE: * Multidetector-row CT of the thoracic spine was performed without intravenous contrast using tailored dose modulation techniques. Images were reconstructed in the axial, coronal, and sagittal planes. COMPARISON: MRI THORACIC SPINE (NEURO) WITHOUT CONTRAST FINDINGS: THORACIC SPINE: Alignment and Vertebrae: Normal vertebral body alignment. Chronic loss of height of the superior endplates of the T3, T4 and T5 vertebral bodies within the thoracic spine appearing stable compared with recent MRI. No acute thoracic spine fracture. No evidence of inferior endplate collapse of the T12 level bordering on the bone cement within the T12-L1 disc. 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 No evidence of a moderately large disc herniation and no evidence of acute moderate or high-grade canal stenosis. Soft Tissue: Prominent coronary artery atherosclerotic calcification. Multinodular goiter. Procedure Note Joseph Moser MD - 09/27/2024 CT THORACIC SPINE WITHOUT CONTRAST Referring clinician's provided indication for this examination in Epic: *Back trauma, no prior imaging (Age >= 16y); Left-sided leg weakness, knownL1 compression fracture status post kyphoplasty. Differential includesCVA versus peripheral compression TECHNIQUE: * Multidetector-row CT of the thoracic spine was performed withoutintravenous contrast using tailored dose modulation techniques. Imageswere reconstructed in the axial, coronal, and sagittal planes. COMPARISON: MRI THORACIC SPINE (NEURO) WITHOUT CONTRAST FINDINGS: THORACIC SPINE: Alignment and Vertebrae: Normal vertebral body alignment. Chronic loss ofheight of the superior endplates of the T3, T4 and T5 vertebral bodieswithin the thoracic spine appearing stable compared with recent MRI. Noacute thoracic spine fracture. No evidence of inferior endplate collapseof the T12 level bordering on the bone cement within the T12-L1 disc. Discs and Endplates: Multilevel DISH with a mild degree of discdegeneration but relative maintenance of disc heights. No evidence of amoderately large disc herniation and no evidence of acute moderate orhigh-grade canal stenosis. Soft Tissue: Prominent coronary artery atherosclerotic calcification.Multinodular goiter. IMPRESSION: 1. No acute CT abnormality within the thoracic spine in this patient whois status post recent L1 kyphoplasty. us Adnre Loo MD IMG CT XSPECIALTY ORDERABLE S Final Result * CT LUMBAR SPINE WITH CONTRAST (09/27/2024 8:56 AM EDT) Anatomical Region Laterality Modality L-spine Computed Tomogra phy 09/27/2024 11:1 9 AM EDT Impressions 09/27/2024 11:24 AM EDT 1. Expected postoperative appearance following L1 kyphoplasty. No evidence of postoperative complication. 2. No evidence of an acute fracture. 3. In this patient with left leg pain there is chronic canal and lateral recess as well as neural foraminal stenosis at L4-5 due to a combination of facet arthritis and a chronic bulging disc.. 4. Chronic facet arthritis with secondary subtle grade 1 degenerative anterior L5- S1 spondylolisthesis. Narrative 09/27/2024 11:[address] LUMBAR SPINE WITH CONTRAST Referring clinician's provided indication for this examination in Epic: * Back trauma, no prior imaging (Age >= 16y); Left-sided leg weakness, known L1 compression fracture status post kyphoplasty. Differential includes CVA versus peripheral compression TECHNIQUE: Multidetector-row CT of the lumbar spine was performed with intravenous contrast using tailored dose modulation techniques. Images were reconstructed in the axial, coronal, and sagittal planes. COMPARISON: MRI LUMBAR SPINE (NEURO) WITHOUT CONTRAST 2024- FINDINGS: LUMBAR SPINE: Alignment and Vertebrae: Bone cement is present within the L1 vertebral body treating a superior endplate 30-40% fracture. There is a moderate component of cement which extends through the fractured superior endplate into the central portion of the T12-L1 disc. There is no evidence of bone remodeling, stress reaction or collapse of the inferior endplate of T12. There is no evidence of posterior extension of cement into the epidural space. There remains 2 mm of retropulsion of bone of the posterior superior endplate of L1 leading to mild indentation of the ventral canal, without moderate or high-grade stenosis. The remaining vertebral bodies are normal in height. There is 1 mm grade 1 degenerative anterior L5-S1 spondylolisthesis due to facet arthritis. Discs and Endplates: Relatively normal disc heights for age. Soft Tissue: No evidence of significant postoperative edema. No evidence of a drainable abscess or postoperative hematoma. No evidence of an acute moderate to large disc herniation. Chronic moderate canal, lateral recess and neural foraminal stenosis at L4-5 due to disc degeneration and facet joint arthritis. Prominent facet arthritis at L5-S1. Other Findings: Atherosclerotic abdominal aorta and iliac arteries without aneurysm. Procedure Note Joseph Moser MD - 09/27/2024 CT LUMBAR SPINE WITH CONTRAST Referring clinician's provided indication for this examination in Epic: *Back trauma, no prior imaging (Age >= 16y); Left-sided leg weakness, knownL1 compression fracture status post kyphoplasty. Differential includesCVA versus peripheral compression TECHNIQUE: Multidetector-row CT of the lumbar spine was performed withintravenous contrast using tailored dose modulation techniques. Imageswere reconstructed in the axial, coronal, and sagittal planes. COMPARISON: MRI LUMBAR SPINE (NEURO) WITHOUT CONTRAST 2024- FINDINGS: LUMBAR SPINE: Alignment and Vertebrae: Bone cement is present within the L1 vertebralbody treating a superior endplate 30-40% fracture. There is a moderatecomponent of cement which extends through the fractured superior endplateinto the central portion of the T12-L1 disc. There is no evidence of boneremodeling, stress reaction or collapse of the inferior endplate of T12.There is no evidence of posterior extension of cement into the epiduralspace. There remains 2 mm of retropulsion of bone of the posteriorsuperior endplate of L1 leading to mild indentation of the ventral canal,without moderate or high-grade stenosis. The remaining vertebral bodies are normal in height. There is 1 mm grade 1degenerative anterior L5-S1 spondylolisthesis due to facet arthritis. Discs and Endplates: Relatively normal disc heights for age. Soft Tissue: No evidence of significant postoperative edema. No evidenceof a drainable abscess or postoperative hematoma. No evidence of an acutemoderate to large disc herniation. Chronic moderate canal, lateral recess and neural foraminal stenosis atL4-5 due to disc degeneration and facet joint arthritis. Prominent facetarthritis at L5-S1. Other Findings: Atherosclerotic abdominal aorta and iliac arteries withoutaneurysm. IMPRESSION: 1. Expected postoperative appearance following L1 kyphoplasty. Noevidence of postoperative complication. 2. No evidence of an acute fracture. 3. In this patient with left leg pain there is chronic canal and lateralrecess as well as neural foraminal stenosis at L4-5 due to a combinationof facet arthritis and a chronic bulging disc.. 4. Chronic facet arthritis with secondary subtle grade 1 degenerativeanterior L5-S1 spondylolisthesis. us Andre Loo MD IMG CT XSPECIALTY ORDERABLE S Final Result * Urinalysis w/reflex Urine Culture (09/27/2024 7:02 AM EDT) Only the most recent of2 resultswithin the time period is included. COLOR Yellow Yellow [facility] CLARITY Clear [facility] GLUCOSE Negative Negative [facility] BILI Negative Negative [facility] KETONES Negative Negative [facility] SPECIFIC GRAVITY <1.005 1.005 - 1.030 [facility] BLOOD Negative Negative [facility] PH 6.0 5.0 - 8.0 [facility] Protein-UA Negative Negative [facility] NITRITE Negative Negative [facility] Leukocyte esterase, ur Negative Negative [facility] Urine (Urine) 09/27/2024 7:0 2 AM EDT 09/27/2024 8:36 AM EDT us Delma Ulloa MD URINE ORDERABLES Final Resul t [address] [address] * ECG 12-LEAD (09/27/2024 6:56 AM EDT) Ventricular Rate EKG/MIN 64 BPM [facility] Atrial Rate 64 BPM [facility] AR Interval 130 ms [facility] QRS Duration 96 ms [facility] QT Interval 428 ms [facility] QTC Interval 441 ms [facility] R Wave [place] 70 degrees [facility] T Wave [place] -13 degrees [facility] 09/27/2024 6:56 AM EDT 09/27/2024 3:02 PM EDT Narrative [facility] - 09/27/2024 3:03 PM EDT Sinus rhythm with occasional Premature ventricular complexes and Premature atrial complexes Low voltage QRS Incomplete right bundle branch block ST & T wave abnormality, consider anterior ischemia Abnormal ECG When compared with ECG of 26-Oct-2022 18:54, Premature ventricular complexes are now Present Premature atrial complexes are now Present Nonspecific T wave abnormality now evident in Inferior leads Confirmed by Harshil Pace ([id number]) on 09/27/2024 3:02:56 PM us Andre Loo MD ECG ORDERABLES Final Resul t [facility] * (ABNORMAL) LFTs (hepatic panel) (09/27/2024 4:56 AM EDT) Only the most recent of2 resultswithin the time period is included. ALKALINE PHOSPHATASE 141(H) 39 - 117 U/L [facility] TOTAL BILIRUBIN 0.6 0.0 - 1.2 mg/dL [facility] DIRECT BILIRUBIN 0.2 0.0 - 0.2 mg/dL [facility] Bilirubin (Indirect) 0.4 0 - 1.5 mg/dL [facility] AST 24 0 - 37 U/L [facility] ALT 19 0 - 40 U/L [facility] TOTAL PROTEIN 6.1(L) 6.5 - 8.0 g/dL [facility] ALBUMIN 3.5(L) 3.9 - 4.8 g/dL [facility] GLOBULIN 2.6 1 - 4.8 g/dL [facility] A/G Ratio 1.35 1.00 - 4.80 RATIO [facility] Blood 09/27/2024 4:56 AM EDT 09/27/2024 5:03 AM EDT us Delma Ulloa MD LAB BLOOD ORDERABLES Final R esult Performing Organization Address City/[facility]/ZIP Co de Phone Number [address] [address] * Lipase (09/27/2024 4:56 AM EDT) Only the most recent of2 resultswithin the time period is included. LIPASE 16 16 - 63 U/L [facility] Blood 09/27/2024 4:56 AM EDT 09/27/2024 5:03 AM EDT Delma Ulloa MD LAB BLOOD ORDERABLES Final R esult Performing Organization Address City/[facility] Co de Phone Number [address] [address] * (ABNORMAL) Basic metabolic panel (09/27/2024 4:56 AM EDT) Only the most recent of2 resultswithin the time period is included. SODIUM 141 133 - 146 mmol/L [facility] CHLORIDE 109(H) 96 - 108 mmol/L [facility] POTASSIUM 3.2(L) 3.3 - 5.1 mmol/L [facility] CO2 21 21 - 35 mmol/L [facility] BUN 11 6 - 19 mg/dL [facility] CREATININE 0.90 0.5 - 1.5 mg/dL [facility] GLUCOSE 130(H) 70 - 99 mg/dL [facility] CALCIUM 8.5 8.4 - 10.3 mg/dL [facility] EGFR 89 >59 mL/min/1.7 3m2 [facility] Comment:Estimated glomerular filtration rate calculated using the CKD-EPI refit equation. ANION GAP 14 10 - 20 mmol/L [facility] Blood 09/27/2024 4:56 AM EDT 09/27/2024 5:03 AM EDT Delma Ulloa MD LAB BLOOD ORDERABLES Final R esult [address] [address] * C. DIFFICILE PCR (09/24/2024 7:09 PM EDT) C.DIFFICILE PCR Negative Negative [facility] C.DIFFICILE STRAIN PRESUMPTIVE NEGATIVE PRESUMPTIVE NEGATIVE [facility] Comment:Detection of 027/NAP 1/BI strains of C.difficile is presumptive and is solely for epidemiological purposes and is not intended to guide or monitor treatment of infections. Stool (Stool) 09/24/2024 7:0 9 PM EDT 09/24/2024 7:43 PM EDT Jamie Alonso PA-C MICROBIOLOGY - GENERAL ORDER LORIN Final Result Performing Organization Address [facility] Co de Phone Number [address] [address] * Stool culture (09/24/2024 7:09 PM EDT) Special Requests None 09/24/2024 7:09 PM EDT [facility] Stool Culture NO SALMONELLA, SHIGELLA OR CAMPYLOBACTER ISOLATED 09/28/2024 8:08 AM EDT [facility] Stool (Stool) 09/24/2024 7:0 9 PM EDT 09/24/2024 7:42 PM EDT us Jamie Alonso PA-C MICROBIOLOGY - GENERAL ORDER LORIN Final Result Performing Organization Address [facility] Co de Phone Number [address] [address] * Dilantin (free) level (03/19/2024 10:46 AM EST) FREE DILANTIN 1.4 1.0 - 2.0 mcg/mL [facility] DPT OF LAB MED AND PAT+ Blood 03/19/2024 10:4 6 AM EST 03/19/2024 10:48 AM EST Fabiana Tripathi MD LAB BLOOD ORDERABLES Fin al Result Performing Organization Address City/[facility]/ZIP Co de Phone Number [facility] DPT OF LAB MED AND PAT+ [address] [place] [address] * BD DXA AXIAL (SPINE) WITH HIP (06/25/2023 3:43 PM EDT) Anatomical Region Laterality Modality Bone Density Bone Density 06/28/2023 9:21 AM EDT Impressions 06/28/2023 7:01 PM EDT Bone mineral density is within normal limits in the lumbar spine and bilateral hips. ATTESTATION: I, Garfield Rodriguez as teaching physician, have reviewed the images for this case and if necessary edited the report originally created by Yasir Garcia. Narrative 06/28/2023 7:01 PM EDT BD DXA AXIAL (SPINE) WITH HIP INDICATION: Long-term use of high risk medications. Screening for osteoporosis. COMPARISON: None. Evaluation of the lumbar spine and both hips is obtained and appears technically adequate. The lumbar spine from L1 through L4 discloses a total bone mineral density of 1.028 g/cm2 T-score: -0.6 Z-Score: 0.4 WHO Classification: Normal The right hip (total) has a total bone mineral density of 1.036 g/cm2 T-score: 0.0 Z-Score: 0.8 WHO Classification: Normal The right hip (neck) has a total bone mineral density of 0.816 g/cm2 T-score: -0.8 Z-Score: 0.5 The left hip (total) has a total bone mineral density of 1.019 g/cm2 T-score: -0.1 Z-Score: 0.7 WHO Classification: Normal The left hip (neck) has a total bone mineral density of 0.792 g/cm2 T-score: -1.0 Z-Score: 0.3 FRAX: 10-Year Fracture Risk Major Osteoporotic Fracture: 5.4% Hip Fracture: 1.1% Procedure Note Garfield Rodriguez MD - 06/28/2023 BD DXA AXIAL (SPINE) WITH HIP INDICATION: Long-term use of high risk medications. Screening forosteoporosis. COMPARISON: None. Evaluation of the lumbar spine and both hips is obtained and appearstechnically adequate. The lumbar spine from L1 through L4 discloses a total bone mineral densityof 1.028 g/cm2 T-score: -0.6 Z-Score: 0.4 WHO Classification: Normal The right hip (total) has a total bone mineral density of 1.036 g/cm2 T-score: 0.0 Z-Score: 0.8 WHO Classification: Normal The right hip (neck) has a total bone mineral density of 0.816 g/cm2 T-score: -0.8 Z-Score: 0.5 The left hip (total) has a total bone mineral density of 1.019 g/cm2 T-score: -0.1 Z-Score: 0.7 WHO Classification: Normal The left hip (neck) has a total bone mineral density of 0.792 g/cm2 T-score: -1.0 Z-Score: 0.3 FRAX: 10-Year Fracture Risk Major Osteoporotic Fracture: 5.4% Hip Fracture: 1.1% IMPRESSION: Bone mineral density is within normal limits in the lumbar spine andbilateral hips. ATTESTATION: I, Garfield Rodriguez as teaching physician, have reviewed theimages for this case and if necessary edited the report originally createdby Yasir Garcia. Fabiana Tripathi MD IMG BD BONE DENSITY DEXA Final Result * COLONOSCOPY FOR RESULT ENTRY ONLY (04/11/2022) Historical Provider HEALTH MAINTENANCE Final Result * Outside Hepatitis C Virus Screening (04/28/2016) Hepatitis C Screening - External Neg Historical Provider LAB BLOOD ORDERABLES Ngozi l Result from Last 3 Months or Most Recently Relevant to Health Maintenance Insurance [employer] Member Subscriber Plan / Payer (Ef fective 2018-Present) Name:Jamie Gaston Relation to Subscriber:Self Name:Jamie Gaston Payer ID:[id number] (NAIC) Group ID:Not on file Type:Indemnity Address: [facility] [address] [place] [id number] [employer] MEDICARE POS PPO REPLACEMENT MEDICARE PART A & B [employer] [place] MED[employer] POS PPO REPLACEMENT MEDICARE PART A & B Member Subscriber Plan / Payer (Ef fective 2004-Present) Name:Jamie Gaston Member ID:[id number] Relation to Subscriber:Self Name:Jamie Gaston Subscriber ID:[id number] Payer ID:[id number] Group ID:Not on file Type:Medicare Address: [employer] [facility] [address] [employer] [place] MEDICARE POS PPO REPLACEMENT MEDICARE PART A & B [employer] [place] MEDICARE POS PPO REPLACEMENT MEDICARE PART A & [place] [address] [address] [employer] [place] MEDICARE POS PPO REPLACEMENT MEDICARE PART A & B [employer] [place] MEDICARE POS PPO REPLACEMENT MEDICARE PART A & B Member Subscriber Plan / Payer (Ef fective 2004-Present) Name:Jamie Gaston Member ID:[id number] Relation to Subscriber:Self Name:Jamie Gaston Subscriber ID:[id number] Payer ID:[id number] Group ID:Not on file Type:Medicare Address: [employer] [address] [employer] [place] MEDICARE POS PPO REPLACEMENT MEDICARE PART A & B Member Subscriber Plan / Payer (Ef fective 2004-Present) Name:Rosendocaty Jamie Member ID:[id number] Relation to Subscriber:Self Name:Jamie Gaston Subscriber ID:[id number] Payer ID:[id number] Group ID:Not on file Type:Medicare Address: [employer] [address] [facility] [employer] [place] MEDICARE POS PPO REPLACEMENT MEDICARE PART A & B [employer] [place] MEDICARE POS PPO REPLACEMENT [place] [id number] Advance Directives For more information, please contact: [phone] (9AM - 5PM [facility], Sunday-Sunday) * Full Code (Latest Code Status on File) Date Activated Date Inactivated Comments 09/27/2024 4:36 PM Question Answer Comments Code Status Confirmed With: Patient Code Status Communicated To: Inpatient Attending Care Teams Senior Quality Assurance Specialist Relationship Specialty Start Date End Date Fabiana Tripathi MD [address] [place] [address] 7 [place] [address] angel PCP - General Family Medicine 08/08/22 Ayush Draper MD [address] [place] [address] [place] [address] Registered Nurse Pulmonary Disease 01/26/20 Beto Maravilla MD [address] [address] Psychiatry 01/26/20 Jamie Rai DO [address] [address] Cardiology 01/26/20 Guzman Nicolas MD [address] [place] [address] Ophthalmology 01/26/20 Carlos A Enamorado MD [address] [place] [address], [address] [address] [email or web address] Urology 01/26/20 Kvng Joya MD, PhD [address] [place] [address], [address] [address] Dermatology 01/26/20 Hector Albrecht MD [address] [place] [address], [address] [address] [email or web address] Otolaryngology 01/26/20 Additional Source Comments The information contained in this document represents components of the legal health record. It is not the complete legal health record.[facility]ly [facility]
--- OUTSIDE RECORDS SUMMARY | 2024-11-05 16:41 | XMS_ITS | Patient Health Record ---
Author Organization [facility] Address [address] [place] [id number] Care Team Providers Care Metal Sponge Making Machine Operator Name Role Phone CECI ESQUIVEL MD Primary Care Provider Lopez Juniro Jr Unavailable Allergies Allergen (clinical drug ingredient) Drug/Non Drug Allergy documented on EMR Reaction Allergy Type Onset Date Status seasonal (uncoded) Unknown Allergy A ctive dampness (uncoded) Unknown Allergy A ctive Reason For Referral No Information Medications Medication SIG (Take, Route, Frequency, Duration) Notes Start Date End Date Status Imodium Advanced Act beltran Saline Nasal [place] 0.65 % 2 sprays in ea ch [...] Problem Status W/U Status Risk Notes Problem 099032285 Colon cancer screening (Z12.11) Active confirmed Problem History of polyp of colon (situation) (724009190) Personal history of colonic polyps (Z86.010) Active confirmed Problem 12940353 Hemorrhoids, unspecified hemorrhoid type (K64.9) Active confirmed Problem 450697196 Long-term curren t use of high risk medication other than anticoagulant (Z79.899) Active confirmed Problem 83231055 Diarrhea, unspecified type (R19.7) Active confirmed Plan Of Treatment Future Test Test Name Order Date COLONOSCOPY 02/02/2016 COLONOSCOPY 03/09/2022 Insurance Providers Payer Name Payer Address Payer Phone Subscriber Number Group Number Insured Name Patient Relationship to Insured Coverage Start Date Coverage End Date [facility] [address] [place] [phone] [id number] RADHA SHOOK Self - patient is the [...]
--- OUTSIDE RECORDS SUMMARY | 2024-11-05 16:42 | XMS_ITS | Encounter Summary ---
Author Organization [facility] Address [address] [facility] [address] [place] [address] Phone Care Team Providers Care Apprise Counselor Name Role Phone Ayush Draper MD Unavailable Beto Maravilla MD Unavailable [phone] Jamie Rai DO Unavailable [phone] Guzman Nicolas MD Unavailable [phone] Carlos A Enamorado MD Unavailable Kvng Joya MD, PhD Unavailable Hector Albrecht MD Unavailable [phone] Fabiana Tripathi MD Primary Care Provider + Fabiana Tripathi MD Primary Care Provider + Encounter Details Date Type Department Care Team (Late st Contact Info) Description 06/03/2022 Procedure Pass [facility], Ct Scan - [address] [address] Social History Tobacco Use Types Packs/Day Years [...] Date of Assessment Author No Risk Indicated 06/03/2022 3:33 PM EDT Lisa Reis RN * [place] Suicide Severity Rating Scale (Screener/Recent Self-Report) Question Answer Date of Assessment Author 1. Wish to be (Past 1 Month) No 023 3:33 PM EDT Lisa Reis RN 2. Non-Specific Active Suici samantha Thoughts (Past 1 Month) No 06/03/2022 3:33 PM EDT Lisa Reis RN 6. Suicidal Behavior (Lifetime) No 3 3:33 PM EDT Lisa Reis RN documented as of this encounter Plan of Treatment Upcoming Encounters Date Type Department Care Team (Late st Contact Info) Description 07/02/2024 Procedure Pass [facility], Ct Scan - [facility] [address] [place] [address] 01/21/2025 1:15 PM EST Office Visit [facility] Medicine [address] [place] [address] Fabiana Tripathi MD [address] [facility], [address] [place] [address] angel 02/02/2025 2:30 PM EST Appointment [facility], Ct Scan - [address] [address] Fabiana Tripathi MD [address] [facility], [facility] [address] [place] [address] angel 04/16/2025 2:30 PM EST Office Visit [facility] Neurology [address] [place] [address] Daniel Bustillo MD [address] [place] [address], [address] [place] [address] documented as of this encounter Visit Diagnoses Not on filedocumented in this encounter Additional Health Concerns Infection Onset Date Last Indicated Resolved Time CoV-Risk 06/15/2023 06/15/2023 06/26/2023 1:22 AM EDT CDiff-Risk 09/24/2024 09/24/2024 09/24/2024 8:48 PM EDT Assessment Noted Time PHQ-2 Depression Total Score: 0 08/08/19 10:24 AM EDT documented as of this encounter Care Teams Apprise Counselor Relationship Specialty Start Date End Date Fabiana Tripathi MD [facility], [address] [place] [address] angel PCP - General Family Medicine 07/27/21 08/07/22 Fabiana Tripathi MD [address] [facility], [address] [place] [address] angel PCP - General Family Medicine 08/08/22 Ayush Draper MD [address] [address] [place] [address] Registered Nurse Pulmonary Disease 01/26/20 Beto Maravilla MD [address] [address] Psychiatry 01/26/20 Jamie Rai DO [address] [address] [email or web address] Cardiology 01/26/20 Guzman Nicolas MD [address] [place] [address] Ophthalmology 01/26/20 Carlos A Enamorado MD [address] [place] [address] [email or web address] Urology 01/26/20 Kvng Joya MD, PhD [address] [place] [place] [address] Dermatology 01/26/20 Hector Albrecht MD [address] [place] [place] [address] [email or web address] Otolaryngology 01/26/20 documented as of this encounter Additional Source Comments The information contained in this document represents components of the legal health record. It is not the complete legal health record.[facility]
--- OUTSIDE RECORDS SUMMARY | 2024-11-05 16:42 | XMS_ITS | Encounter Summary ---
Author Organization [facility] Address [address] [facility] [address] [place] [address] Phone Care Team Providers Care Professor Of Pathology Name Role Phone Ayush Draper MD Unavailable Beto Maravilla MD Unavailable [phone] Jamie Rai DO Unavailable [phone] Guzman Nicolas MD Unavailable [phone] Carlos A Enamorado MD Unavailable Kvng Joya MD, PhD Unavailable Hector Albrecht MD Unavailable [phone] Fabiana Tripathi MD Primary Care Provider + Fabiana Tripatih MD Primary Care Provider + Encounter Details Date Type Department Care Team (Late st Contact Info) Description 06/03/2022 Procedure Pass [facility], Ct Scan - [address] [address] Social History Tobacco Use Types Packs/Day Years [...] 3:33 PM EDT Lisa Reis RN * [place] Suicide Severity Rating Scale (Screener/Recent Self-Report) Question [...] st Contact Info) Description 07/02/2024 Procedure Pass [facility], Ct Scan - [facility] [address] [place] [address] 01/21/2025 1:15 PM EST Office Visit [facility] Medicine [address] [place] [address] Fabiana Tripathi MD [address] [facility], [address] [place] [address] angel 02/02/2025 2:30 PM EST Appointment [facility], Ct Scan - [address] [address] Fabiaan Tripathi MD [address] [facility], [facility] 7 [place] [address] angel 04/16/2025 2:30 PM EST Office Visit [facility] Neurology [address] [place] [address] Daniel Bustillo MD [address] [place] [address], [address] [place] [address] documented as of this encounter Visit Diagnoses Not on filedocumented in this encounter Additional Health Concerns Infection Onset Date Last Indicated Resolved Time CoV-Risk 06/15/2023 06/15/2023 06/26/2023 1:22 AM EDT CDiff-Risk 09/24/2024 09/24/2024 09/24/2024 8:48 PM EDT Assessment Noted Time PHQ-2 Depression Total Score: 0 08/08/19 10:24 AM EDT documented as of this encounter Care Teams Professor Of Pathology Relationship Specialty Start Date End Date Fabiana Tripathi MD [facility], [address] [place] [address] angel PCP - General Family Medicine 07/27/21 08/07/22 Fabiana Tripathi MD [address] [facility], [address] [place] [address] angel PCP - General Family Medicine 08/08/22 Ayush Draper MD [address] [place] [address] [place] [address] Registered Nurse Pulmonary Disease 01/26/20 Beto Maravilla MD [address] [address] Psychiatry 01/26/20 Jamie Rai DO [address] [address] [email or web address] Cardiology 01/26/20 Guzman Nicolas MD [address] [place] [address] Ophthalmology 01/26/20 Carlos A Enamorado MD [address] [place] [address] [email or web address] Urology 01/26/20 Kvng Joya MD, PhD [address] [place] [address] Dermatology 01/26/20 Hector Albrecht MD [address] [place] [address] [email or web address] Otolaryngology 01/26/20 documented as of this encounter Additional Source Comments The information contained in this document represents components of the legal health record. It is not the complete legal health record.[facility]
--- OUTSIDE RECORDS SUMMARY | 2024-11-05 16:42 | XMS_ITS | Encounter Summary ---
Author Organization [facility] Address [address] [facility] [address] [place] [address] Phone Care Team Providers Care Ambulance Attendant Name Role Phone Ayush Draper MD Unavailable Beto Maravilla MD Unavailable [phone] Jamie Rai DO Unavailable [phone] Guzman Nicolas MD Unavailable [phone] Carlos A Enamorado MD Unavailable Kvng Joya MD, PhD Unavailable Hector Albrecht MD Unavailable [phone] Fabiana Tripathi MD Primary Care Provider + Fabiana Tripathi MD Primary Care Provider + Encounter Details Date Type Department Care Team (Late st Contact Info) Description 06/03/2022 Procedure Pass [facility], Ct Scan - [address] [address] Social History Tobacco Use Types Packs/Day Years [...] 3:33 PM EDT Lisa Reis RN * [place] Suicide Severity Rating Scale (Screener/Recent Self-Report) Question [...] st Contact Info) Description 07/02/2024 Procedure Pass [facility], Ct Scan - [facility] 30 [place] [address] 01/21/2025 1:15 PM EST Office Visit [facility] Medicine [address] [place] [address] Fabiana Tripathi MD [address] [facility], [address] [place] [address] angel 02/02/2025 2:30 PM EST Appointment [facility], Ct Scan - [address] [address] Fabiana Tripathi MD [address] [facility], [facility] 7 [place] [address] angel 04/16/2025 2:30 PM EST Office Visit [facility] Neurology [address] [place] [address] Daniel Bustillo MD [address] [place] [address], 2nd [place] [address] documented as of this encounter Visit Diagnoses Not on filedocumented in this encounter Additional Health Concerns Infection Onset Date Last Indicated Resolved Time CoV-Risk 06/15/2023 06/15/2023 06/26/2023 1:22 AM EDT CDiff-Risk 09/24/2024 09/24/2024 09/24/2024 8:48 PM EDT Assessment Noted Time PHQ-2 Depression Total Score: 0 08/08/19 10:24 AM EDT documented as of this encounter Care Teams Ambulance Attendant Relationship Specialty Start Date End Date Fabiana Tripathi MD [facility], [address] [place] [address] angel PCP - General Family Medicine 07/27/21 08/07/22 Fabiana Tripathi MD [address] [facility], [address] [place] [address] angel PCP - General Family Medicine 08/08/22 Ayush Draper MD [address] [place] [address] [place] [address] Registered Nurse Pulmonary Disease 01/26/20 Beto Maravilla MD [address] [address] Psychiatry 01/26/20 Jamie Rai DO [address] [address] [email or web address] Cardiology 01/26/20 Guzman Nicolas MD [address] [place] [address] Ophthalmology 01/26/20 Carlos A Enamorado MD [address] [place] [address] [email or web address] Urology 01/26/20 Kvng Joya MD, PhD [address] [place] [address] Dermatology 01/26/20 Hector Albrecht MD [address] [place] [address] [email or web address] Otolaryngology 01/26/20 documented as of this encounter Additional Source Comments The information contained in this document represents components of the legal health record. It is not the complete legal health record.[facility]
--- OUTSIDE RECORDS SUMMARY | 2024-11-05 16:43 | XMS_ITS | Encounter Summary ---
Author Organization [facility] Address [address] [facility] [address] [place] [address] Phone Care Team Providers Care Shirt Bander Name Role Phone Ayush Draper MD Unavailable Beto Maravilla MD Unavailable [phone] Jamie Rai DO Unavailable [phone] Guzman Nicolas MD Unavailable [phone] Carlos A Enamorado MD Unavailable Kvng Joya MD, PhD Unavailable Hector Albrecht MD Unavailable [phone] Fabiana Tripathi MD Primary Care Provider + Fabiana Tripathi MD Primary Care Provider + Encounter Details Date Type Department Care Team (Late st Contact Info) Description 02/17/2022 Procedure Pass [facility], [address] [place] [address] Social History Tobacco Use Types Packs/Day Years [...] st Contact Info) Description 07/02/2024 Procedure Pass [address] [address] 01/21/2025 1:15 PM EST Office Visit [facility] Medicine [address] [place] [address] Fabiana Tripathi MD [address] [place] [address] angel 02/02/2025 2:30 PM EST Appointment [address] [address] Fabiana Tripathi MD [address] [place] [address] angel 04/16/2025 2:30 PM EST Office Visit [facility] Neurology [address] [place] [address] Daniel Bustillo MD [address] [facility], 2nd [place] [address] [email or web address] documented as of this encounter Visit Diagnoses Not on filedocumented in this encounter Additional Health Concerns Infection Onset Date Last Indicated Resolved Time CoV-Risk 06/15/2023 06/15/2023 06/26/2023 1:22 AM EDT CDiff-Risk 09/24/2024 09/24/2024 09/24/2024 8:48 PM EDT Assessment Noted Time PHQ-2 Depression Total Score: 0 08/08/19 10:24 AM EDT documented as of this encounter Care Teams Shirt Bander Relationship Specialty Start Date End Date Fabiana Tripathi MD [address] [place] [address], [address] [address] angel PCP - General Family Medicine 07/27/21 08/07/22 Fabiana Tripathi MD [address] [place] [address], [address] [place] [address] angel PCP - General Family Medicine 08/08/22 Ayush Draper MD [address] [place] [address] [place] [address] Registered Nurse Pulmonary Disease 01/26/20 Beto Maravilla MD [address] [place] [address] Psychiatry 01/26/20 Jamie Rai DO [address] [place] [address] [place] [address] [email or web address] Cardiology 01/26/20 Guzman Nicolas MD [address] [place] [address] Ophthalmology 01/26/20 Carlos A Enamorado MD [address] [place] [address], [address] [place] [address] [email or web address] [email or web address] 01/26/20 Kvng Joya MD, PhD [address] [place] [address], [address] [place] [address] Dermatology 01/26/20 Hector Albrecht MD [address] [place] [address], [address] [place] [address] [email or web address] Otolaryngology 01/26/20 documented as of this encounter Additional Source Comments The information contained in this document represents components of the legal health record. It is not the complete legal health record.[facility]
== END 2024-11-05 14:52 | disposition home or self-care (01) ==
LOC: HO.HNS 14:06
PROVIDERS: PCP Family Medicine; Visit Provider Physician Assistant
DX: M79.605 Pain in left leg (principal)
CPT/HCPCS: 99204

== ENCOUNTER → 2024-11-05 14:05 | Outpatient (BNVA) | payer MEDICARE, SELFPAY | PROVIDERS: PCP Family Medicine; Visit Provider Physician Assistant | DX: M79.605 Pain in left leg (principal) | CPT/HCPCS: 99202 ==